=== PATIENT | male | born 1965 | race Caucasian/White ===

== ENCOUNTER 2021-01-11 18:53 | Emergency (ER) | payer MEDICAID, SELFPAY ==
--- NOTE | ~2021-01-11 | XR_ITS ---
EXAMINATION: XR BILATERAL ANKLES/FEET CLINICAL INFORMATION: Swelling and pain COMPARISON: None TECHNIQUE: AP and oblique views of each ankle. AP, lateral and oblique views of each foot. FINDINGS: No acute fracture or dislocation. Small marginal osteophytes along the tibiotalar joints bilaterally. Moderate right and small left plantar calcaneal enthesophytes. Tiny Achilles tendon enthesophyte is present bilaterally. Mild degenerative changes of the first metatarsophalangeal joints, associated with small bunions on each foot. Trace bilateral vascular calcifications. XR/XR ankle RT min 3V IMPRESSION: No acute findings. Degenerative changes as described.
--- NOTE | ~2021-01-11 | XR_ITS ---
EXAMINATION: XR BILATERAL ANKLES/FEET CLINICAL INFORMATION: Swelling and pain COMPARISON: None TECHNIQUE: AP and oblique views of each ankle. AP, lateral and oblique views of each foot. FINDINGS: No acute fracture or dislocation. Small marginal osteophytes along the tibiotalar joints bilaterally. Moderate right and small left plantar calcaneal enthesophytes. Tiny Achilles tendon enthesophyte is present bilaterally. Mild degenerative changes of the first metatarsophalangeal joints, associated with small bunions on each foot. Trace bilateral vascular calcifications. XR/XR ankle LT min 3V IMPRESSION: No acute findings. Degenerative changes as described.
--- NOTE | ~2021-01-11 | XR_ITS ---
EXAMINATION: XR BILATERAL ANKLES/FEET CLINICAL INFORMATION: Swelling and pain COMPARISON: None TECHNIQUE: AP and oblique views of each ankle. AP, lateral and oblique views of each foot. FINDINGS: No acute fracture or dislocation. Small marginal osteophytes along the tibiotalar joints bilaterally. Moderate right and small left plantar calcaneal enthesophytes. Tiny Achilles tendon enthesophyte is present bilaterally. Mild degenerative changes of the first metatarsophalangeal joints, associated with small bunions on each foot. Trace bilateral vascular calcifications. XR/XR foot LT 2V IMPRESSION: No acute findings. Degenerative changes as described.
--- NOTE | ~2021-01-11 | XR_ITS ---
EXAMINATION: XR BILATERAL ANKLES/FEET CLINICAL INFORMATION: Swelling and pain COMPARISON: None TECHNIQUE: AP and oblique views of each ankle. AP, lateral and oblique views of each foot. FINDINGS: No acute fracture or dislocation. Small marginal osteophytes along the tibiotalar joints bilaterally. Moderate right and small left plantar calcaneal enthesophytes. Tiny Achilles tendon enthesophyte is present bilaterally. Mild degenerative changes of the first metatarsophalangeal joints, associated with small bunions on each foot. Trace bilateral vascular calcifications. XR/XR foot RT 2V IMPRESSION: No acute findings. Degenerative changes as described.
--- NOTE | ~2021-01-11 | XR_ITS ---
EXAMINATION: XR CHEST CLINICAL INFORMATION: Bilateral lower extremity swelling. COMPARISON: 11/08/2019 TECHNIQUE: PA and lateral views of the chest were obtained. FINDINGS: Lungs are hyperexpanded and clear. No consolidation, pneumothorax, or pleural effusion. Cardiac and mediastinal contours are normal. Pulmonary vasculature is unremarkable. Trachea is midline. Degenerative disc disease is present in the thoracic spine. XR/XR chest 2V IMPRESSION: No acute cardiopulmonary findings.
--- NOTE | ~2021-01-11 | US_ITS ---
EXAMINATION: US VENOUS ULTRASOUND WITH DOPPLER LOWER EXTREMITY, BILATERAL CLINICAL INFORMATION: Bilateral foot swelling COMPARISON: None TECHNIQUE: Ultrasound of the deep veins is performed from the hip to the calf with compression sonography and color and pulse Doppler assessment. Spectral analysis with color-flow imaging is performed. FINDINGS: RIGHT: There is normal venous compression and respiratory variation and augmented flow. The visualized common femoral vein, superficial femoral vein, profunda femoral vein, popliteal vein, and the trifurcation region shows no evidence of deep venous thrombosis. There is no significant popliteal fossa cyst. LEFT: There is normal venous compression and respiratory variation and augmented flow. The visualized common femoral vein, superficial femoral vein, profunda femoral vein, popliteal vein, and the trifurcation region shows no evidence of deep venous thrombosis. There is no significant popliteal fossa cyst. If the patient's symptoms persist, followup ultrasound in 5 days 7 days might be of value to exclude proximal propagation from a non-visualized calf vein. US/US venous duplex LE BI IMPRESSION: No DVT demonstrated in either lower extremity.
[2021-01-11 19:54] VITALS: BP 172/90; PULSE 79; RESP 18; TEMP 37.1; O2SAT 98; BMI 29.8
[2021-01-11 20:51] LABS: MANUAL DIFF FLAG NO
[2021-01-11 20:52] LABS: Basophils Percent Auto 0.4 % (0-2); Eosinophils Absolute Auto 0.2 X10*3/uL (0.0-0.4); Eosinophils Percent Auto 2.7 % (0-4); Hematocrit 39.2 % (42-52); Hemoglobin 12.8 g/dl (14.0-18.0); Imm Gran Abs Auto 0.04 X10*3/uL (0.00-0.03); Imm Gran Pct Auto 0.5 % (0.0-0.4); Lymphocytes Absolute Auto 1.2 X10*3/uL (1.2-4.9); Lymphocytes Percent Auto 15.8 % (20-40); Mean Corpuscular HGB Conc 32.7 g/dl (31.0-36.0); Mean Corpuscular Hemoglobin 29.4 pg (27.0-33.0); Mean Corpuscular Volume 89.9 fL (80-98); Mean Platelet Volume 9.8 fL (9.4-12.4); Monocytes Absolute Auto 0.6 X10*3/uL (0.1-1.2); Monocytes Percent Auto 8.1 % (2-11); Neutrophils Absolute Auto 5.5 X10*3/uL (2.0-8.3); Neutrophils Percent Auto 72.5 % (45-73); Platelet Count 182 X10*3/uL (160-400); Red Blood Count 4.36 X10*6/uL (4.60-5.80); Red Cell Distribution Width 12.2 % (11.0-16.0); White Blood Count 7.5 X10*3/uL (4.8-10.8)
[2021-01-11 21:13] LABS: Anion Gap 14 (12-20); Blood Urea Nitrogen 14 mg/dL (9-16); Calcium 9.2 mg/dL (8.4-10.2); Carbon Dioxide 26 mmol/L (22-29); Chloride 104 mmol/L (96-108); Creatinine Clr Calc Pharmacy 130.8; Estimated Glomerular Filt Rate > 60; Glucose Random 89 mg/dL (60-115); Potassium 4.4 mmol/L (3.3-5.1); Sodium 140 mmol/L (135-145)
[2021-01-11 21:20] LABS: B Type Natriuretic Peptide 184 pg/mL (<100)
[2021-01-12] VITALS: BP 147/86; PULSE 55; RESP 15; TEMP 37.1; O2SAT 98
--- NOTE | 2021-01-12 00:15 | ED_ITS ---
HPI - Extremity Injury (Lower) General Chief Complaint: Extremity Injury, Lower Stated Complaint: feet swelling Time Seen by Provider: 01/11/21 22:26 Source: patient Mode of arrival: ambulatory Limitations: no limitations History of Present Illness HPI Narrative: Patient presents to ED for bilateral swelling of ankle and foot for the past 2 weeks. Patient states no chest pain or shortness of breath. Patient states pain in the plantar aspect of foot. Denies any recent trauma to lower extremities. Patient states no chest pain coughing up blood, calf pain, recent long travel, recent surgery. Related Data Previous Rx's Medication Instructions Recorded naproxen 500 mg tablet 500 mg PO BID PRN #20 tab 01/12/21 Allergies Allergy/AdvReac Type Severity Reaction Status Date / Time No Known Allergies Allergy Verified 01/11/21 19:53 Review of Systems Review of Systems: Yes all other systems are reviewed and are negative Constitutional: Constitutional: Reports as per HPI and Reports no additional constitutional complaints Eyes: Eyes: Reports as per HPI and Reports no additional eye complaints ENT: Reports system reviewed and no additional complaints, except as documented and Reports as per HPI Respiratory: Respiratory: Reports as per HPI Gastrointestinal: Gastrointestinal: Reports as per HPI and Reports no additional gastrointestinal complaints Musculoskeletal: Musculoskeletal: Reports no additional musculoskeletal complaints and Reports as per HPI Comments: Bilateral ankle/foot swell ing/pain Neurologic: Reports system reviewed and no additional complaints, except as documented and Reports as per HPI Psychiatric: Psychiatric: Reports no additional psychiatric complaints and Reports as per HPI ON LICENSE OF [facility] Past Medical History Medical History (Updated 01/12/21 @ 00:40 by JIMMY Manning) Arthritis Patient denies medical problems Social History Social History Advance Directives: No Advance Directives Information Provided: Yes Physical Exam Vital Signs: Vital Signs: Last Vital Signs Temp 98.7 F 01/12/21 00:00 Pulse 55 01/12/21 00:00 Resp 15 01/12/21 00:00 BP 147/86 H 01/12/21 00:00 Pulse Ox 98 01/12/21 00:00 Body Mass Index 29.8 Const: General: cooperative, healthy appearing, comfortable, no acute distress, well developed, alert, awake and Physically active Orientation/consciousness: patient oriented x3 HENMT: Head: Yes normal to inspection, Yes No palpable skull fracture present, Yes normocephalic, Yes atraumatic and No abrasion Eyes: General: appearance normal, both eyes and all related structures Neck: Neck: Yes normal visual inspection, Yes full ROM, Yes no lymph adenopathy, Yes no meningeal signs, Yes trachea midline, Yes supple and No tender Chest: Chest palpation & inspection: normal inspection of the chest and normal palpation of entire chest wall Resp: Effort & Inspection: normal respiratory effort and able to speak in complete sentences Cardio: Jugular venous distension: no JVD Heart sounds: S1 normal heart sound present and S2 normal heart sound present GI: Inspection: Yes normal to inspection and No abdominal wall ecchymosis Palpation (GI): Soft to palpation, not firm, nontender, no guarding and not rigid : General: No CVA tenderness and Yes no CVA tenderness Back/Spine/Pelvis: Back: no CVA tenderness, No CVA tenderness and No back tenderness Skin: General skin exam: no rashes or lesions noted and elasticity normal Neuro: General: patient oriented x3, gait normal, moves all extremities, no meningeal signs and CN's II-XI intact bilaterally Extrem: Other: Lower extremities bilaterally positive for slight swelling of ankle and foot. Negative for any redness, pitting edema, or tenderness. Vascular/motor/neuro exam of lower extremities intact. Psych: Appearance: grossly normal, well kempt and not disheveled Course Course Course Narrative: Patient was wrapping medical screen. EKG and BNP was ordered Reevaluation(s) Reevaluation #1: BNP negative. EKG sinus Justin negative for STEMI. No need for troponin. Patient is not having any chest pain or shortness of breath. Lower extremities negative for any DVT is for ultrasound for. X-rays negative for any fractures. Patient to be discharged. X-rays shows arthritis of foot and ankle. Time: 20:37 MDM - Extremity Injury (Lower) MDM Narrative Medical decision making narrative: Venous stasis. Degenerate disc disease Lab Data Result diagrams: 01/11/21 20:47 01/11/21 20:47 Labs: Lab Results 01/11/21 01/11/21 01/11/21 Range/Units 20:47 20:47 20:47 WBC 7.5 (4.8-10.8) X10*3/uL RBC 4.36 L (4.60-5.80) X10*6/uL Hgb 12.8 L (14.0-18.0) g/dl Hct 39.2 L (42-52) % MCV 89.9 (80-98) fL MCH 29.4 (27.0-33.0) pg MCHC 32.7 (31.0-36.0) g/dl RDW 12.2 (11.0-16.0) % Plt Count 182 (160-400) X10*3/uL MPV 9.8 (9.4-12.4) fL Immature Gran % (Auto) 0.5 H (0.0-0.4) % Neut % (Auto) 72.5 (45-73) % Lymph % (Auto) 15.8 L (20-40) % Spink % (Auto) 8.1 (2-11) % Eos % (Auto) 2.7 (0-4) % Baso % (Auto) 0.4 (0-2) % Lymph # (Auto) 1.2 (1.2-4.9) X10*3/uL Spink # (Auto) 0.6 (0.1-1.2) X10*3/uL Eos # (Auto) 0.2 (0.0-0.4) X10*3/uL Baso # (Auto) 0.0 (0.0-0.2) X10*3/uL Abs Immat Gran (auto) 0.04 H (0.00-0.03) X10*3/uL Absolute Neuts (auto) 5.5 (2.0-8.3) X10*3/uL Absolute Nucleated RBC 0.000 (0.0-0.012) X10*3/uL Nucleated RBC % (auto) 0.0 (0.0-0.2) /100WBC Sodium 140 (135-145) mmol/L Potassium 4.4 (3.3-5.1) mmol/L Chloride 104 (96-108) mmol/L Carbon Dioxide 26 (22-29) mmol/L Anion Gap 14 (12-20) BUN 14 (9-16) mg/dL Creatinine 0.78 (0.5-1.4) mg/dL Estim Creat Clear Calc 130.8 Estimated GFR > 60 Random Glucose 89 (60-115) mg/dL Calcium 9.2 (8.4-10.2) mg/dL B-Natriuretic Peptide 184 H (<100) pg/mL ECG Data Interpretation: Sinus bradycardia. Reticular 55. Pr interval 146. Kerrison 100. Negative STEMI Discharge Plan Discharge Clinical Impression: Venous stasis, Osteoarthritis Patient Disposition: Home, Self-Care Instructions: Osteoarthritis (ED), Venous Insufficiency (DC) Additional Instructions: EKG came back normal. Chest x-ray and blood work came back negative for signs of heart failure. Ultrasound came back negative for blood clots. X-ray shows mild osteoarthritis. Return to the ED for any chest pain, some increased swelling of lower extremities, calf pain, coughing up blood, fever, chills, or any other concerning symptoms. Please follow up wth PCP. Prescriptions: New naproxen 500 mg tablet 500 mg PO BID PRN (Reason: pain) Qty: 20 RF: 0 Print Language: Swedish
--- NOTE | 2021-01-12 00:22 | ECG_ITS ---
Test Reason : LEG SWELLING Blood Pressure : / mmHG Vent. Rate : 055 BPM Atrial Rate : 055 BPM P-R Int : 146 ms QRS Dur : 100 ms QT Int : 432 ms P-R-T Axes : 058 049 028 degrees QTc Int : 413 ms Sinus bradycardia Otherwise normal ECG When compared with ECG of 01-MAY-2003 14:26, No significant change was found Referred By: Mannie Lee Electronically Signed By:Declan Arrieta
== END 2021-01-12 01:17 | disposition home or self-care (01) ==
PROVIDERS: Emergency Provider Internal Medicine; PCP Internal Medicine
DX: I87.8 Other specified disorders of veins (principal); M19.072 Primary osteoarthritis, left ankle and foot; M19.071 Primary osteoarthritis, right ankle and foot; M79.89 Other specified soft tissue disorders; M79.672 Pain in left foot; M79.671 Pain in right foot
CPT/HCPCS: 36415; 71046; 73610; 73620; 80048; 83880; 85025; 93005; 93970; 99284

== ENCOUNTER 2021-02-23 20:28 | Emergency (ER) | payer MEDICAID, SELFPAY ==
[2021-02-23 20:56] VITALS: BP 160/100; PULSE 116; PULSE 77; RESP 18; O2SAT 96; O2SAT 98; BMI 29.5
--- NOTE | 2021-02-23 21:07 | ED_ITS ---
HPI - General Adult General Chief complaint: Overdose Stated complaint: OD Time Seen by Provider: 02/23/21 20:52 Source: patient Mode of arrival: EMS Limitations: no limitations History of Present Illness HPI narrative: 56-year-old male who presents emergency department for evaluation of an unintentional narcotic overdose. The patient states that he has been in the [facility] Suboxone program since May 2020. He states that he has been doing well with only occasional use of heroin. He states however over the past 2 days he has been using inter nasal heroin. He states that throughout the day he inhaled anywhere from 6-7 bags of heroin. The patient was apparently found unresponsive by his family who called 911. The paramedics stated the patient was awake but very slow to respond. He was given intranasal Narcan with reversal of his somnolence. At the time of evaluation in the emergency department, the patient is awake alert and able to give a good history. He states that he did have an overdose approximately 1 year prior and he believes that this is his 2nd unintentional overdose. The patient states that he has to agile scrum coach is and is scheduled to go back to the Suboxone clinic in 2 days. Patient states he does not want to talk to a care team counselor or our agile scrum coach at this time. Related Data Previous Rx's Medication Instructions Recorded naproxen 500 mg tablet 500 mg PO BID PRN #20 tab 01/12/21 Allergies Allergy/AdvReac Type Severity Reaction Status Date / Time No Known Allergies Allergy Verified 01/11/21 19:53 Review of Systems Review of Systems: Yes all other systems are reviewed and are negative [facility] Past Medical History [facility] Narrative: Past medical history: Pre diabetes, hypertension, hyperlipidemia. Past surgical history: None. Social history:. He states he lives with his family. Smokes 10 cigarettes per day times 42 years. He states that he drinks 2-4 25 oz cans of beer per day. He states that he intermittently uses intranasal heroin. Medical History Arthritis Patient denies medical problems Social History Social History Alcohol intake: unknown Patient Tobacco Use Status: Current everyday Tobacco user Substance Use Type: Heroin Advance Directives: No Advance Directives Information Provided: Yes Physical Exam Vital Signs: Vital Signs: Last Vital Signs Pulse 70 02/23/21 23:52 Resp 20 02/23/21 23:52 BP 119/66 02/23/21 23:52 Pulse Ox 96 02/23/21 23:52 Body Mass Index 29.5 Const: General: cooperative and no acute distress Orientation/consciousness: oriented to person and oriented to place Limitations: no limitations HENMT: Head: Yes normal to inspection, Yes normocephalic and Yes atraumatic Ears: external ears normal General nose exam: Normal external nose present Face and sinus: Yes normal facial exam Mouth: Normal oral and palatal mucosa present Throat: Yes posterior oropharynx normal Eyes: General: appearance normal, both eyes and all related structures Pupils: Equal, round and reactive pupils present Neck: Neck: Yes normal visual inspection, Yes no lymphadenopathy, Yes trachea midline and Yes supple Chest: Chest palpation & inspection: normal inspection of the chest and normal palpation of entire chest wall Resp: Effort & Inspection: normal respiratory effort and able to speak in complete sentences Auscultation: clear to auscultation bilaterally Cardio: Rate: regular rate Rhythm: regular rhythm Heart sounds: S1 normal heart sound present, S2 normal heart sound present and no murmurs GI: Inspection: Yes normal to inspection Palpation (GI): Soft to palpation, nontender and no guarding Auscultation: normal bowel sounds : General: Yes no CVA tenderness Back/Spine/Pelvis: Back: no CVA tenderness Skin: General skin exam: no rashes or lesions noted Neuro: General: oriented to person and oriented to place Cranial nerves: Yes CN's II-XII intact bilaterally and Yes Equal, round and reactive pupils present Cognition (Neuro): normal cognition Motor exam (neuro): 5/5 motor strength present throughout Extrem: General: Yes normal to inspection Psych: Appearance: grossly normal Speech and movement: Normal speech and movement present Affect: normal affect Attitude: cooperative Thought process: Normal thought process present Thought content: Normal thought content present Course Course Course Narrative: 56-year-old male with a history of heroin use disorder who is currently in a Suboxone program who presents emergency department for evaluation of unintentional overdose after using multiple bags of intranasal heroin today. The patient was found minimally responsive by his family who called EMS. On EMS arrival the patient was somnolent and was treated with intranasal Narcan with reversal of his symptoms. At the time of my evaluation, he has no complaints. The patient does appear to be remorseful and states that he does not want to and wants to get more help. States however he does not want to talk to our crisis counselors today but will follow up with a Suboxone clinic in 2 days. The patient's physical examination was unremarkable. The patient will be monitored for respiratory discretion for 2 hours. I will check an alcohol level on him and and alcohol level. 0015: The patient's alcohol level was below detectable limits. Tox screen was positive for opiates and positive for fentanyl. patient was observed in the emergency department for approximately 3 hours, during this time he remained awake and alert and had no respiratory distress. The patient will be discharged home. The patient is going to follow up with his Suboxone clinic in 2 days the discuss increasing his dose. The patient was discharged with intranasal Narcan I did discuss with him that if he continues to use opiates he should make sure the uses with a sober person that can given Narcan in the event that he stops breathing. Patient was discharged home. Medical Decision Making Lab Data Labs: Lab Results 02/23/21 02/23/21 Range/Units 23:09 23:26 Urine Opiates Screen POSITIVE H (Not Detect) Urine Fentanyl Screen POSITIVE H (Not Detect) Ur Barbiturates Screen Not Detected (Not Detect) Ur Phencyclidine Scrn Not Detected (Not Detect) Ur Amphetamines Screen Not Detected (Not Detect) U Benzodiazepines Scrn Not Detected (Not Detect) Urine Cocaine Screen Not Detected (Not Detect) U Marijuana (THC) Screen Not Detected (Not Detect) Ethyl Alcohol < 10 mg/dL Discharge Plan Discharge Clinical Impression: Drug overdose Qualifiers: Encounter type: initial encounter Injury intent: accidental or unintentional Qualified Code(s): T50.901A - Poisoning by unspecified drugs, medicaments and biological substances, accidental (unintentional), initial encounter Patient Disposition: Home, Self-Care Instructions: Narcotic Safety (ED), Narcotic Use Disorder (ED) Additional Instructions: Your drug screen was positive for fentanyl and this is the most likely reason why you accidentally overdosed. Most heroin that you by today has fentanyl in it and this is the cause of from opiate use. Your are being discharged home with intranasal Narcan. If you are going to continue to use heroin, you should make sure that there is a sober person with you that is not using drugs and that this person can administer intranasal Narcan in the event that you stop breathing. Follow-up with your Suboxone clinic in 1-2 days to discuss possibly increasing your dose of Suboxone to help reduce your craving for narcotics. Follow-up with your doctor in 2 days. Please return to the emergency department if your symptoms get worse or if you develop any symptoms that are concerning to you. Prescriptions: No Action naproxen 500 mg tablet 500 mg PO BID PRN (Reason: pain) Qty: 20 RF: 0
[2021-02-23 22:58] VITALS: BP 125/68; PULSE 75; O2SAT 95
[2021-02-23 23:34] LABS: Ethanol < 10 mg/dL
[2021-02-23 23:47] LABS: Amphetamine Screen Urine Not Detected (Not Detect); Barbiturates, Urine Not Detected (Not Detect); Benzodiazepines Screen Urine Not Detected (Not Detect); Cannabinoid Screen Urine Not Detected (Not Detect); Cocaine Screen Urine Not Detected (Not Detect); Fentanyl, urine POSITIVE (Not Detect); Opiate Screen Urine POSITIVE (Not Detect); Phencyclidine Screen Urine Not Detected (Not Detect)
[2021-02-23 23:52] VITALS: BP 119/66; PULSE 70; RESP 20; O2SAT 96
[2021-02-24] VITALS: BP 119/66; PULSE 67; RESP 16; O2SAT 97
[2021-02-24] MEDS: Naloxone HCl Nasal TAKE HOME 4 MG SPRAY NOSTRILALT (00:50)
--- NOTE | 2021-02-24 00:50 | PC.NURSE ---
pt was given nasal narcan to take home and insructions given on how to use. and pt returned verbal acknowlgement.
== END 2021-02-24 00:54 | disposition home or self-care (01) ==
PROVIDERS: Emergency Provider Emergency Medicine Emergency Medical Services
DX: T40.1X1A Poisoning by heroin, accidental (unintentional), initial encounter (principal); Y92.9 Unspecified place or not applicable; F11.10 Opioid abuse, uncomplicated; Z79.899 Other long term (current) drug therapy; Z71.51 Drug abuse counseling and surveillance of drug abuser
CPT/HCPCS: 36415; 80307; 82077; 99284

== ENCOUNTER 2021-07-16 15:36 | Outpatient (REF) | payer MEDICAID, SELFPAY ==
--- NOTE | ~2021-07-16 | MR_ITS ---
EXAMINATION: MR LUMBAR SPINE WITHOUT CONTRAST CLINICAL INFORMATION: 56-year-old with worsening low back pain and complaints of leg numbness. COMPARISON: None TECHNIQUE: MRI of the lumbar spine was obtained using routine sequences without contrast. FINDINGS: CORONAL ALIGNMENT: Slight mid to lower lumbar dextrocurvature. SAGITTAL ALIGNMENT: Normal. LUMBOSACRAL JUNCTION: Normal. VERTEBRAL BODIES: Mild loss of height of the L4 vertebral body is noted, the chronicity of which is uncertain. Remaining vertebral body heights are well maintained. There is suspicion for nondisplaced subchondral fractures along the inferior endplate of L4 and along the superior endplate of L5 with associated marrow edema throughout both the L4 and L5 vertebral bodies extending into the right L4 and L5 pedicles. Band-like zones of low T1 signal are seen corresponding to these regions of marrow edema which are consistent with compression fractures. Remaining vertebral bodies demonstrate normal height. DISC SPACES AND ENDPLATES: Moderate to severe disc space height loss at L4-L5 noted with intradiscal degenerative signal changes and probable vacuum disc phenomenon. Moderate disc space height loss and disc desiccation at L3-L4 also noted with Schmorl's nodes at L3-L4 and L4-L5. Mild anterior marginal spondylosis noted at these levels. Remaining intervertebral disc space heights and signal are well maintained. SPINAL CANAL: No abnormal developmental findings. BONE MARROW: See above for findings at L4-L5. There is focal type II and type I degenerative marrow signal change seen along the inferior endplate of L3 posteriorly. Note that there is also some bone marrow edema within the superior and inferior articulating facets of the right L4-L5 facet joint. Remainder of the bone marrow appears unremarkable. CONUS MEDULLARIS: Terminates at T12. Morphology and signal is normal. INTRADURAL NERVE ROOTS: Within normal limits. L5-S1: Normal disc contour. Minor facet arthropathy bilaterally. No canal or neural foraminal stenosis. L4-L5: Diffuse disc bulging is noted with bilateral paravertebral/posterolateral disc osteophyte complexes, with flattening of the dural sac asymmetric to the right. There is ligamentum flavum thickening and moderate to marked right-sided and [id number] left-sided facet arthropathy. Slightly prominent dorsal epidural fat pad also noted. There is mild central spinal canal stenosis. There is severe right lateral recess stenosis with impingement on the traversing right L5 nerve root. There is severe right-sided neural foraminal stenosis with right L4 nerve root impingement and there is also [id number] left-sided neural foraminal stenosis. No significant retropulsion of suspected L5 or L4 vertebral body fractures. L3-L4: Concentric disc bulging is noted with bilateral paravertebral/posterolateral disc osteophyte complex and [id number] facet arthropathy with mild ligamentum flavum thickening without significant canal stenosis. There is moderate left-sided and gqkx-[id number] right-sided neural foraminal stenosis with slight impingement on the exiting left L3 nerve root. L2-L3: Normal disc contour. Mild facet arthropathy bilaterally. No canal or neural foraminal stenosis. L1-L2: Normal disc contour. No facet arthropathy, canal or neural foraminal stenosis. PARASPINAL/RETROPERITONEAL: The paravertebral soft tissues are unremarkable. MR/MR lumbar spine wo con IMPRESSION: 1. Findings suggesting mild, nonhealed compression fractures of L4 and L5. Suggest correlation with bone mineral density. No significant retropulsion. 2. Disc degenerative changes at L4-L5 and L3-L4 as discussed above with disc bulging and posterior element hypertrophic degenerative changes at this level with posterolateral disc osteophyte complex. Severe right lateral recess stenosis at L4-L5 with impingement on the traversing right L5 nerve root and mild central spinal canal stenosis at this level with severe right-sided neural foraminal stenosis and impingement on the exiting right L4 nerve root and hdgj-[id number] left-sided neural foraminal stenosis. 3. Moderate left-sided and [id number] right-sided neural foraminal stenosis at L3-L4, with slight impingement on the exiting left L3 nerve root.
== END 2021-07-16 15:37 | disposition home or self-care (01) ==
LOC: HO.MRI 15:36
PROVIDERS: Visit Provider Internal Medicine
DX: M54.16 Radiculopathy, lumbar region (principal)
CPT/HCPCS: 72148

== ENCOUNTER 2022-11-22 08:29 | Outpatient (REF) | payer MEDICARE, MEDICAID, SELFPAY ==
[2022-11-22 08:55] LABS: MANUAL DIFF FLAG NO
[2022-11-22 09:29] LABS: Basophils Percent Auto 0.7 % (0-2); Eosinophils Absolute Auto 0.2 X10*3/uL (0.0-0.4); Eosinophils Percent Auto 4.7 % (0-4); Hematocrit 39.3 % (42.0-52.0); Hemoglobin 12.8 g/dl (14.0-18.0); Imm Gran Abs Auto 0.02 X10*3/uL (0.00-0.03); Imm Gran Pct Auto 0.4 % (0.0-0.4); Lymphocytes Absolute Auto 1.4 X10*3/uL (1.2-4.9); Lymphocytes Percent Auto 30.4 % (20-40); Mean Corpuscular HGB Conc 32.6 g/dl (31.0-36.0); Mean Corpuscular Hemoglobin 30.1 pg (27.0-33.0); Mean Corpuscular Volume 92.5 fL (80.0-98.0); Monocytes Absolute Auto 0.5 X10*3/uL (0.1-1.2); Monocytes Percent Auto 10.7 % (2-11); Neutrophils Absolute Auto 2.4 x10*3/uL (2.0-8.3); Neutrophils Percent Auto 53.1 % (45-73); Platelet Count 181 X10*3/uL (160-400); Red Blood Count 4.25 X10*6/uL (4.60-5.80); Red Cell Distribution Width 12.2 % (11.0-16.0); White Blood Count 4.5 X10*3/uL (4.8-10.8)
[2022-11-22 09:57] LABS: Estimated Average Glucose 103 mg/dL; Hemoglobin A1c % 5.2 %
[2022-11-22 10:16] LABS: Alanine Aminotransferase 70 U/L (0-40); Albumin Level 4.3 g/dL (3.5-5.0); Alkaline Phosphatase 76 U/L (39-117); Anion Gap 15 (12-20); Aspartate Amino Transferase 59 U/L (5-37); Bilirubin Total 0.9 mg/dL (0.0-1.0); Blood Urea Nitrogen 10 mg/dL (9-16); Calcium 9.2 mg/dL (8.4-10.2); Carbon Dioxide 26 mmol/L (22-29); Chloride 104 mmol/L (96-108); Cholesterol 268 mg/dL; Estimated Glomerular Filt Rate > 60; Glucose Random 110 mg/dL (60-115); HDL Cholesterol 155 mg/dL; LDL Cholesterol Calculated 107 mg/dl; Potassium 3.5 mmol/L (3.3-5.1); Sodium 141 mmol/L (135-145); Total Protein 7.9 g/dL (6.5-8.0); Triglycerides 32 mg/dL
[2022-11-22 10:47] LABS: Vitamin B12 472 pg/mL (200-900)
[2022-11-22 10:50] LABS: Prostate Specific Antigen 0.41 ng/mL (<0.05-4.0)
[2022-11-23 06:10] LABS: Syphilis Screen Nonreactive (Nonreactive)
[2022-11-23 07:35] LABS: HIV AB/AG Nonreactive (Nonreactive); HIV Num 1 0.07 S/CO (0.00-0.99)
[2022-11-28 12:44] LABS: Vitamin B1 22 nmol/L (8-30)
== END 2022-11-22 08:30 | disposition home or self-care (01) ==
LOC: HO.LAB 08:29
PROVIDERS: PCP Registered Nurse; Visit Provider Registered Nurse
DX: Z00.00 Encounter for general adult medical examination without abnormal findings (principal); Z12.5 Encounter for screening for malignant neoplasm of prostate; Z11.4 Encounter for screening for human immunodeficiency virus [HIV]; Z11.3 Encounter for screening for infections with a predominantly sexual mode of transmission; F10.90 Alcohol use, unspecified, uncomplicated; R60.9 Edema, unspecified; R39.14 Feeling of incomplete bladder emptying; R73.01 Impaired fasting glucose; I10 Essential (primary) hypertension
CPT/HCPCS: 36415; 80053; 80061; 82607; 82746; 83036; 84153; 84425; 84443; 85025; 86780; 87389

== ENCOUNTER 2022-12-12 10:00 | Outpatient (REF) | payer MEDICARE, MEDICAID, SELFPAY ==
--- NOTE | ~2022-12-12 | XR_ITS ---
EXAMINATION: XR SHOULDER, RIGHT CLINICAL INFORMATION: Right shoulder pain COMPARISON: None available. TECHNIQUE: AP external rotation, Grashey, scapular Y, and axillary views of the right shoulder. FINDINGS: No acute fracture or malalignment. Mild degenerative spurring along the greater tuberosity. Minimal acromioclavicular osteoarthritis. No bone lesion or suspicious soft tissue calcification. XR/XR shoulder RT min 2V IMPRESSION: Minimal acromioclavicular and mild glenohumeral osteoarthritis. No acute abnormality.
== END 2022-12-12 10:01 | disposition home or self-care (01) ==
LOC: HO.LAB 10:00
PROVIDERS: PCP Registered Nurse; Visit Provider Registered Nurse
DX: M25.511 Pain in right shoulder (principal); R74.8 Abnormal levels of other serum enzymes; Z11.59 Encounter for screening for other viral diseases; Z72.89 Other problems related to lifestyle
CPT/HCPCS: 36415; 73030; 80076; 86704; 86706; 86709; 86803; 87340

== ENCOUNTER 2023-04-03 10:57 | Outpatient (REF) | payer MEDICARE, MEDICAID, SELFPAY ==
[2023-04-03 12:41] LABS: Alanine Aminotransferase 34 U/L (0-40); Albumin Level 4.1 g/dL (3.5-5.0); Alkaline Phosphatase 80 U/L (39-117); Anion Gap 12 (12-20); Aspartate Amino Transferase 30 U/L (5-37); Bilirubin Total 0.5 mg/dL (0.0-1.0); Blood Urea Nitrogen 15 mg/dL (9-16); Calcium 9.7 mg/dL (8.4-10.2); Carbon Dioxide 30 mmol/L (22-29); Chloride 101 mmol/L (96-108); Estimated Glomerular Filt Rate > 60; Glucose Random 131 mg/dL (60-115); Potassium 3.2 mmol/L (3.3-5.1); Sodium 140 mmol/L (135-145); Total Protein 7.7 g/dL (6.5-8.0)
== END 2023-04-03 10:58 | disposition home or self-care (01) ==
LOC: HO.LAB 10:57
PROVIDERS: PCP Registered Nurse; Visit Provider Registered Nurse
DX: E78.2 Mixed hyperlipidemia (principal)
CPT/HCPCS: 36415; 80053

== ENCOUNTER 2023-04-18 11:42 | Outpatient (REF) | payer MEDICARE, MEDICAID, SELFPAY ==
[2023-04-18 12:40] LABS: Alanine Aminotransferase 42 U/L (0-40); Albumin Level 4.3 g/dL (3.5-5.0); Alkaline Phosphatase 87 U/L (39-117); Anion Gap 13 (12-20); Aspartate Amino Transferase 42 U/L (5-37); Bilirubin Total 1.1 mg/dL (0.0-1.0); Blood Urea Nitrogen 15 mg/dL (9-16); Calcium 9.6 mg/dL (8.4-10.2); Carbon Dioxide 31 mmol/L (22-29); Chloride 97 mmol/L (96-108); Estimated Glomerular Filt Rate > 60; Glucose Random 109 mg/dL (60-115); Potassium 3.4 mmol/L (3.3-5.1); Sodium 138 mmol/L (135-145)
== END 2023-04-18 11:43 | disposition home or self-care (01) ==
LOC: HO.LAB 11:42
PROVIDERS: PCP Registered Nurse; Visit Provider Registered Nurse
DX: I10 Essential (primary) hypertension (principal)
CPT/HCPCS: 36415; 80053

== ENCOUNTER 2023-05-23 09:11 | Outpatient (REF) | payer MEDICARE, MEDICAID, SELFPAY ==
--- NOTE | ~2023-05-23 | US_ITS ---
EXAMINATION: US ABDOMEN LIMITED CLINICAL INFORMATION: Elevated LFTs. COMPARISON: Ultrasound abdomen 05/12/2014. TECHNIQUE: Real-time imaging of the right upper quadrant abdominal viscera. FINDINGS: PANCREAS: The pancreas is obscured by bowel gas. LIVER: The liver is normal in size. The liver contour is normal. There is diffuse increased liver parenchymal echogenicity, consistent with hepatic steatosis. No focal hepatic lesion. There is no intrahepatic biliary duct dilatation seen. GALLBLADDER: Normal. The gallbladder is physiologically distended without evidence of stones, sludge, polyps, wall thickening or pericholecystic fluid. COMMON BILE DUCT: Normal in caliber measuring 0.3 cm in diameter. RIGHT KIDNEY: Normal. No hydronephrosis. No renal calculi or focal parenchymal lesions. The kidney measures 11.8 cm in maximum dimension. FREE FLUID: None. US/US abdomen limited IMPRESSION: Hepatic steatosis.
== END 2023-05-23 09:12 | disposition home or self-care (01) ==
LOC: HO.US 09:11
PROVIDERS: PCP Registered Nurse; Visit Provider Registered Nurse
DX: R74.8 Abnormal levels of other serum enzymes (principal)
CPT/HCPCS: 76705

== ENCOUNTER 2023-07-03 11:46 | Outpatient (REF) | payer OTHER, SELFPAY ==
[2023-07-03 12:13] LABS: MANUAL DIFF FLAG NO
[2023-07-03 12:44] LABS: Basophils Absolute Auto 0.1 X10*3/uL (0.0-0.2); Basophils Percent Auto 0.9 % (0-2); Eosinophils Absolute Auto 0.2 X10*3/uL (0.0-0.4); Eosinophils Percent Auto 3.9 % (0-4); Hematocrit 40.1 % (42.0-52.0); Imm Gran Abs Auto 0.04 X10*3/uL (0.00-0.03); Imm Gran Pct Auto 0.7 % (0.0-0.4); Lymphocytes Absolute Auto 1.3 X10*3/uL (1.2-4.9); Lymphocytes Percent Auto 22.3 % (20-40); Mean Corpuscular HGB Conc 32.4 g/dl (31.0-36.0); Mean Corpuscular Hemoglobin 29.5 pg (27.0-33.0); Mean Corpuscular Volume 91.1 fL (80.0-98.0); Monocytes Absolute Auto 0.6 X10*3/uL (0.1-1.2); Monocytes Percent Auto 9.5 % (2-11); Neutrophils Absolute Auto 3.7 x10*3/uL (2.0-8.3); Neutrophils Percent Auto 62.7 % (45-73); Platelet Count 188 X10*3/uL (160-400); Red Cell Distribution Width 12.2 % (11.0-16.0); White Blood Count 5.9 X10*3/uL (4.8-10.8)
[2023-07-03 13:04] LABS: C Reactive Protein < 0.10 mg/dL (< or = 0.50)
[2023-07-03 13:29] LABS: Erythrocyte Sedimentation Rate 14 MM/HR (0-15)
== END 2023-07-03 11:47 | disposition home or self-care (01) ==
LOC: HO.LAB 11:46
PROVIDERS: PCP Registered Nurse; Visit Provider Registered Nurse
DX: R10.12 Left upper quadrant pain (principal)
CPT/HCPCS: 36415; 85025; 85652; 86140

== ENCOUNTER 2023-09-13 13:33 | Outpatient (REF) | payer MEDICARE, MEDICAID, SELFPAY ==
--- NOTE | ~2023-09-13 | CT_ITS ---
EXAMINATION: CT ABDOMEN WITH CONTRAST CLINICAL INFORMATION: Left upper quadrant pain COMPARISON: Previous abdominal ultrasound May 2023 and lumbar spine MRI July 2021 TECHNIQUE: Contiguous axial thin section helical images of the abdomen were performed following the administration of oral contrast and 85 mL of Omnipaque 350 intravenous contrast. The data set was reformatted in the coronal and sagittal planes and reviewed on an independent workstation. This CT examination was performed using dose optimization techniques as appropriate, variously including the following: *Automated exposure control *Adjustment of mA and/or kV according to patient size (this includes techniques or standardized protocols for targeted exams where dose is matched to indication/reason for exam; i.e. extremities or head) *Use of iterative reconstruction technique DLP: 345 mGy-cm FINDINGS: LUNG BASES: Lung bases are clear. LIVER, GALLBLADDER, AND BILIARY TREE: Unremarkable PANCREAS: Unremarkable SPLEEN: Unremarkable ADRENAL GLANDS AND KIDNEYS: Adrenal glands are unremarkable. Small low-attenuation lesion in the mid left kidney measuring 1 cm probably representing a cyst. No imaging follow-up recommended. Kidneys are otherwise normal. BOWEL LOOPS: Normal. The visualized appendix is normal. The stomach is normal. LYMPH NODES: Normal VASCULAR: Normal Small umbilical hernia containing fat. BONES: Degenerative changes of the lower lumbar spine. Probable Schmorl's node in the left superior endplate of the L4 vertebral body. Increased sclerosis of the inferior L4 and superior L5 vertebral bodies questionable for old or healing compression fractures. No cystic changes, bone loss or paraspinal soft tissue changes seen at this level to suggest infection/discitis. Clinical correlation recommended. This could be better evaluated with repeat MRI if clinically indicated. CT/CT abdomen w IV con IMPRESSION: No cause of left upper quadrant pain seen. Fleischner guidelines were followed.
[2023-09-13] MEDS: iohexoL 350 MG/ML 100 ML INFUS..BTL IV (15:02)
[2023-09-13] MEDS: Barium Sulfate Oral (Vanilla) 450 ML ORAL.SUSP PO (15:03)
[2023-09-14 09:49] LABS: Creatinine POC 0.8 mg/dL (0.5-1.4); GFR POC > 60
== END 2023-09-13 13:34 | disposition home or self-care (01) ==
LOC: HO.CT 13:33
PROVIDERS: PCP Registered Nurse; Visit Provider Registered Nurse
DX: R10.12 Left upper quadrant pain (principal); R10.2 Pelvic and perineal pain
CPT/HCPCS: 74160; 82565; Q9967

== ENCOUNTER 2023-10-19 14:36 | Outpatient (AMB) | payer MEDICARE, MEDICAID, SELFPAY ==
--- NOTE | 2023-10-19 14:43 | MHC.OFFVIS ---
Vital Signs 10/19/23 14:45 Height 6 ft Weight 247 lb 12.793 oz BMI 33.6 BP 152/75 H Blood Pressure Location Lt brachial Position Sitting Intake Visit Reasons: LUQ pain, abdominal pain Intake Note: Kieran presents as a new patient today for LUQ abdominal pain. CC: Patient c/o LUQ abdominal pain and swelling with onset last October. He also reports a few episodes of rectal bleeding after BM. Patient Services Representative Required: Yes Patient Services Representative Name: [id number] Klever Accompanied by: Self / Same As Patient Allergies No Known Allergies Allergy (Verified 10/19/23 14:55) HPI HPI LUQ pain, abdominal pain: Details: 58-year-old male here for initial evaluation of left upper quadrant abdominal pain. He is referred by [facility]. PMX Obesity-BMI 33 Alcohol dependence Hypertension Opioid dependence -Suboxone therapy Smoker High cholesterol Anxiety * SURGICAL HISTORY * ALLERGIES : NKDA * [place] LABS: Laboratory Tests 04/03/23 04/18/23 07/03/23 11:07 11:59 12:12 WBC 5.9 RBC 4.40 L Hgb 13.0 L Hct 40.1 L MCV 91.1 MCH 29.5 Plt Count 188 Estimated GFR > 60 Total Bilirubin 0.5 1.1 H AST 30 42 H ALT 34 42 H Alkaline Phosphatase 80 87 2016 COLONOSCOPY -[facility] PROCEDURE IN DETAIL: Digital rectal exam revealed prostate to be normal to digital palpation. Videocolonoscope was introduced without difficulty. It was navigated into the rectosigmoid-sigmoid on up through descending, transverse colon. General extrinsic abdominal pressure was applied. Scope easily traversed the ascending colon down into the cecal cap. Appendiceal orifice was seen. Ileocecal valve was well seen. No mucosal abnormalities were appreciated. Prep was excellent. Scope was slowly withdrawn. Good mucosal detail was seen. Anorectal verge was clear. ? GENERAL IMPRESSION: Normal exam. ? RECOMMENDATIONS: Current recommendations are for repeat asymptomatic screening colonoscopy would be in [address] ABDOMEN 09/20/23 FINDINGS: LUNG BASES: Lung bases are clear. LIVER, GALLBLADDER, AND BILIARY TREE: Unremarkable PANCREAS: Unremarkable SPLEEN: Unremarkable ADRENAL GLANDS AND KIDNEYS: Adrenal glands are unremarkable. Small low-attenuation lesion in the mid left kidney measuring 1 cm probably representing a cyst. No imaging follow-up recommended. Kidneys are otherwise normal. BOWEL LOOPS: Normal. The visualized appendix is normal. The stomach is normal. LYMPH NODES: Normal VASCULAR: Normal Small umbilical hernia containing fat. BONES: Degenerative changes of the lower lumbar spine. Probable Schmorl's node in the left superior endplate of the L4 vertebral body. Increased sclerosis of the inferior L4 and superior L5 vertebral bodies questionable for old or healing compression fractures. No cystic changes, bone loss or paraspinal soft tissue changes seen at this level to suggest infection/discitis. Clinical correlation recommended. This could be better evaluated with repeat MRI if clinically indicated. CT/CT abdomen w IV con IMPRESSION: No cause of left upper quadrant pain seen. TODAY'S VISIT [facility] #[id number] He has had pain in the left flank/abd. He had it last October when he was in [place] and it lasted 6 days of so but then went away. It happened again this October but it has since resolved. He feels he has a lot of gas and bloating, he was recently prescribed gas pills but he is unsure if this would help the pain. He denies CIC. It is described as a strong pain and he feel sit gets swollen when he has the pain. It is localized and does not move. The pain is worse when he sleeps on his left side and better if he sleeps on the right side. He can not ID any other associated sx. 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 There is an area that is slightly different left to right in size but appears more like a rectus muscle but could be bowels gas. This is the area of pain. He has gained a great deal of weight over the past few years. He complains of fatigue recently with SOB going up stairs. He is a smoker. He had a fairly recent colonoscopy in 2016 that was negative but we could consider repeating this. ROV 4 weeks. [facility] Medical History Arthritis Patient denies medical problems Surgical History H/O colonoscopy Social History Alcohol intake: unknown Patient Tobacco Use Status: Current everyday Tobacco user Substance Use Type: Heroin Review of Systems Const Denies fatigue, Denies fever(s), Denies night sweats, Denies poor appetite and Denies weight loss ENT Reports Normal hearing present, Denies dental pain, Denies dysphagia, Denies hearing loss, Denies mouth pain, Denies odynophagia, Denies throat swelling, Denies tongue swelling and Reports other (Dentition adequate) Card Reports no additional complaints Resp Reports no additional complaints GI Details: Reports abdominal pain, Denies melena, Reports bloating, Denies hematochezia, Denies constipation, Denies GI cramping, Denies dysphagia, Denies excessive flatus, Denies early satiety, Reports heartburn, Denies diarrhea, Denies nausea, Denies odynophagia, Denies vomiting and Denies hematemesis Musc Reports back pain Skin/Breast Denies pruritus, Denies lesions, Denies rash and Denies jaundice Neuro Reports Normal hearing present and Denies Abnormal speech present Psych Reports anxiety Endo Denies fatigue Aller/Immun Denies throat swelling and Denies tongue swelling Physical Exam Vital Signs: Last Vital Signs BP 152/75 H 10/19/23 14:45 BMI result Body Mass Index 33.6 Const General: cooperative, no acute distress, well developed and well groomed Nutritional Appearance: well nourished and obese Orientation/consciousness: oriented to person, oriented to place and oriented to time Limitations: language barrier HEENT Head: Yes normocephalic and Yes atraumatic Eyes General: appearance normal, both eyes and all related structures Pupils: Equal, round and reactive pupils present Neck Neck: Yes normal visual inspection and Yes no lymphadenopathy Thyroid: Thyroid normal Resp Effort & Inspection: normal respiratory effort and able to speak in complete sentences Auscultation: clear to auscultation bilaterally Cardio Rate: regular rate Rhythm: regular rhythm Heart sounds: Normal, physiologic split S2 sound present Peripheral pulses: radial pulses present and posterior tibial pulses present GI Inspection: No distended, Yes Abdominal panniculus present and Yes obesity Palpation (GI): Soft to palpation, nontender, no guarding, not rigid and No hepatosplenomegaly present Percussion: Yes normal to percussion Auscultation: normal bowel sounds Rectal Exam - Male: Yes deferred Skin General skin exam: no rashes or lesions noted, turgor normal, skin not dry, no jaundice, No spider nevi and no striae Rashes: no rashes Nails: normal Neuro General: oriented to person, oriented to place and oriented to time Cranial nerves: Yes Equal, round and reactive pupils present and Yes Normal hearing present Speech: No Abnormal speech present Extrem General: Yes normal to inspection, No clubbing, No cyanosis and No edema Psych Appearance: grossly normal and well kempt Mental Status: mental status grossly normal Speech and movement: Normal speech and movement present Affect: normal affect Attitude: cooperative Thought process: Normal thought process present and not confabulating Thought content: Normal thought content present Insight: Limited insight present (Psych) Judgement: Limited judgement present (Psych) Results Reviewed Results Reviewed: Laboratory Tests 04/03/23 04/18/23 07/03/23 11:07 11:59 12:12 WBC 5.9 RBC 4.40 L Hgb 13.0 L Hct 40.1 L MCV 91.1 MCH 29.5 Plt Count 188 Estimated GFR > 60 Total Bilirubin 0.5 1.1 H AST 30 42 H ALT 34 42 H Alkaline Phosphatase 80 87 2016 COLONOSCOPY [facility] PROCEDURE IN DETAIL: Digital rectal exam revealed prostate to be normal to digital palpation. Videocolonoscope was introduced without difficulty. It was navigated into the rectosigmoid-sigmoid on up through descending, transverse colon. General extrinsic abdominal pressure was applied. Scope easily traversed the ascending colon down into the cecal cap. Appendiceal orifice was seen. Ileocecal valve was well seen. No mucosal abnormalities were appreciated. Prep was excellent. Scope was slowly withdrawn. Good mucosal detail was seen. Anorectal verge was clear. ? GENERAL IMPRESSION: Normal exam. ? RECOMMENDATIONS: Current recommendations are for repeat asymptomatic screening colonoscopy would be in [address] ABDOMEN 09/20/23 FINDINGS: LUNG BASES: Lung bases are clear. LIVER, GALLBLADDER, AND BILIARY TREE: Unremarkable PANCREAS: Unremarkable SPLEEN: Unremarkable ADRENAL GLANDS AND KIDNEYS: Adrenal glands are unremarkable. Small low-attenuation lesion in the mid left kidney measuring 1 cm probably representing a cyst. No imaging follow-up recommended. Kidneys are otherwise normal. BOWEL LOOPS: Normal. The visualized appendix is normal. The stomach is normal. LYMPH NODES: Normal VASCULAR: Normal Small umbilical hernia containing fat. BONES: Degenerative changes of the lower lumbar spine. Probable Schmorl's node in the left superior endplate of the L4 vertebral body. Increased sclerosis of the inferior L4 and superior L5 vertebral bodies questionable for old or healing compression fractures. No cystic changes, bone loss or paraspinal soft tissue changes seen at this level to suggest infection/discitis. Clinical correlation recommended. This could be better evaluated with repeat MRI if clinically indicated. CT/CT abdomen w IV con IMPRESSION: No cause of left upper quadrant pain seen. Assessment & Plan Assessment & Plan (1) Abdominal pain: Code(s): R10.9 - Unspecified abdominal pain Category: Medical (2) Alcohol abuse: Code(s): F10.10 - Alcohol abuse, uncomplicated Category: Social Hx (3) Opioid dependence: Comment: ON SUBOXONE THERAPY Code(s): F11.20 - Opioid dependence, uncomplicated Category: Medical Plan [facility] #[id number] He has had pain in the left flank/abd. He had it last October when he was in [place] and it lasted 6 days of so but then went away. It happened again this October but it has since resolved. He feels he has a lot of gas and bloating, he was recently prescribed gas pills but he is unsure if this would help the pain. He denies CIC. It is described as a strong pain and he feel sit gets swollen when he has the pain. It is localized and does not move. The pain is worse when he sleeps on his left side and better if he sleeps on the right side. He can not ID any other associated sx. 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 There is an area that is slightly different left to right in size but appears more like a rectus muscle but could be bowels gas. This is the area of pain. He has gained a great deal of weight over the past few years. He complains of fatigue recently with SOB going up stairs. He is a smoker. He had a fairly recent colonoscopy in 2016 that was negative but we could consider repeating this. ROV 4 weeks. Orders: Orders XR thoracic spine 2V 10/19/23 R10.9 - Unspecified abdominal pain Medications: New dicyclomine 20 mg PO QID 120 tabs 6RF 30 days Coding Level of Care Code New Pt Level 3 (04664) Diagnoses Abdominal pain R10.9 Alcohol abuse F10.10 Opioid dependence F11.20
[2023-10-19 14:45] VITALS: BP 152/75; BMI 33.6
== END 2023-10-19 15:26 | disposition home or self-care (01) ==
PROVIDERS: PCP Registered Nurse; Visit Provider Nurse Practitioner
DX: R10.9 Unspecified abdominal pain (principal); F10.10 Alcohol abuse, uncomplicated; F11.20 Opioid dependence, uncomplicated
CPT/HCPCS: 99203

== ENCOUNTER → 2023-10-19 14:36 | Outpatient (BNVA) | payer MEDICARE, MEDICAID, SELFPAY | PROVIDERS: PCP Registered Nurse; Visit Provider Nurse Practitioner | DX: R10.9 Unspecified abdominal pain (principal); F11.20 Opioid dependence, uncomplicated; F10.10 Alcohol abuse, uncomplicated | CPT/HCPCS: 99202 ==

== ENCOUNTER 2023-10-30 10:03 | Outpatient (REF) | payer MEDICARE, MEDICAID, SELFPAY ==
--- NOTE | ~2023-10-30 | XR_ITS ---
EXAMINATION: XR THORACOLUMBAR SPINE CLINICAL INFORMATION: Unspecified abdominal pain. Patient stated left lower back pain. COMPARISON: CT abdomen and pelvis 09/13/2023. MRI lumbar spine 07/16/2021. Chest radiograph 01/11/2021. TECHNIQUE: 4 views of the thoracic spine. FINDINGS: Partially imaged cardiac silhouette is possibly enlarged and this could be evaluated with dedicated views of the chest. Mild dextroscoliosis of the thoracic spine. Degenerative changes on very limited images of the cervical spine could be evaluated with dedicated cervical spine radiographs. Progression of degenerative changes with large flowing osteophytes in the mid to lower thoracic spine since exam of 01/11/2021. Possible 1.2 cm nodular density overlying a lower thoracic vertebral body, best appreciated on the lateral view, as well as possible additional smaller sclerotic foci overlying lower thoracic vertebral bodies. Correlation with clinical exam and possible Additional imaging with CT scan or MRI recommended. XR/XR thoracic spine 2V IMPRESSION: Progression of degenerative changes with large flowing osteophytes in the mid to lower thoracic spine since exam of 01/11/2021. Possible 1.2 cm nodular density overlying a lower thoracic vertebral body, best appreciated on the lateral view, as well as possible additional smaller sclerotic foci overlying lower thoracic vertebral bodies. Correlation with clinical exam and possible additional imaging with CT scan or MRI recommended. This study was presented today November 14, 2023 for interpretation. STAT results provided at this time as requested by referring provider.
== END 2023-10-30 10:04 | disposition home or self-care (01) ==
LOC: HO.XRAY 10:03
PROVIDERS: PCP Registered Nurse; Visit Provider Nurse Practitioner
DX: R10.9 Unspecified abdominal pain (principal)
CPT/HCPCS: 72070

== ENCOUNTER 2024-01-03 11:30 | Outpatient (REF) | payer MEDICARE, MEDICAID, SELFPAY ==
[2024-01-03 12:09] LABS: MANUAL DIFF FLAG NO
[2024-01-03 12:47] LABS: Basophils Percent Auto 0.6 % (0-2); Eosinophils Absolute Auto 0.3 X10*3/uL (0.0-0.4); Hematocrit 40.4 % (42.0-52.0); Hemoglobin 13.5 g/dl (14.0-18.0); Imm Gran Abs Auto 0.03 X10*3/uL (0.00-0.03); Imm Gran Pct Auto 0.5 % (0.0-0.4); Lymphocytes Absolute Auto 1.4 X10*3/uL (1.2-4.9); Lymphocytes Percent Auto 20.9 % (20-40); Mean Corpuscular HGB Conc 33.4 g/dl (31.0-36.0); Mean Corpuscular Hemoglobin 29.7 pg (27.0-33.0); Mean Platelet Volume 10.7 fL (9.4-12.4); Monocytes Absolute Auto 0.7 X10*3/uL (0.1-1.2); Monocytes Percent Auto 10.4 % (2-11); Neutrophils Absolute Auto 4.1 x10*3/uL (2.0-8.3); Neutrophils Percent Auto 62.6 % (45-73); Platelet Count 153 X10*3/uL (160-400); Red Blood Count 4.54 X10*6/uL (4.60-5.80); White Blood Count 6.6 X10*3/uL (4.8-10.8)
[2024-01-03 13:27] LABS: Estimated Average Glucose 114 mg/dL; Hemoglobin A1c % 5.6 % (<6.0)
[2024-01-03 14:16] LABS: Alanine Aminotransferase 60 U/L (0-40); Albumin Level 4.2 g/dL (3.5-5.0); Alkaline Phosphatase 99 U/L (39-117); Anion Gap 13 (12-20); Aspartate Amino Transferase 49 U/L (5-37); Bilirubin Total 0.6 mg/dL (0.0-1.0); Blood Urea Nitrogen 14 mg/dL (9-16); Calcium 9.1 mg/dL (8.4-10.2); Carbon Dioxide 26 mmol/L (22-29); Chloride 102 mmol/L (96-108); Cholesterol 226 mg/dL (<200); Estimated Glomerular Filt Rate > 60; Glucose Random 127 mg/dL (60-115); HDL Cholesterol 118 mg/dL (>40); LDL Cholesterol Calculated 96 mg/dL (<100); Potassium 4.1 mmol/L (3.3-5.1); Sodium 137 mmol/L (135-145); Total Protein 7.6 g/dL (6.5-8.0); Triglycerides 62 mg/dL (<150)
== END 2024-01-03 11:31 | disposition home or self-care (01) ==
LOC: HO.LAB 11:30
PROVIDERS: PCP Registered Nurse; Visit Provider Registered Nurse
DX: I10 Essential (primary) hypertension (principal); Z13.1 Encounter for screening for diabetes mellitus
CPT/HCPCS: 36415; 80053; 80061; 83036; 85025

== ENCOUNTER 2024-04-29 08:12 | Outpatient (REF) | payer MEDICARE, MEDICAID, SELFPAY ==
[2024-04-29] MEDS: gadobutroL 10 ML VIAL IVPUSH (09:44)
== END 2024-04-29 08:13 | disposition home or self-care (01) ==
LOC: HO.MRI 08:12
PROVIDERS: PCP Registered Nurse; Visit Provider Registered Nurse
DX: M54.41 Lumbago with sciatica, right side (principal); M89.9 Disorder of bone, unspecified; G89.29 Other chronic pain
CPT/HCPCS: 72148; 72157; A9585

== ENCOUNTER 2024-05-31 08:37 | Outpatient (REF) | payer MEDICARE, MEDICAID, SELFPAY ==
[2024-05-31 10:19] LABS: Alanine Aminotransferase 30 U/L (0-40); Alkaline Phosphatase 84 U/L (39-117); Anion Gap 14 (12-20); Aspartate Amino Transferase 33 U/L (5-37); Bilirubin Total 0.7 mg/dL (0.0-1.0); Blood Urea Nitrogen 16 mg/dL (9-16); Calcium 9.2 mg/dL (8.4-10.2); Carbon Dioxide 26 mmol/L (22-29); Chloride 103 mmol/L (96-108); Estimated Glomerular Filt Rate > 60; Glucose Random 115 mg/dL (60-115); Potassium 4.1 mmol/L (3.3-5.1); Sodium 139 mmol/L (135-145); Total Protein 7.5 g/dL (6.5-8.0)
== END 2024-05-31 08:38 | disposition home or self-care (01) ==
LOC: HO.LAB 08:37
PROVIDERS: PCP Registered Nurse; Visit Provider Registered Nurse
DX: I10 Essential (primary) hypertension (principal)
CPT/HCPCS: 36415; 80053

== ENCOUNTER 2024-07-04 13:42 | Outpatient (REF) | payer MEDICARE, MEDICAID, SELFPAY ==
--- NOTE | ~2024-07-04 | MM_ITS ---
EXAMINATION: DXA BONE DENSITY AXIAL HISTORY: Estrogen deficiency TECHNIQUE: [employer] Dual energy absorptiometry (DEXA) of the lumbar spine, total left hip, and femoral neck was performed. COMPARISON: There are no prior studies for comparison. FINDINGS: The bone mineral density of the lumbar spine is 1.016 with a T-score of -1.9, and a Z-score of -2.3. The bone mineral density of the left total hip is 1.034 with a T-score of -0.5, and a Z-score of -0.5. The bone mineral density of the left femoral neck is 1.026 with a T-score of -0.3, and a Z-score of 0.1. FRACTURE RISK: The FRAX index suggests a risk of major osteoporotic fracture of 4.9%, and of hip fracture 0.3%. MM/XR DEXA axial skeleton IMPRESSION: Based on bone mineral density, and according to World Health Organization (WHO) criteria, the diagnosis is consistent with osteopenia. All bone density values are in grams per centimeter squared (g/cm2). Statistically, 68% of repeat scans fall within 1 SD (+/- 0.010 g/cm2 for AP spine L1-L4) and 1 SD (+/- 0.012 g/cm2 for femur total) FRAX is a trademark of the [employer]'s [facility] Metabolic Bone Disease, a World Health Organization (WHO) Collaborating Center. Electronically signed by: Garrick Murry MD 07/04/2024 03:15 PM [facility]
--- OUTSIDE RECORDS SUMMARY | 2024-07-04 16:09 | XMS_ITS | Clinical Summary ---
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 [place] 0.1 mL by intranasal route in one nostril may repeat dose every 2-3 minutes as needed alternating nostrils with each dose. 019 Active Blood Pressure kit Active cloNIDine (Catapres) 0.1 MG tablet TAKE 1 TABLET BY MOUTH TWICE DAILY NEEDED FOR AGITATION 023 Active escitalopram (Lexapro) 5 MG tablet Take 5 mg by mouth in the morning. 023 Active traZODone (Desyrel) 150 MG tablet TAKE 1 AND 1/2 TABLETS BY MOUTH AT BEDTIME NEEDED FOR SLEEP 023 Active chlorthalidone (Hygroton) 25 MG tablet Take 1 tablet (25 mg) by mouth in the morning. 90 tablet 023 Active atorvastatin (Lipitor) 20 MG tabletIndications :Mixed hyperlipidemia Take 1 tablet (20 mg) by mouth at bedtime. 90 tablet 3 023 Active famotidine (Pepcid) 20 MG tabletIndications :Left upper quadrant abdominal pain Take 1 tablet (20 mg) by mouth 2 times daily. 60 tablet 11 024 2024 Active Multiple Vitamin (Multivitamin) tablet TAKE 1 TABLET BY MOUTH EVERYDAY AT NOON 90 tablet 3 024 Active thiamine (Vitamin B-1) 100 MG tablet TAKE 1 TABLET BY MOUTH EVERYDAY AT NOON 90 tablet 3 Active lidocaine (Lidoderm) 5 % patchIndications: Chronic bilateral low back pain with right-sided sciatica Apply topically to affected areas. Leave on for up to 12 hours 30 patch 1 Active ibuprofen 600 MG tabletIndications :Chronic bilateral low back pain with right-sided sciatica Take 1 tablet (600 mg) by mouth every 6 (six) hours if needed for mild pain. 30 tablet Active omeprazole (PriLOSEC) [address] capsuleIndication s:Left upper quadrant abdominal pain TAKE 1 CAPSULE BY MOUTH TWICE DAILY 180 capsule 3 Active metFORMIN XR (Glucophage-XR) 500 MG 24 hr tabletIndications :Metabolic syndrome Take 1 tablet (500 mg) by mouth 2 times daily. Do not crush, chew, or split. 60 tablet 11 024 2024 Active olmesartan (Benicar) 40 MG tabletIndications :Essential hypertension Take 1 tablet (40 mg) by mouth Once per day. 30 tablet 11 024 2024 Active Suboxone 8-2 MG SL filmIndications:O pioid dependence, uncomplicated (CMS/HCC) Place 3 Film under the tongue Once per day for 28 days. Do not start before June 26, 2024. 84 Film 025 2024 Active Suboxone 8-2 MG SL filmIndications:O pioid dependence, uncomplicated (CMS/HCC) Place 3 Film under the tongue Once per day for 28 days. Do not start before May 29, 2024. 84 Film 024 2024 Discontinued(R eorder (will not trigger notification to Pharmacy)) Active Problems Problem Noted Date Diagnosed Date Metabolic syndrome 05/23/2024 Elevated liver enzymes 03/31/2024 Tobacco use 07/05/2023 Assessment & Plan (07/05/2023 9:23 PM EST): ?? Trying to taper on his own ?? Declines referral to pharmacy for cessation Mixed hyperlipidemia 12/16/2022 Overview (12/16/2022): ?? ASCVD risk 14% ?? Atorvastatin 10mg daily Assessment & Plan (04/04/2023 9:18 PM EDT): ?? Tolerating atorvastatin well ?? INCREASE to 20mg daily ?? Repeat liver enzymes 4 weeks Assessment & Plan (12/16/2022 11:02 AM EDT): Liver enzymes elevated Will hold off on increasing statin until further liver eval completed Anxiety 12/16/2022 Overview (12/16/2022): ?? Followed by therapy and psychiatry at [facility] ?? Escitalopram and clonidine Essential hypertension 10/11/2018 Overview (01/10/2024): Chlorthalidone 25mg Olemsartan 20mg Maintenance: BMP: 10/2022 Lipid Panel: 10/2022 ASCVD Risk: 14.1% - Aerobic exercise to reduce BP. Initial goal of 30 min walk 3-5x/week. Increase as tolerated. - low-sodium diet (goal: <2g/day) and heart healthy diet such as DASH to reduce BP and prevent ASCVD. - Home BP monitoring 1-2 x day with goal of <140/90. - Seek immediate medical attention for chest pain, palpitations, SOB, syncope, or sudden changes in mental status. - Do not change or discontinue current prescriptions without first consulting health care provider Assessment & Plan (07/05/2023 9:20 PM EST): ?? BP elevated in office ?? Reports home readings well controlled ?? Will continue to monitor ?? Contact HC if 3 or more readings >140/90 Assessment & Plan (04/04/2023 9:28 PM EDT): ?? START olmesartan 5mg daily. Reviewed administration, risks, side effects ?? Assessment & Plan (12/16/2022 11:01 AM EDT): BP elevated in office Pt did not take medication today Continue current regimen. Continue to monitor Vitamin D deficiency 10/11/2018 Moderate alcohol dependence 05/09/2018 Overview (03/27/2024): On thiamine and multivitamin supplement Sees Dr. Farooq at [facility] Nicotine dependence 05/09/2018 Opioid dependence, uncomplicated 05/09/2018 Overview (12/16/2022): ?? Suboxone through [facility] Resolved Problems Problem Noted Date Diagnosed Date Resolved Date Overweight 10/11/2018 12/16/2022 Elevated blood pressure reading 05/09/2018 12/16/2022 Overview (12/16/2022): ?? Chlorthalidone 25mg Maintenance: BMP: 10/2022 Lipid Panel: 10/2022 ASCVD Risk: 14.1%--will consider statin start pending liver eval EKG: Obtain baseline at f/u - Aerobic exercise to reduce BP. Initial goal of 30 min walk 3-5x/week. Increase as tolerated. - low-sodium diet (goal: <2g/day) and heart healthy diet such as DASH to reduce BP and prevent ASCVD. - Home BP monitoring 1-2 x day with goal of <140/90. - Seek immediate medical attention for chest pain, palpitations, SOB, syncope, or sudden changes in mental status. - Do not change or discontinue current prescriptions without first consulting health care provider Epidermoid cyst 05/09/2018 12/16/2022 Encounters Date Type Department Care Team Description 07/03/2024 9:00 AM EST Office Visit [facility] [address] [place] [phone] Vasquez Farooq MD Opioid dependence, uncomplicated (CMS/HCC) (Primary Dx) 07/03/2024 Travel 06/28/2024 Telephone [facility] [address] [place] [address] [phone] Josephine Green, CLAUDIA Results; Referral 06/26/2024 9:00 AM EST Office Visit [facility] [address] [place] [address] [phone] Vasquez Farooq MD Opioid dependence, uncomplicated (CMS/HCC) (Primary Dx) 06/26/2024 Orders Only [facility] [address] [place], [place] [phone] Ilion, Maricarmen, [facility] Age-related osteoporosis with current pathological fracture, initial encounter (Primary Dx); Age-related osteoporosis with current pathological fracture, vertebra(e), initial encounter for fracture (CMS/HCC); Lumbar nerve root compression 06/26/2024 Travel 06/21/2024 Refill [facility] [place] [address] Shayy Baer RN Opioid dependence, uncomplicated (CMS/HCC) 06/19/2024 9:00 AM EST Office Visit [address] [place] [address] Vasquez Farooq MD Opioid dependence, uncomplicated (CMS/HCC) (Primary Dx) 06/19/2024 Travel 06/06/2024 1:30 PM EST Clinical Support [address] [place] [place] [address] Sho Ramos RN Essential hypertension 06/06/2024 Travel 05/29/2024 9:00 AM EST Office Visit [address] [phone] Vasquez Farooq MD Opioid type dependence, continuous (CMS/HCC) (Primary Dx) 05/29/2024 Travel 05/28/2024 Refill [facility] [place] [address] Shayy Baer RN Opioid dependence, uncomplicated (CMS/HCC) 05/22/2024 11:00 AM EST Immunization [address] [place] [address] Nirmala Howe RN Encounter for immunization 05/22/2024 9:00 AM EST Office Visit [address] [phone] Vasquez Farooq MD Opioid dependence, uncomplicated (CMS/HCC) (Primary Dx) 05/22/2024 Travel 05/20/2024 1:00 PM EST Office Visit [facility] [place] [address] Maricarmen Winn FNP Essential hypertension (Primary Dx); Metabolic syndrome; Lesion of thoracic vertebra 05/20/2024 Travel 05/08/2024 9:00 AM EST Clinical Support [facility] [place] [address] Sue Boyce RN Opioid dependence, uncomplicated (CMS/HCC); Moderate alcohol dependence (CMS/HCC) 05/08/2024 Travel 05/01/2024 9:00 AM EST Office Visit [facility] [address] [place] [phone] Vasquez Farooq MD Opioid type dependence, continuous (CMS/HCC) (Primary Dx) 05/01/2024 Travel 04/25/2024 Refill [facility] [address] [place] [phone] Shayy Baer RN Opioid dependence, uncomplicated (CMS/HCC) 04/17/2024 9:00 AM EST Office Visit [facility] [address] [place] [phone] Vasquez Farooq MD Uncomplicated opioid dependence (CMS/HCC) (Primary Dx) 04/17/2024 Travel 04/03/2024 9:00 AM EDT Office Visit [address] [address] Vasquez Farooq MD Opioid type dependence, continuous (CMS/HCC) (Primary Dx) 04/03/2024 Travel from Last 3 Months Immunizations Name Administration Dates Next Due Hep A, Adult 12/20/2022 Hep B, adult 07/17/2007,03/23/2007,02/20/2007 Influenza injectable quadriv alent IIV4 with preservative 05/09/2018 Influenza injectable quadriv alent preservative free 07/02/2021 Influenza, seasonal, injecta ble, preservative free 05/22/2024 Moderna Covid-19 Vaccine 12+ 07/02/2021,10/17/19 21,09/18/2020 Pneumococcal Conjugate PCV 20 12/20/2022 TD (adult), 2 Lf tetanus tox oid, preservative free, adsorbed 02/20/2007 Tdap 12/20/2022 Social History Tobacco Use Types Packs/Day Years Used Date Smoking Tobacco: Every Day Cigarettes Smokeless Tobacco: Never Tobacco Cessation:Ready to Q uit: Not Asked; Counseling Given: Not Answered Alcohol Use Standard Drinks/Week Comments Yes 0 (1 standard drink = 0.6 oz pur e alcohol) beer and rum almost every day Depression Answer Date Recorded Patient Health Questionnaire-9 Score 0 03/27/2024 Patient Health Questionnaire-9 Score 0 03/27/2024 Last PHQ-9: Questionnaire Data Not on file 1 Housing Stability Answer Date Recorded What is your housing situation today? I have mickey salazar 03/19/[address] you li ve. Do you have problems with any of the following? None of the above 03/19/2024 Food Insecurity Answer Date Recorded Within the past 12 months, y ou worried that your food would run out before you got money to buy more: Never True 03/19/2024 Within the past 12 months,th e food you bought just didn't last and you didn't have enough money to get more: Never True 01/2024 Transportation Answer Date Recorded In the past 12 months, has l ack of transportation kept you from medical appts, meetings, work or from getting things needed for daily living? No 03/19/2024 Utilities Answer Date Recorded In the past 12 months, has t he electric, gas, oil or water company threatened to shut off services in your home? No 03/19/2024 Depression Answer Date Recorded Patient Health Questionnaire-2 Score 0 03/27/2024 Internet Access Answer Date Recorded Internet Access Q1 Yes 03/19/2024 Internet Access Q2 Not on file 03/19/2024 Sex and Gender Information Value Date Recorded Sex Assigned at Male 04/11/2022 10:19 AM EDT Legal Sex Male 10:19 AM EDT Gender Identity Male 04/11/2022 10:19 AM EDT Sexual Orientation Straight 04/11/2022 10 :19 AM EDT Last Filed Vital Signs Vital Sign Reading Time Taken Comments Blood Pressure 141/93 06/06/2024 1:41 PM EST Pulse 83 06/06/2024 1:40 PM EST Temperature 36.1 ??C (97 ??F) 05/20/2024 12:45 PM EST Respiratory Rate 20 06/06/2024 1:40 PM EST Oxygen Saturation 99% 06/06/2024 1:40 PM EST Inhaled Oxygen Concentration - - Weight 116 kg (255 lb 6.4 oz) 05/20/2024 12:45 P M EST Height 182.9 cm (6') 05/20/2024 12:45 PM EST Body Mass Index 34.64 05/20/2024 12:45 PM EST Plan of Treatment Upcoming Encounters Date Type Department Care Team (Late st Contact Info) Description 07/24/2024 9:00 AM EST Office Visit [facility] [address] [place] [phone] Vasquez Farooq MD [address] [place] [address] 08/21/2024 2:30 PM EDT Office Visit [facility] [address] [place] [address] Ilion, Maricarmen, [employer]SULT[employer] [address] [place] [address] Health Maintenance Due Date Last Done Comments CT Colonography 1965 FIT DNA/Cologuard 1965 FIT 1965 FOBT 1965 Sigmoidoscopy 1965 Alcohol/Substance Use Screening 1977 Zoster Vaccines (1 of 2) 2015 COVID-19 Vaccine ( season) 2024 07/02/2021, 10/16/2020, 09/18/2020 SDOH Screening 03/19/2025 03/19/2024 Depression Screening 03/27/2025 03/27/2024, 03/27/20 24 Tobacco Screening 05/23/2025 05/23/2024 Colonoscopy 08/06/2025 08/06/2015 Colorectal Cancer Screening 08/06/2025 Lipid Panel 01/02/2029 01/03/2024, 11/10, 07/15/2021, Additional history exists DTaP/Tdap/Td Vaccines (2 - Td or Tdap) 12/20/2032 12/20/2022, 02/20/2007 RSV Patients and Patients Aged 60 years or older (1 - 1-dose 75+ series) 02/22/2040 Hepatitis B Vaccines Completed 07/17/2007, 03/23/2007, 02/20/2007 HIV Screening Completed 11/22/2022, 02/07/2020 Hepatitis C Screening Completed 12/12/2022 Hepatitis A Vaccines Aged Out 12/20/2022 No long er eligible based on patient's age to complete this topic Pneumococcal Vaccine: Pediatrics (0 to 5 Years) and At-Risk Patients (6 to 64 Years) Completed 12/20/2022 Influenza Vaccine Completed 05/22/2024, , 05/09/2018 HIB Vaccines Aged Out No longer eligi ble based on patient's age to complete this topic HPV Vaccines Aged Out No longer eligi ble based on patient's age to complete this topic IPV Vaccines Aged Out No longer eligi ble based on patient's age to complete this topic Meningococcal Vaccine Aged Out No neha cindy eligible based on patient's age to complete this topic RSV under 20 months Aged Out No longe r eligible based on patient's age to complete this topic Rotavirus Vaccines Aged Out No longer eligible based on patient's age to complete this topic Goals Goal Patient Goal Type Associated Problems Recent Progress Patient-Stated? Author Blood Pressure < 140/90 Blood Pressure 141/93( 024 1:41 PM EST) No Fallon Pizarro, Alexa Procedures Procedure Name Priority Date/Time Associated Diagnosis Comments BD DEXA AXIAL Routine 07/04/2024 1:50 PM EST Age-related osteoporosis with current pathological fracture, initial encounter Age-related osteoporosis with current pathological fracture, vertebra(e), initial encounter for fracture (CMS/HCC) POCT EMA-14 URINE DRUG SCREEN Routine 06/26/2024 9:20 AM EST Opioid dependence, uncomplicated (CMS/HCC) COMPREHENSIVE METABOLIC PANEL Routine 05/31/2024 8:45 AM EST Essential hypertension POCT EMA-14 URINE DRUG SCREEN Routine 05/29/2024 9:22 AM EST Opioid type dependence, continuous (CMS/HCC) POCT EMA-14 URINE DRUG SCREEN Routine 05/01/2024 9:19 AM EST Opioid type dependence, continuous (CMS/HCC) MR THORACIC SPINE W AND WO CONTRAST Routine 04/29/2024 9:00 AM EST Lesion of thoracic vertebra MR LUMBAR SPINE WO CONTRAST Routine 04/29/2024 8:39 AM EST Chronic bilateral low back pain with right-sided sciatica POCT EMA-14 URINE DRUG SCREEN Routine 04/03/2024 9:10 AM EDT Opioid type dependence, continuous (CMS/HCC) LIPID PANEL, STANDARD Routine 01/03/2024 12:08 PM EDT Essential hypertension HEPATITIS PANEL, GENERAL Routine 12/12/2022 10:09 AM EDT Mixed hyperlipidemia HIV ANTIBODY/ANTIGEN ([place] DPH) Routine 11/22/2022 8:52 AM EDT Mixed hyperlipidemia HM COLONOSCOPY Routine 08/06/2015 from Last 3 Months or Most Recently Relevant to Health Maintenance Results * BD DEXA Axial (07/04/2024 1:50 PM EST) Anatomical Region Laterality Modality Body Radiographic Doris ging 07/04/2024 1:50 PM EST Narrative 07/04/2024 3:17 PM EST ? [facility] ? [address] ?[place] [address] ? Mammography Report ? Signed ? Patient: Kieran Palomo ?MR#: M ?? [id number] ? : 1965 ?Acct:[id number] ? Age/Sex: 59 / M ?ADM Date: 01/23/25 ? Loc: HO.MAMMO ? Attending Dr: Maricarmen Ilion DIGITAL MARKETING CONSULTANT ? Ordering Physician: Tatum,Maricarmen DIGITAL MARKETING CONSULTANT ?Results: ? Date of Service: 07/04/24 ?Follow Up: ? Procedure(s): XR DEXA axial skeleton ?? Accession Number(s): [id number] ? cc: Tatum,Maricarmen DIGITAL MARKETING CONSULTANT ? EXAMINATION: ??DXA BONE DENSITY AXIAL ? HISTORY: ??Estrogen deficiency ? TECHNIQUE: [employer] Dual energy absorptiometry (DEXA) ?? of the lumbar spine, total left hip, and femoral neck was performed. ? COMPARISON: ??There are no prior studies for comparison. ? FINDINGS: ? The bone mineral density of the lumbar spine is 1.016 with a T-score of ?? -1.9, and a Z-score of -2.3. ? The bone mineral density of the left total hip is 1.034 with a T-score ?? of -0.5, and a Z-score of -0.5. ? The bone mineral density of the left femoral neck is 1.026 with a ?? T-score of -0.3, and a Z-score of 0.1. ? FRACTURE RISK: ?? The FRAX index suggests a risk of major osteoporotic fracture of 4.9%, ?? and of hip fracture 0.3%. ? MM/XR DEXA axial skeleton ?? IMPRESSION: ?? Based on bone mineral density, and according to World Health ?? Organization (WHO) criteria, the diagnosis is consistent with ?? osteopenia. ? All bone density values are in grams per centimeter squared (g/cm2). ?? Statistically, 68% of repeat scans fall within 1 SD (+/- 0.010 g/cm2 ?? for AP spine L1-L4) and 1 SD (+/- 0.012 g/cm2 for femur total) ?? FRAX is a trademark of the [employer]'s ?? [place] for Metabolic Bone Disease, a World Health Organization (WHO) ?? Collaborating Center. ? Electronically signed by: ??Garrick Murry MD ??07/04/2024 03:15 PM EST ?? RP ? Dictated By: ?Garrick Murry MD ? Signed By: ?<Electronically signed by Garrick Murry MD in OV> ?07/04/24 1515 ? DD/ 1350 ? TD/TT: 07/04/24 1422 ? Patient Support Associate: ? Procedure Note Donotuseinterpreter, Image - 07/04/2024 Eri [facility] [address] [place], [place] [address] Mammography Report Signed Patient: Kieran PalomoMR#: M [id number] : 1965Acct:[id number] Age/Sex: 59 / MADM Date: 07/04/24 Loc: TRA[facility] Attending Dr: Maricarmen Winn DIGITAL MARKETING CONSULTANT Ordering Physician: Maricarmen WinnPResults: Date of Service: 07/04/24Follow Up: Procedure(s): XR DEXA axial skeleton Accession Number(s): [id number] cc: Maricarmen Winn EXAMINATION: DXA BONE DENSITY AXIAL HISTORY: Estrogen deficiency TECHNIQUE: [employer] Dual energy absorptiometry (DEXA) of the lumbar spine, total left hip, and femoral neck was performed. COMPARISON: There are no prior studies for comparison. FINDINGS: The bone mineral density of the lumbar spine is 1.016 with a T-score of -1.9, and a Z-score of -2.3. The bone mineral density of the left total hip is 1.034 with a T-score of -0.5, and a Z-score of -0.5. The bone mineral density of the left femoral neck is 1.026 with a T-score of -0.3, and a Z-score of 0.1. FRACTURE RISK: The FRAX index suggests a risk of major osteoporotic fracture of 4.9%, and of hip fracture 0.3%. MM/XR DEXA axial skeleton IMPRESSION: Based on bone mineral density, and according to World Health Organization (WHO) criteria, the diagnosis is consistent with osteopenia. All bone density values are in grams per centimeter squared (g/cm2). Statistically, 68% of repeat scans fall within 1 SD (+/- 0.010 g/cm2 for AP spine L1-L4) and 1 SD (+/- 0.012 g/cm2 for femur total) FRAX is a trademark of the [employer] [place] for Metabolic Bone Disease, a World Health Organization (WHO) Collaborating Center. Electronically signed by: Garrick Murry MD 07/04/2024 03:15 PM EST RP Dictated By: Garrick Murry MD Signed By: <Electronically signed by Garrick Murry MD in OV> 07/04/24 1515 DD/ 1350 TD/TT: 07/04/24 1422 Patient Support Associate: [facility] IM DXA PROCEDURES Final Resu lt * POCT EMA-14 Urine Drug Screen (06/26/2024 9:20 AM EST) Only the most recent of4 resultswithin the time period is included. Pathologist [facility] THC Negative Cocaine Screen, Urine Negative Opiate Screen, Urine Negative Methamphetamine Screen Urine Negative Amphetamine Screen, Urine Negative Benzodiazepines Screen, Urine Negative Barbiturate Screen, Urine Negative Methadone Screen, Urine Negative Buprenophine Screen, Urine Positive TCA, Urine Negative MDMA Urine Negative ng/mL Oxycodone Screen, Urine Negative Phencyclidine (PCP), Urine Negative Propoxyphene, Urine Negative Fentanyl, Urine Negative Urine Urine specimen obtained by clean catch procedure / Unknown 06/26/2024 9:20 AM EST Vasquez Farooq MD POINT OF CARE TEST ENTER/EDIT OR DERABLES Final Result * Comprehensive Metabolic Panel (05/31/2024 8:45 AM EST) Sodium 139 135 - 145 mmol/L [facility] Potassium 4.1 3.3 - 5.1 mmol/L [facility] Chloride 103 96 - 108 mmol/L [facility] Carbon Dioxide 26 22 - 29 mmol/L [facility] Anion Gap 14 12 - 20 [facility] Urea Nitrogen (BUN) 16 9 - 16 mg/dL [facility] Creatinine, Serum 0.79 0.5 - 1.4 mg/dL [facility] Estimated Glomerular Filt Rate >60 [facility] Comment:Chronic Kidney Disea se: Estimated GFR < 60 mL/min/[id number] Kidney Disease: Estimated GFR < 15 mL/min/1.73m2 Glucose 115 60 - 115 mg/dL [facility] Calcium 9.2 8.4 - 10.2 mg/dL [facility] Bilirubin, Total 0.7 0.0 - 1.0 mg/dL [facility] Aspartate Amino Transferase 33 5 - 37 U/L [facility] Alanine Aminotransferase 30 0 - 40 U/L [facility] Total Protein 7.5 6.5 - 8.0 g/dL [facility] Albumin Level 4.0 3.5 - 5.0 g/dL [facility] Alkaline Phosphatase 84 39 - 117 U/L [facility] Blood Venous blood specimen / Unknown 05/31/2024 8:45 AM EST 05/31/2024 8:48 AM EST [facility] D[employer]ITAL MARKETING CONSULTANT LAB BLOOD ORDERABLES Final Re sult [facility] [address] [place] [address] [phone] * MR Thoracic Spine w/ and w/o Contrast (04/29/2024 9:00 AM EST) Anatomical Region Laterality Modality Spine, T-spine Magnetic Resonan ce 04/29/2024 9:00 AM EST Narrative 06/21/2024 11:40 AM EST ? [facility] ?[address] ?[place] [address] ? Magnetic Resonance Report ? Signed ? Patient: Wells Umang,Kieran ?MR#: M ?? [id number] ? : 1965 ?Acct:[id number] ? Age/Sex: 59 / M ?ADM Date: 04/29/24 ? Loc: HO.MRI ? Attending Dr: Maricarmen GUILLEN ? Ordering Physician: Maricarmen Winn ?? Date of Service: 04/29/24 ?? Procedure(s): MR thoracic spine wo/w con ?? Accession Number(s): [id number] ? cc: Maricarmen Winn ? EXAMINATION: ?? MR thoracic spine with and without contrast ?? MRI lumbar spine without contrast ? INDICATION: ?? Mid and low back pain ? COMPARISON: ?? MR lumbar spine on 07/16/2021 ? TECHNIQUE: ?? Multiplanar multisequence MR imaging of the thoracic obtained without ?? and following the administration of 10 mL of Gadavist without ?? complication. Images of the lumbar spine were also obtained without ?? administration of intravenous contrast. ? FINDINGS: ? Thoracic spine: ?? Mild levocurvature of the mid thoracic spine. Preservation of the ?? normal lumbar lordosis. No listhesis. Patchy edema and enhancement ?? involving the T3 inferior endplate and to a lesser extent the T4 ?? superior endplate anteriorly. No other site of abnormal bone marrow ?? signal or enhancement. The vertebral body heights are preserved. ?? Multilevel disc desiccation without significant disc height loss. ?? Multilevel endplate osteophytosis. ? The visualized spinal cord is normal in caliber. No abnormal cord ?? signal. ? There is no significant disc herniation, spinal canal stenosis, or ?? neural foraminal narrowing throughout the thoracic spine. ? Lumbar spine: ?? Preservation of the normal lumbar lordosis. No listhesis. Diffusely ?? heterogeneous bone marrow signal is degenerative. Chronic compression ?? fracture deformity of L4, unchanged. The remaining vertebral body ?? heights are preserved. Multilevel disc desiccation with moderate disc ?? height loss at L4-5. Multilevel endplate osteophytosis. Schmorl's nodes ?? at L3 inferior endplate posteriorly as well as L4 superior and inferior ?? endplates, acute to subacute at L3. ? The visualized spinal cord is normal in caliber. No abnormal cord ?? signal. The conus medullaris terminates at T12-L1. ? T12-L1: Bilateral facet arthrosis. No significant spinal canal or ?? neural foraminal narrowing. ? L1-2: Bilateral facet arthrosis. No significant spinal canal or neural ?? foraminal narrowing. ? L2-3: Shallow right foraminal disc bulge and bilateral facet arthrosis. ?? No significant spinal canal or neural foraminal narrowing. ? L3-4: Diffuse disc bulge and bilateral facet arthrosis. No significant ?? spinal canal stenosis. Mild to moderate left and mild right neural ?? foraminal narrowing, unchanged from prior with the disc abutting the ?? exiting L3 nerve roots bilaterally. ? L4-5: Diffuse disc bulge and bilateral facet arthrosis. Mild spinal ?? canal stenosis, unchanged. Severe right and mild left neural foraminal ?? narrowing, unchanged with impingement of the right exiting L4 nerve ?? roots. The disc also abuts the exiting nerve roots on the left. ? L5-S1: Bilateral facet arthrosis. No significant spinal canal or neural ?? foraminal narrowing. ? The paravertebral soft tissues are unremarkable. The imaged ?? intrathoracic, intra-abdominal, intrapelvic structures are grossly ?? within normal limits. ? MR/MR thoracic spine wo/w con ?? IMPRESSION: ?? -Patchy edema and enhancement involving the T3 inferior endplate and to ?? a lesser extent the T4 superior endplate anteriorly. Findings are ?? favored to represent acute to subacute degenerative endplate changes. ? -Chronic compression fracture deformity of L4. ? -Multilevel lumbar spondylosis as described above, not significantly ?? changed from prior MRI lumbar spine on 07/16/2021. There is mild spinal ?? canal stenosis at L4-L5 and severe right neural foraminal narrowing ?? with impingement of the right exiting L4 nerve roots. ? Electronically signed by: ??Tom Husain MD ??06/21/2024 11:37 AM EST RP ? Dictated By: ?Tom Husain MD ? Signed By: ?<Electronically signed by Tom Husain MD in OV> ? /04/05 1137 ? DD/DT: 18/24 0900 ? TD/TT: 18/24 0921 ? Patient Support Associate: ? Procedure Note Donotuseinterpreter, Image - 06/21/[address] [address] Magnetic Resonance Report Signed Patient: Kieran Palomo#: M [id number] : 1965Acct:[id number] Age/Sex: 59 / MADM Date: 04/29/24 Loc: HO.MRI Attending Dr: Maricarmen GUILLEN Ordering Physician: Maricarmen Winn Date of Service: 04/29/24 Procedure(s): MR thoracic spine wo/w con Accession Number(s): [id number] cc: Maricarmen Winn EXAMINATION: MR thoracic spine with and without contrast MRI lumbar spine without contrast INDICATION: Mid and low back pain COMPARISON: MR lumbar spine on 07/16/2021 TECHNIQUE: Multiplanar multisequence MR imaging of the thoracic obtained without and following the administration of 10 mL of Gadavist without complication. Images of the lumbar spine were also obtained without administration of intravenous contrast. FINDINGS: Thoracic spine: Mild levocurvature of the mid thoracic spine. Preservation of the normal lumbar lordosis. No listhesis. Patchy edema and enhancement involving the T3 inferior endplate and to a lesser extent the T4 superior endplate anteriorly. No other site of abnormal bone marrow signal or enhancement. The vertebral body heights are preserved. Multilevel disc desiccation without significant disc height loss. Multilevel endplate osteophytosis. The visualized spinal cord is normal in caliber. No abnormal cord signal. There is no significant disc herniation, spinal canal stenosis, or neural foraminal narrowing throughout the thoracic spine. Lumbar spine: Preservation of the normal lumbar lordosis. No listhesis. Diffusely heterogeneous bone marrow signal is degenerative. Chronic compression fracture deformity of L4, unchanged. The remaining vertebral body heights are preserved. Multilevel disc desiccation with moderate disc height loss at L4-5. Multilevel endplate osteophytosis. Schmorl's nodes at L3 inferior endplate posteriorly as well as L4 superior and inferior endplates, acute to subacute at L3. The visualized spinal cord is normal in caliber. No abnormal cord signal. The conus medullaris terminates at T12-L1. T12-L1: Bilateral facet arthrosis. No significant spinal canal or neural foraminal narrowing. L1-2: Bilateral facet arthrosis. No significant spinal canal or neural foraminal narrowing. L2-3: Shallow right foraminal disc bulge and bilateral facet arthrosis. No significant spinal canal or neural foraminal narrowing. L3-4: Diffuse disc bulge and bilateral facet arthrosis. No significant spinal canal stenosis. Mild to moderate left and mild right neural foraminal narrowing, unchanged from prior with the disc abutting the exiting L3 nerve roots bilaterally. L4-5: Diffuse disc bulge and bilateral facet arthrosis. Mild spinal canal stenosis, unchanged. Severe right and mild left neural foraminal narrowing, unchanged with impingement of the right exiting L4 nerve roots. The disc also abuts the exiting nerve roots on the left. L5-S1: Bilateral facet arthrosis. No significant spinal canal or neural foraminal narrowing. The paravertebral soft tissues are unremarkable. The imaged intrathoracic, intra-abdominal, intrapelvic structures are grossly within normal limits. MR/MR thoracic spine wo/w con IMPRESSION: -Patchy edema and enhancement involving the T3 inferior endplate and to a lesser extent the T4 superior endplate anteriorly. Findings are favored to represent acute to subacute degenerative endplate changes. -Chronic compression fracture deformity of L4. -Multilevel lumbar spondylosis as described above, not significantly changed from prior MRI lumbar spine on 07/16/2021. There is mild spinal canal stenosis at L4-L5 and severe right neural foraminal narrowing with impingement of the right exiting L4 nerve roots. Electronically signed by: Tom Husain MD 06/21/2024 11:37 AM EST Dictated By: Tom Husain MD Signed By: <Electronically signed by Tom Husain MD in OV> 06/21/24 1137 DD/ 09 TD/TT: 04/29/24 09 Patient Support Associate: [facility] IM MRI PROCEDURES Final Resu lt * MR Lumbar Spine w/o Contrast (04/29/2024 8:39 AM EST) Anatomical Region Laterality Modality Spine, L-spine Magnetic Resonan ce 04/29/2024 8:39 AM EST Narrative 06/21/2024 11:40 AM EST ? [facility] ?[address] ?[place] [address] ? Magnetic Resonance Report ? Signed ? Patient: Wells Umang,Kieran ?MR#: M ?? [id number] ? : 1965 ?Acct:[id number] ? Age/Sex: 59 / M ?ADM Date: 04/29/24 ? Loc: HO.MRI ? Attending Dr: Maricarmen GUILLEN ? Ordering Physician: Maricarmen Winn ?? Date of Service: 04/29/24 ?? Procedure(s): MR lumbar spine wo con ?? Accession Number(s): [id number] ? cc: Maricarmen Winn ? EXAMINATION: ?? MR thoracic spine with and without contrast ?? MRI lumbar spine without contrast ? INDICATION: ?? Mid and low back pain ? COMPARISON: ?? MR lumbar spine on 07/16/2021 ? TECHNIQUE: ?? Multiplanar multisequence MR imaging of the thoracic obtained without ?? and following the administration of 10 mL of Gadavist without ?? complication. Images of the lumbar spine were also obtained without ?? administration of intravenous contrast. ? FINDINGS: ? Thoracic spine: ?? Mild levocurvature of the mid thoracic spine. Preservation of the ?? normal lumbar lordosis. No listhesis. Patchy edema and enhancement ?? involving the T3 inferior endplate and to a lesser extent the T4 ?? superior endplate anteriorly. No other site of abnormal bone marrow ?? signal or enhancement. The vertebral body heights are preserved. ?? Multilevel disc desiccation without significant disc height loss. ?? Multilevel endplate osteophytosis. ? The visualized spinal cord is normal in caliber. No abnormal cord ?? signal. ? There is no significant disc herniation, spinal canal stenosis, or ?? neural foraminal narrowing throughout the thoracic spine. ? Lumbar spine: ?? Preservation of the normal lumbar lordosis. No listhesis. Diffusely ?? heterogeneous bone marrow signal is degenerative. Chronic compression ?? fracture deformity of L4, unchanged. The remaining vertebral body ?? heights are preserved. Multilevel disc desiccation with moderate disc ?? height loss at L4-5. Multilevel endplate osteophytosis. Schmorl's nodes ?? at L3 inferior endplate posteriorly as well as L4 superior and inferior ?? endplates, acute to subacute at L3. ? The visualized spinal cord is normal in caliber. No abnormal cord ?? signal. The conus medullaris terminates at T12-L1. ? T12-L1: Bilateral facet arthrosis. No significant spinal canal or ?? neural foraminal narrowing. ? L1-2: Bilateral facet arthrosis. No significant spinal canal or neural ?? foraminal narrowing. ? L2-3: Shallow right foraminal disc bulge and bilateral facet arthrosis. ?? No significant spinal canal or neural foraminal narrowing. ? L3-4: Diffuse disc bulge and bilateral facet arthrosis. No significant ?? spinal canal stenosis. Mild to moderate left and mild right neural ?? foraminal narrowing, unchanged from prior with the disc abutting the ?? exiting L3 nerve roots bilaterally. ? L4-5: Diffuse disc bulge and bilateral facet arthrosis. Mild spinal ?? canal stenosis, unchanged. Severe right and mild left neural foraminal ?? narrowing, unchanged with impingement of the right exiting L4 nerve ?? roots. The disc also abuts the exiting nerve roots on the left. ? L5-S1: Bilateral facet arthrosis. No significant spinal canal or neural ?? foraminal narrowing. ? The paravertebral soft tissues are unremarkable. The imaged ?? intrathoracic, intra-abdominal, intrapelvic structures are grossly ?? within normal limits. ? MR/MR lumbar spine wo con ?? IMPRESSION: ?? -Patchy edema and enhancement involving the T3 inferior endplate and to ?? a lesser extent the T4 superior endplate anteriorly. Findings are ?? favored to represent acute to subacute degenerative endplate changes. ? -Chronic compression fracture deformity of L4. ? -Multilevel lumbar spondylosis as described above, not significantly ?? changed from prior MRI lumbar spine on 07/16/2021. There is mild spinal ?? canal stenosis at L4-L5 and severe right neural foraminal narrowing ?? with impingement of the right exiting L4 nerve roots. ? Electronically signed by: ??Tom Husain MD ??06/21/2024 11:37 AM EST RP ? Dictated By: ?Tom uHsain MD ? Signed By: ?<Electronically signed by Tom Husain MD in OV> ? /04/057 ? DD/ 0839 ? TD/TT: 04/29/24 0847 ? Patient Support Associate: ? Procedure Note Donotgamainterpreter, Image - 06/21/2024 [place] [address] Magnetic Resonance Report Signed Patient: Kieran PalomoMR#: M [id number] : 1965Acct:[id number] Age/Sex: 59 / MADM Date: 04/29/24 Loc: HO.MRI Attending Dr: Marciarmen GUILLEN Ordering Physician: Maricarmen Winn Date of Service: 04/29/24 Procedure(s): MR lumbar spine wo con Accession Number(s): [id number] cc: Maricarmen Winn EXAMINATION: MR thoracic spine with and without contrast MRI lumbar spine without contrast INDICATION: Mid and low back pain COMPARISON: MR lumbar spine on 07/16/2021 TECHNIQUE: Multiplanar multisequence MR imaging of the thoracic obtained without and following the administration of 10 mL of Gadavist without complication. Images of the lumbar spine were also obtained without administration of intravenous contrast. FINDINGS: Thoracic spine: Mild levocurvature of the mid thoracic spine. Preservation of the normal lumbar lordosis. No listhesis. Patchy edema and enhancement involving the T3 inferior endplate and to a lesser extent the T4 superior endplate anteriorly. No other site of abnormal bone marrow signal or enhancement. The vertebral body heights are preserved. Multilevel disc desiccation without significant disc height loss. Multilevel endplate osteophytosis. The visualized spinal cord is normal in caliber. No abnormal cord signal. There is no significant disc herniation, spinal canal stenosis, or neural foraminal narrowing throughout the thoracic spine. Lumbar spine: Preservation of the normal lumbar lordosis. No listhesis. Diffusely heterogeneous bone marrow signal is degenerative. Chronic compression fracture deformity of L4, unchanged. The remaining vertebral body heights are preserved. Multilevel disc desiccation with moderate disc height loss at L4-5. Multilevel endplate osteophytosis. Schmorl's nodes at L3 inferior endplate posteriorly as well as L4 superior and inferior endplates, acute to subacute at L3. The visualized spinal cord is normal in caliber. No abnormal cord signal. The conus medullaris terminates at T12-L1. T12-L1: Bilateral facet arthrosis. No significant spinal canal or neural foraminal narrowing. L1-2: Bilateral facet arthrosis. No significant spinal canal or neural foraminal narrowing. L2-3: Shallow right foraminal disc bulge and bilateral facet arthrosis. No significant spinal canal or neural foraminal narrowing. L3-4: Diffuse disc bulge and bilateral facet arthrosis. No significant spinal canal stenosis. Mild to moderate left and mild right neural foraminal narrowing, unchanged from prior with the disc abutting the exiting L3 nerve roots bilaterally. L4-5: Diffuse disc bulge and bilateral facet arthrosis. Mild spinal canal stenosis, unchanged. Severe right and mild left neural foraminal narrowing, unchanged with impingement of the right exiting L4 nerve roots. The disc also abuts the exiting nerve roots on the left. L5-S1: Bilateral facet arthrosis. No significant spinal canal or neural foraminal narrowing. The paravertebral soft tissues are unremarkable. The imaged intrathoracic, intra-abdominal, intrapelvic structures are grossly within normal limits. MR/MR lumbar spine wo con IMPRESSION: -Patchy edema and enhancement involving the T3 inferior endplate and to a lesser extent the T4 superior endplate anteriorly. Findings are favored to represent acute to subacute degenerative endplate changes. -Chronic compression fracture deformity of L4. -Multilevel lumbar spondylosis as described above, not significantly changed from prior MRI lumbar spine on 07/16/2021. There is mild spinal canal stenosis at L4-L5 and severe right neural foraminal narrowing with impingement of the right exiting L4 nerve roots. Electronically signed by: Tom Husain MD 06/21/2024 11:37 AM EST Dictated By: Tom Husain MD Signed By: <Electronically signed by Tom Husain MD in OV> 06/21/24 1137 DD/ 0839 TD/TT: 04/29/24 0847 Patient Support Associate: [facility] IM MRI PROCEDURES Final Resu lt * (ABNORMAL) Lipid Panel, Standard (01/03/2024 12:08 PM EDT) Triglycerides 62 <150 mg/dL [facility] Comment:Desirable Triglyceri de: less than 150 mg/dLBorderline High Triglyceride 150-199 mg/dLHigh Triglyceride: 200-499 mg/dLVery High Triglyceride: greater than or equal to 5OO mg/dL Cholesterol 226(H) <200 mg/dL [facility] Comment:Desirable Cholestero l: less than 200 mg/dLBorderline High Cholesterol: 200-239 mg/dLHigh Cholesterol: greater than 239 mg/dL LDL Cholesterol Calculated 96 <100 mg/dL [facility] Comment:Desirable LDL: less than 100 mg/dLNear Optimal/Above Optimal LDL: 110- 129 mg/dLBorderline High LDL: 130-159 mg/dLHigh LDL: 160-189 mg/dLVery High LDL: greater than or equal to 190 mg/dL HDL Cholesterol 118 >40 mg/dL [facility] Comment:Desirable HDL: great er than 40 mg/dL Note: This HDL assay may give artificially low results in patients with liver disease. Blood Venous blood specimen / Unknown 01/03/2024 12:08 PM EDT 01/03/2024 12:08 PM EDT [facility] LAB BLOOD ORDERABLES Final Re sult [facility] [address] [place] [phone] * Hepatitis Panel, General (12/12/2022 10:09 AM EDT) Hepatitis A IgM Nonreactive Nonreactive [facility] Comment:IgM antibodies to DUVAL V not detected; does not exclude earlyacute or recovered HAV infection. ~Hepatitis B Surface Antibody REACTIVE Nonreactive [facility] Comment:REACTIVE: > 11.99 mI U/mL Hepatitis B Core Antibody Nonreactive Nonreactive [facility] Hepatitis C Antibody Nonreactive Nonreactive [facility] Comment:Antibodies to HCV no t detected; does not exclude early acuteHCV infection. Hepatitis B Surface Ag Negative Negative [facility] 12/12/2022 10:0 9 AM EDT 12/12/2022 10:09 AM EDT [facility] External Provider LAB BLO OD ORDERABLES Final Result Performing Organization Address [facility] Co de Phone Number [facility] [address] [place] [address] [phone] * HIV Ab/Ag (DANISHA TADEO) (11/22/2022 8:52 AM EDT) HIV AB/AG Nonreactive Nonreactive [facility] Comment:HIV-1 p24 Ag and/or HIV-1/HIV-2 Ab not detected.A test result that is nonreactive does not exclude thepossibility of exposure to or infection with HIV-1 and/orHIV-2. Nonreactive results in this assay for individualswith prior exposure to HIV-1 and/or HIV-2 may be due toantigen and antibody levels that are below the limit ofdetection of this assay.The [employer] Handling Supervisor HIV Ag/Ab Combo assay result andsupplemental assay results should be interpreted inconjunction with the patient's clinical presentation,history and other laboratory results. If the results areinconsistent with clinical evidence, additional testing issuggested to confirm the result. 11/22/2022 8:52 AM EDT 11/22/2022 8:53 AM EDT [facility] External Provider LAB BLO OD ORDERABLES Final Result Performing Organization Address [facility] Co de Phone Number [facility] [address] [place] [address] [phone] * Hm Colonoscopy (08/06/2015) Colonoscopy normal Narrative Nano Sandoval - 08/06/2015 Repeat in 10 years Historical Provider HEALTH MAINTENANCE Edited Result - Final from Last 3 Months or Most Recently Relevant to Health Maintenance Insurance [employer] MEDIC[employer] Care Teams Perforator Operator Oil Well Relationship Specialty Start Date End Date Maricarmen Winn FNP [address] [place] [phone] PCP - General Family Medicine 07/13/22
--- OUTSIDE RECORDS SUMMARY | 2024-07-04 16:09 | XMS_ITS | Encounter Summary ---
Author Organization [employer] Address [address] [place] [address] Care Team Providers Care Fabrics And Material Cutter Name Role Phone Maricarmen Winn MEDICAL APPLIANCE MAKER Primary Care Provider [phone] Reason for Visit * Reason Comments GBAT Encounter Details Date Type Department Care Team (Latest Contact Info) Description 07/03/2024 9:00 AM EST Office Visit [facility] [address], [place] [phone] Vasquez Farooq MD [address], [place] [phone] Opioid dependence, uncomplicated (CMS/HCC) (Primary Dx) Social History Tobacco Use Types Packs/Day Years Used Date Smoking Tobacco: Every Day Cigarettes Smokeless Tobacco: Never Alcohol Use Standard Drinks/Week Comments Yes 0 [...] Orientation Straight 04/11/2022 10 :19 AM EDT documented as of this encounter Progress Notes * Vasquez Farooq MD - 07/03/2024 9:00 AM EST Patient on current Suboxone dose of 24mg/6mg on a 3-week schedule. Patient has been in the program for 3 years 11 months. Induction date: 08/06/2020. LFTs done 04/18/2023. Patient enrolled in behavioral health services, therapist Gayle. DANISHA BAEZA reviewed by provider. Last PCP appt 06/30/2023. LAST GBAT VISIT 06/26/2024 UTOX: POS BUP NEG FOR FEN Patient presents for Group-Based Opioid Treatment for OUD Reviewed the group goals, expectations and policies Consented to the group treatment options Actively participated in the group discussion with the topic of: Forgiveness Following staff present at the visit: Physician, Industrial Waste Treatment Technician, Clinician, Team RN, and MedicalAssistant Opportunities provided to address individual medical/medication/BH concerns States doing well without cravings or relapse TODAY GBAT VISIT 07/03/2024 Patient presents for Group-Based Opioid Treatment for OUD Reviewed the group goals, expectations and policies Consented to the group treatment options Actively participated in the group discussion with the topic of: Values in Recovery Following staff present at the visit: Physician, Industrial Waste Treatment Technician, Clinician, Team RN, and MedicalAssistant Opportunities provided to address individual medical/medication/BH concerns States doing well without cravings or relapse Review of Systems Psychiatric/Behavioral: Negative for behavioral problems and dysphoric mood. The patient is not nervous/anxious. Physical Exam Constitutional: Appearance: Normal appearance. Pulmonary: Effort: Pulmonary effort is normal. Neurological: Mental Status: He is alert. Psychiatric: Mood and Affect: Mood normal. Behavior: Behavior normal. Kieran was seen today for gbat. Diagnoses and all orders for this visit: Opioid dependence, uncomplicated (CMS/HCC) (Primary) Patient presents for Group-Based Addiction Treatment of OUD Reviewed the group goals, expectations and policies Consented to the group treatment options Actively participated in the group discussed Future discussion topics reviewed Patient is tolerating current treatment of Buprenorphine Reviewed behavioral modification and accessing services Group counseling provided with a focus on support system, tools for achieving/maintaining recovery Reviewed barriers for these goals Discussed strategies to address when faced situations that may trigger use [employer] [facility] SOCIAL WORKER reviewed Following staff present at the visit: Physician, Team RN, Clinician, Industrial Waste Treatment Technician and Residential Pest Control Technician Follow up in 1 week for the next GBAT meeting This information has been disclosed to you from records protected by federal confidentiality rules (42 CFR Part 2). The federal rules prohibit you from making any further disclosure of information inthis record that identifies a patient as having or having had a substance use disorder either directly, by reference to publicly available information, or through verification of such identification by another person unless further disclosure is expressly permitted by the written consent of the individual whose information is being disclosed or as otherwise permitted by (see2.3.1). The federal rules restrict any use of the information to investigate or prosecute with regard to a crime any patient with a substance use disorder, except as provided at 2.12??(5) and 2.65. documented in this encounter Plan of Treatment Upcoming Encounters Date Type Department Care Team (Late st Contact Info) Description 07/24/2024 9:00 AM EST Office Visit [address] [address] Vasquez Farooq MD [address] [place] [phone] 08/21/2024 2:30 PM EDT Office Visit [address] [place] [address] Maricarmen Winn FNP [address] [place] [address] documented as of this encounter Goals Goal Patient Goal Type Associated Problems Recent Progress Patient-Stated? Author Blood Pressure < 140/90 Blood Pressure 141/93( 024 1:41 PM EST) Fallon Ordoñez, PharmD documented as of this encounter Visit Diagnoses Diagnosis Opioid dependence, uncomplicated (CMS/HCC)- Primary documented in this encounter Additional Health Concerns Assessment Noted Time PHQ-9 Depression Total Score: 0 03/27/20 24 2:26 PM EDT documented as of this encounter Care Teams Fabrics And Material Cutter Relationship Specialty Start Date End Date Maricarmen Winn FNP [address] [place] [phone] PCP - General Family Medicine 07/13/22 documented as of this encounter
--- OUTSIDE RECORDS SUMMARY | 2024-07-04 16:09 | XMS_ITS | Encounter Summary ---
Author Organization [facility] Address [address] [place] [address] [place], [place] [address] Care Team Providers Care Paper And Pulp Mill Operator Name Role Phone Maricarmen Winn Primary Care Provider [phone] Reason for Referral * Consultation (Routine) - Authorized Specialty Diagnoses / Procedures Referred By Elise arreola Referred To Contact Neurosurgery Diagnoses Lumbar nerve root compression Maricarmen Winn FNP [address] [place] [address] Phone: tel: fax: [facility] Referral ID Status Reason Start Date Expiration Date Visits Requested Visits Authorized [id number] Authorized Specialty Services Required 06/26/2024 06/26/2025 1 1 * Imaging (Routine) - Closed Specialty Diagnoses / Procedures Referred By Elise arreola Referred To Contact Radiology Diagnoses Age-related osteoporosis with current pathological fracture, initial encounter Age-related osteoporosis with current pathological fracture, vertebra(e), initial encounter for fracture ([facility]) Procedures BD DEXA Axial Maricarmen Winn FNP [address] [place] [address] Phone: tel: fax: [facility] [address] [place], [place] Phone: tel: fax: Referral ID Status Reason Start Date Expiration Date Visits Re quested Visits Authorized [id number] Closed 06/26/2024 06/26/2025 1 1 Encounter Details Date Type Department Care Team (Late st Contact Info) Description 06/26/2024 Orders Only [facility] [address] [place], [place] [phone] GillettMaricarmen, [facility] [address] [place] [address] Age-related osteoporosis with current pathological fracture, initial encounter (Primary Dx); Age-related osteoporosis with current pathological fracture, vertebra(e), initial encounter for fracture (CMS/HCC); Lumbar nerve root compression Social History Tobacco Use Types Packs/Day Years [...] AM EDT documented as of this encounter Plan of Treatment Upcoming Encounters Date Type Department Care Team (Late st Contact Info) Description 07/24/2024 9:00 AM EST Office Visit [facility] MEDICINE [address] [place] [address] Vasquez Farooq MD [address] [place] [address] 08/21/2024 2:30 PM EDT Office Visit [facility] MED[facility]INE [address] [place], [place] [phone] Gillett Maricarmen, SKILL LABOR [address] [place], [place] [phone] Scheduled Referrals Name Type Priority Associated Diagnoses Orde r Schedule Referral to Neurosurgery Outpatient Referral Routine Lumbar nerve root compression Expected: 06/26/2024 (Approximate), Expires: 06/26/2025 documented as of this encounter Goals Goal Patient Goal Type Associated Problems Recent Progress Patient-Stated? Author Blood Pressure < 140/90 Blood Pressure 141/93( 024 1:41 PM EST) No Fallon Pizarro, PharmD documented as of this encounter Procedures Procedure Name Priority Date/Time Associated Diagnosis Comments BD DEXA AXIAL Routine 07/04/2024 1:50 PM EST Age-related osteoporosis with current pathological fracture, initial encounter Age-related osteoporosis with current pathological fracture, vertebra(e), initial encounter for fracture ([facility]) documented in this encounter Results * BD DEXA Axial (07/04/2024 1:50 PM EST) Anatomical Region Laterality Modality Body Radiographic Doris ging 07/04/2024 1:50 PM EST Narrative 07/04/2024 3:17 PM EST ? [facility] ? [address] ?[place] [address] ? Mammography Report ? Signed ? Patient: Wells Umnag,Kieran ?MR#: [id number] ?? [id number] ? : 1965 ?Acct:[id number] ? Age/Sex: 59 / M ?ADM Date: 07/04/24 ? Loc: HO.MAMMO ? Attending Dr: Maricarmen Winn SKILL LABOR ? Ordering Physician: Maricarmen Winn SKILL LABOR ?Results: ? Date of Service: 07/04/24 ?Follow Up: ? Procedure(s): XR DEXA axial skeleton ?? Accession Number(s): [id number] ? cc: Maricarmen Winn SKILL LABOR ? EXAMINATION: ??DXA BONE DENSITY AXIAL ? HISTORY: ??Estrogen deficiency ? TECHNIQUE: [employer] Dual energy absorptiometry (DEXA) ?? of the [...] the [employer]'s ?? [place] [facility], a World Health Organization (WHO) ?? Collaborating Center. ? Electronically signed by: ??Garrick Murry MD ??07/04/2024 03:15 PM EST ?? RP ? Dictated By: ?Garrick Murry MD ? Signed By: ?<Electronically signed by Garrick Murry MD in OV> ?07/04/24 1515 ? DD/ 1350 ? TD/TT: 07/04/24 1422 ? Front End Loader Operator: ? Procedure Note Donarmaniter, Image - 07/04/2024 [facility] [address] [place] [address] Mammography Report Signed Patient: Kieran Palomo#: [id number] : 1965Acct:[id number] Age/Sex: 59 / MADM Date: 07/04/24 Loc: [facility] Attending Dr: Maricarmen Winn SKILL LABOR Ordering Physician: Maricarmen Winnults: Date of Service: 07/04/24Follow Up: Procedure(s): XR DEXA axial skeleton Accession Number(s): [id number] cc: Maricarmen Winn EXAMINATION: DXA BONE DENSITY AXIAL HISTORY: Estrogen deficiency TECHNIQUE: [employer] Dual energy absorptiometry (DEXA) of the lumbar [...] of the [employer] [place] [facility], a World Health Organization (WHO) Collaborating Center. Electronically signed by: Garrick Murry MD 07/04/2024 03:15 PM [facility] Dictated By: Garrick Murry MD Signed By: <Electronically signed by Garrick Murry MD in OV> 07/04/24 1515 DD/ 1350 TD/TT: 07/04/24 1422 Front End Loader Operator: [facility] SKILL LABOR IMG DXA PROCEDURES Final Resu lt documented in this encounter Visit Diagnoses Diagnosis Age-related osteoporosis with current pathological fracture, initial encounter- Primary Age-related osteoporosis with current pathological fracture, vertebra(e), initial encounter for fracture (CMS/HCC) Lumbar nerve root compression documented in this encounter Additional Health Concerns Assessment Noted Time PHQ-9 Depression Total Score: 0 03/27/20 24 2:26 PM EDT documented as of this encounter Care Teams Paper And Pulp Mill Operator Relationship Specialty Start Date End Date Maricarmen Winn FNP [address] [place] [address] PCP - General Family Medicine 07/13/22 documented as of this encounter
--- OUTSIDE RECORDS SUMMARY | 2024-07-04 16:09 | XMS_ITS | Encounter Summary ---
Author Organization [employer] Address [address] [facility] 7t [place] [address] Care Team Providers Care Reading Specialist Name Role Phone Maricarmen Winn TONGUE STITCHER Primary Care Provider [phone] Encounter Details Date Type Department Care Team (Latest Contact Info) Description 06/26/2024 Travel Social History Tobacco Use Types Packs/Day Years [...] Description 07/24/2024 9:00 AM EST Office Visit [facility] MEDICINE [address] [place] [address] Vasquez Farooq MD [address] [place] [address] [phone] 08/21/2024 2:30 PM EDT Office Visit [address] [address] Maricarmen Winn FNP [address] [place] [address] documented as of this encounter Goals Goal Patient Goal Type Associated Problems Recent Progress Patient-Stated? Author Blood Pressure < 140/90 Blood Pressure 141/93( 024 1:41 PM EST) No Fallon Pizarro, PharmD documented as of this encounter Visit Diagnoses Not on filedocumented in this encounter Additional Health Concerns Assessment Noted Time PHQ-9 Depression Total Score: 0 03/27/20 24 2:26 PM EDT documented as of this encounter Care Teams Reading Specialist Relationship Specialty Start Date End Date Maricarmen Winn FNP [address] [place] [address] PCP - General Family Medicine 07/13/22 documented as of this encounter
--- OUTSIDE RECORDS SUMMARY | 2024-07-04 16:09 | XMS_ITS | Encounter Summary ---
Author Organization [employer] Address [address] [facility] 7t [place] [address] Care Team Providers Care Seed Core Operator Name Role Phone Maricarmen Winn PLATER HELPER Primary Care Provider [phone] Reason for Visit * Reason Comments GBAT Encounter Details Date Type Department Care Team (Latest Contact Info) Description 06/26/2024 9:00 AM EST Office Visit [facility] MEDICINE [address] [place], [place] [phone] Vasquez Farooq MD [address] [place], [place] [phone] Opioid dependence, uncomplicated (CMS/HCC) (Primary Dx) Social [...] Progress Notes * Vasquez Farooq MD - 06/26/2024 9:00 AM EST Patient on current Suboxone dose of 24mg/6mg on a 3-week schedule. Patient has been in the program for 3 years 11 months. Induction date: 08/06/2020. LFTs done 04/18/2023. Patient enrolled in behavioral health services, therapist Gayle. DANISHA BAEZA reviewed by provider. Last PCP appt 06/30/2023. LAST GBAT VISIT 06/19/2024 Patient presents for Group-Based Opioid Treatment for OUD Reviewed the group goals, expectations and policies Consented to the group treatment options Actively participated in the group discussion with the topic of: Goals and Challenges for 2024 Following staff present at the visit: Physician, Ethnographer, Clinician, Team RN, and MedicalAssistant Opportunities provided to address individual medical/medication/BH concerns States doing well without cravings or relapse TODAY GBAT VISIT 06/26/2024 UTOX: POS BUP NEG FOR FEN Patient presents for Group-Based Opioid Treatment for OUD Reviewed the group goals, expectations and policies Consented to the group treatment options Actively participated in the group discussion with the topic of: Forgiveness Following staff present at the visit: Physician, Ethnographer, Clinician, Team RN, and MedicalAssistant Opportunities provided [...] this visit: Opioid dependence, uncomplicated (CMS/HCC) (Primary) - POCT EMA-14 Urine Drug Screen Patient presents for Group-Based Addiction Treatment of [...] faced situations that may trigger use Mass FOREST FIRE LOOKOUT reviewed Following staff present at the visit: Physician, Team RN, Clinician, Ethnographer and Vaccines Solutions Specialist Follow up in 1 week for the [...] Description 07/24/2024 9:00 AM EST Office Visit [facility] MEDICINE [address] [place] [address] Vasquez Farooq MD [address] [place] [address] 08/21/2024 2:30 PM EDT Office Visit [facility] MEDICINE [address] [place] [address] TatumMaricarmen carmonaMINDY [address] [place] [address] documented as of this encounter Goals Goal Patient Goal Type Associated Problems Recent Progress Patient-Stated? Author Blood Pressure < 140/90 Blood Pressure 141/93( 024 1:41 PM EST) No Fallon Pizarro, PharmD documented as of this encounter Procedures Procedure Name Priority Date/Time Associated Diagnosis Comments POCT EMA-14 URINE DRUG SCREEN Routine 06/26/2024 9:20 AM EST Opioid dependence, uncomplicated (CMS/HCC) documented in this encounter Results * POCT EMA-14 Urine Drug Screen (06/26/2024 9:20 AM EST) THC Negative Cocaine Screen, Urine Negative Opiate [...] CARE TEST ENTER/EDIT OR DERABLES Final Result documented in this encounter Visit Diagnoses Diagnosis Opioid dependence, uncomplicated (CMS/HCC)- Primary documented in this encounter Additional Health Concerns Assessment Noted Time PHQ-9 Depression Total Score: 0 03/27/20 24 2:26 PM EDT documented as of this encounter Care Teams Seed Core Operator Relationship Specialty Start Date End Date Maricarmen WinnMINDY [address] [place] [address] PCP - General Family Medicine 07/13/22 documented as of this encounter
--- OUTSIDE RECORDS SUMMARY | 2024-07-04 16:09 | XMS_ITS | Encounter Summary ---
Author Organization [employer] Address [address] [facility] 7t [place] [address] Care Team Providers Care Measuring Clerk Name Role Phone Maricarmen Winn DRAFTER CASTINGS Primary Care Provider [phone] Encounter Details Date Type Department Care Team (Latest Contact Info) Description 07/03/2024 Travel Social History Tobacco Use Types Packs/Day [...] Description 07/24/2024 9:00 AM EST Office Visit [facility] MEDICINE [address] [place] [address] Vasquez Farooq MD [address] [place] [phone] 08/21/2024 2:30 PM EDT Office Visit [address] [address] Maricarmen Winn FNP [address] [place] [address] documented as of this encounter Goals Goal [...] documented as of this encounter Care Teams Measuring Clerk Relationship Specialty Start Date End Date Maricarmen Winn FNP [address] [place] [address] PCP - General Family Medicine 07/13/22 documented as of this encounter
--- OUTSIDE RECORDS SUMMARY | 2024-07-04 16:09 | XMS_ITS | Encounter Summary ---
Author Organization [employer] Address [address] [facility] [address] [place] [address] Care Team Providers Care Machine Rebuilder Name Role Phone Maricarmen Winn SCREEN TENDER HELPER Primary Care Provider [phone] Reason for Visit * Reason Onset Date Comments Results 06/28/2024 Referral 06/28/2024 Encounter Details Date Type Department Care Team ([facility] st Contact Info) Description 06/28/2024 Telephone [facility] MEDICINE [address] [place], [place] [phone] Josephine Green RN Results; Referral Social History Tobacco Use Types Packs/Day Years [...] AM EDT documented as of this encounter Miscellaneous Notes * Telephone Encounter - Josephine Green RN - 06/28/2024 9:24 AM EST Telephone call to pt using vLeximmigration services officer #[id number]. Advised that MRI results showed compression fracture in the lower back which is relate to low bone density, advised him that PCP ordered DEXA scan to further evaluate bone density throughout the body. Also advised that MRI showed nerve rootcompression in his lower back so PCP made referral to neurosurgery at [facility]. Advised him that [facility] will reach out to schedule both appts in 1-2 weeks and letter will be sent out in the mail with information regarding the referrals. Pt verbalized understanding, no further questions. * Telephone Encounter - Josephine Green RN - 06/28/2024 9:12 AM EST ----- Message from [facility] sent at 06/26/2024 9:39 AM EST ----- Attempted to contact patient to review results. NO answer. LVM requesting call back. Please re attempt later this week and advise the following: - MRI shows compression fracture in lower back--this means he has low bone density. I'm ordering a DEXA scan for further eval - Significant nerve root compression in his low back as well--referral to neurosurgery at [facility] placed. Thank you! documented in this encounter Plan of Treatment Upcoming Encounters Date Type Department Care Team (Late st Contact Info) Description 07/24/2024 9:00 AM EST Office Visit [address] [address] Vasquez Farooq MD [address] [place] [address] 08/21/2024 2:30 PM EDT Office Visit [facility] [address] [place] [address] Maricarmen Winn FNP [address] [place] [address] documented as of this encounter Goals Goal [...] documented as of this encounter Care Teams Machine Rebuilder Relationship Specialty Start Date End Date Maricarmen Winn FNP [address] [place] [phone] PCP - General Family Medicine 07/13/22 documented as of this encounter
--- OUTSIDE RECORDS SUMMARY | 2024-07-04 16:09 | XMS_ITS | Encounter Summary ---
Author Organization [employer] Address [address] [facility] 7t [place] [address] Care Team Providers Care Filler Wiper Name Role Phone Maricarmen Winn RAIMANN MACHINE OPERATOR Primary Care Provider [phone] Reason for Visit * Reason Comments GBAT Encounter Details Date Type Department Care Team (Latest Contact Info) Description 06/19/2024 9:00 AM EST Office Visit [facility] MEDIC[facility] [address] [place], [place] [phone] Vasquez Farooq MD [address] [place], [place] [phone] Opioid dependence, uncomplicated (CMS/HCC) (Primary Dx) Social [...] Progress Notes * Vasquez Farooq MD - 06/19/2024 9:00 AM EST Patient on current Suboxone dose of 24mg/6mg on a 3-week schedule. Patient has been in the program for 3 years 10 months. Induction date: 08/06/2020. LFTs done 04/18/2023. Patient enrolled in behavioral health services, therapist Gayle. DANISHA BAEZA reviewed by provider. Last PCP appt 06/30/2023. LAST GBAT VISIT 05/29/2024 UTOX: POS BUP ONLY NEG FOR ALL OTHER SUBSTANCES Patient presents for Group-Based Opioid Treatment for OUD Reviewed the group goals, expectations and policies Consented to the group treatment options Actively participated in the group discussion with the topic of: Toolbox for Maintaining Sobriety Following staff present at the visit: Physician, Lavatory Attendant, Clinician, Team RN, and MedicalAssistant Opportunities provided to address individual medical/medication/BH concerns States doing well without cravings or relapse TODAY GBAT VISIT 06/19/2024 Patient presents for Group-Based Opioid Treatment for OUD Reviewed the group goals, expectations and policies Consented to the group treatment options Actively participated in the group discussion with the topic of: Goals and Challenges for 2024 Following staff present at the visit: Physician, Lavatory Attendant, Clinician, Team RN, and MedicalAssistant Opportunities provided [...] faced situations that may trigger use Mass KICKING MACHINE OPERATOR reviewed Following staff present at the visit: Physician, Team RN, Clinician, Lavatory Attendant and Spiral Gear Generator Follow up in 1 week for the [...] Description 07/24/2024 9:00 AM EST Office Visit [facility] [address] [place] [address] Vasquez Farooq MD [address] [place] [address] 08/21/2024 2:30 PM EDT Office Visit [facility] [address] [place] [address] Maricarmen Winn FNP [address] [place] [address] documented as of this encounter Goals Goal [...] documented as of this encounter Care Teams Filler Wiper Relationship Specialty Start Date End Date Maricarmen Winn FNP [address] [place] [address] PCP - General Family Medicine 07/13/22 documented as of this encounter
--- OUTSIDE RECORDS SUMMARY | 2024-07-04 16:09 | XMS_ITS | Encounter Summary ---
Author Organization [employer] Address [address] [facility] 7t [place] [address] Care Team Providers Care Marketing Automation Manager Name Role Phone Maricarmen Winn BOOK JACKET COVER MACHINE OPERATOR Primary Care Provider [phone] Reason for Visit * Reason Onset Date Comments Med Refill 06/21/2024 Encounter Details Date Type Department Care Team (Late st Contact Info) Description 06/21/2024 Refill [facility] MEDICINE [address] [place] [address] Shayy Baer RN Opioid dependence, uncomplicated (CMS/HCC) Social History Tobacco Use Types Packs/Day Years [...] Description 07/24/2024 9:00 AM EST Office Visit [facility] MEDICINE [address] [place] [phone] Vasquez Farooq MD [address] [place] [address] 08/21/2024 2:30 PM EDT Office Visit [address] [address] Maricarmen Winn FNP [address] [place] [address] documented as of this encounter Goals Goal Patient Goal Type Associated Problems Recent Progress Patient-Stated? Author Blood Pressure < 140/90 Blood Pressure 141/93( 024 1:41 PM EST) No Fallon Pizarro, PharmD documented as of this encounter Visit Diagnoses Diagnosis Opioid dependence, uncomplicated (CMS/HCC) documented in this encounter Additional Health Concerns Assessment Noted Time PHQ-9 Depression Total Score: 0 03/27/20 24 2:26 PM EDT documented as of this encounter Care Teams Marketing Automation Manager Relationship Specialty Start Date End Date Maricarmen Winn FNP [address] [place] [address] PCP - General Family Medicine 07/13/22 documented as of this encounter
--- OUTSIDE RECORDS SUMMARY | 2024-07-04 16:10 | XMS_ITS | Encounter Summary ---
Author Organization [employer] Address [address] [facility] 7t [place] [address] Care Team Providers Care Game Farm Supervisor Name Role Phone Maricarmen Winn TRAIN OPERATIONS MANAGER Primary Care Provider [phone] Encounter Details Date Type Department Care Team (Late st Contact Info) Description 04/28/2023 Abstract [facility] [address] [place], [place] [phone] Nano Sandoval Social History Tobacco Use Types Packs/Day Years Used Date Smoking Tobacco: Every Day Cigarettes Smokeless Tobacco: Never Alcohol Use Standard Drinks/Week Comments Yes 0 (1 standard drink = 0.6 oz pur e alcohol) Depression Answer Date Recorded Patient Health Questionnaire-9 Score 0 03/22/2023 Housing Stability Answer Date Recorded What is your housing situation today? I do not have housing (Staying with others, in a hotel, in a skilled nursing, living outside on the street, on a beach, in a car, or in a park 03/21/[address] you li ve. Do you have problems with any of the following? None of the above 03/21/2023 Food Insecurity Answer Date Recorded Within the past 12 months, y ou worried that your food would run out before you got money to buy more: Never True 03/29/2023 Within the past 12 months,th e food you bought just didn't last and you didn't have enough money to get more: Never True Transportation Answer Date Recorded In the past 12 months, has l ack of transportation kept you from medical appts, meetings, work or from getting things needed for daily living? No 03/29/2023 Utilities Answer Date Recorded In the past 12 months, has t he electric, gas, oil or water company threatened to shut off services in your home? No 03/29/2023 Depression Answer Date Recorded Patient Health Questionnaire-2 Score 0 03/22/2023 Sex and Gender Information Value Date Recorded Sex Assigned at Male 04/11/2022 10:19 AM EDT Legal Sex Male 10:19 AM EDT Gender Identity Male 04/11/2022 10:19 AM EDT Sexual Orientation Straight 04/11/2022 10 :19 AM EDT documented as of this encounter Plan of Treatment Upcoming Encounters Date Type Department Care Team (Late st Contact Info) Description 07/24/2024 9:00 AM EST Office Visit [facility] [address] [place] [address] Vasquez Farooq MD [address] [place] [address] 08/21/2024 2:30 PM EDT Office Visit [address] [address] Maricarmen Winn FNP [address] [place] [address] documented as of this encounter Goals Goal Patient Goal Type Associated Problems Recent Progress Patient-Stated? Author Blood Pressure < 140/90 Blood Pressure 141/93( 024 1:41 PM EST) No Fallon Pizarro, PharmD documented as of this encounter Visit Diagnoses Not on filedocumented in this encounter Additional Health Concerns Assessment Noted Time PHQ-9 Depression Total Score: 0 03/22/20 23 2:46 PM EDT documented as of this encounter Care Teams Game Farm Supervisor Relationship Specialty Start Date End Date Maricarmen Winn FNP [address] [place] [address] PCP - General Family Medicine 07/13/22 documented as of this encounter
--- OUTSIDE RECORDS SUMMARY | 2024-07-04 16:10 | XMS_ITS | Encounter Summary ---
Author Organization [employer] Address 75 [facility] 7t [place] [address] Care Team Providers Care Production Control Specialist Name Role Phone Maricarmen Winn NEPHROLOGY SOCIAL WORKER Primary Care Provider [phone] Encounter Details Date Type Department Care Team (Late st Contact Info) Description 08/01/2023 Orders Only [facility] [address] [place], [place] [phone] Shayy Baer RN Uncomplicated opioid dependence (CMS/HCC) (Primary Dx) Social History Tobacco Use [...] with others, in a hotel, in a detention, living outside on the street, on a [...] Description 07/24/2024 9:00 AM EST Office Visit [facility] [address] [place] [address] Vasquez Farooq MD [address] [place] [address] 08/21/2024 2:30 PM EDT Office Visit [facility] [address] [place] [address] Maricarmen Winn FNP [address] [place] [address] documented as of this encounter Goals Goal Patient Goal Type Associated Problems Recent Progress Patient-Stated? Author Blood Pressure < 140/90 Blood Pressure 141/93( 024 1:41 PM EST) No Fallon Pizarro, PharmD documented as of this encounter Visit Diagnoses Diagnosis Uncomplicated opioid dependence (CMS/HCC)- Primary documented in this encounter Additional Health Concerns Assessment Noted Time PHQ-9 Depression Total Score: 0 03/22/20 23 2:46 PM EDT documented as of this encounter Care Teams Production Control Specialist Relationship Specialty Start Date End Date Maricarmen Winn FNP [address] [place] [phone] PCP - General Family Medicine 07/13/22 documented as of this encounter
--- OUTSIDE RECORDS SUMMARY | 2024-07-04 16:10 | XMS_ITS | Encounter Summary ---
Author Organization [employer] Address 75 [facility] 7t [place] [address] Care Team Providers Care Protein Specialist Name Role Phone Maricarmen Winn COOK FISH EGGS Primary Care Provider [phone] Reason for Visit * Reason Comments Blood Pressure Check Encounter Details Date Type Department Care Team (Latest Contact Info) Description 06/06/2024 1:30 PM EST Clinical Support [facility] 230 [place] [address] Sho Ramos, RN [address] [place] [address] Essential hypertension Social History Tobacco Use Types Packs/Day Years [...] AM EDT documented as of this encounter Last Filed Vital Signs Vital Sign Reading Time Taken Comments Blood Pressure 141/93 06/06/2024 1:41 PM EST Pulse 83 06/06/2024 1:40 PM EST Temperature - - Respiratory Rate 20 06/06/2024 1:40 PM EST Oxygen Saturation 99% 06/06/2024 1:40 PM EST Inhaled Oxygen Concentration - - Weight - - Height - - Body Mass Index - - documented in this encounter Progress Notes * Sho Ramos RN - 06/06/2024 1:30 PM EST S: Pt here for BP check nurse visit. At last appointment 05/20/24, pt's BP noted to be 163/89. Recommendations made on that day were INCREASE olmesartan to 40mg daily and continue chlorthalidone 25mg daily. Pt is currently taking olmesartan 40mg and chlorthalidone 25mg. Today, pt denies any blurred vision, shortness of breath, chest pain, dizziness, or headaches. Pt reports compliance with BP medic ation regimen, confirms that BP medications were taken today around 8am. Patient reports some days he takes his medication in the morning and other days around noon time. Patient reports he smokes approx 6-7 cigarettes a day. Patient inquired on CMP results from 05/31/24, RN advised patient BW results were WNL. O: Left Arm BP 141/93 P85, Right Arm BP 137/85 P83, RR 20/min and SpO2 99%. Heart tones regular, lungs clear bilaterally, no edema noted, skin warm pink and dry. A: Compliance with BP medication regimen BP not at goal of <140/90 Reinforcement of Lifestyle modification including low sodium diet and exercise. P: Message sent to provider regarding BP findings. Orders at this time are to continue taking medications daily as Rx'd until advised differently be a provider. Pt advised to continue taking meds as directed and follow a low fat/sodium diet and exercise as tolerated. Pt to f/u with PCP as needed. Pt agrees with plan and verbalized understanding. Sho Ramos RN documented in this encounter Plan of Treatment Upcoming Encounters Date Type Department Care Team (Late st Contact Info) Description 07/24/2024 9:00 AM EST Office Visit [address] [address] Vasquez Farooq MD [address] [place] [address] 08/21/2024 2:30 PM EDT Office Visit [address] [address] Maricarmen Winn FNP [address] [place] [address] documented as of this encounter Goals Goal Patient Goal Type Associated Problems Recent Progress Patient-Stated? Author Blood Pressure < 140/90 Blood Pressure 141/93( 024 1:41 PM EST) No Fallon Pizarro, PharmD documented as of this encounter Visit Diagnoses Diagnosis Essential hypertension Unspecified essential hypertension documented in this encounter Additional Health Concerns Assessment Noted Time PHQ-9 Depression Total Score: 0 03/27/20 24 2:26 PM EDT documented as of this encounter Care Teams Protein Specialist Relationship Specialty Start Date End Date Maricarmen Winn FNP [address] [place] [address] PCP - General Family Medicine 07/13/22 documented as of this encounter
--- OUTSIDE RECORDS SUMMARY | 2024-07-04 16:10 | XMS_ITS | Encounter Summary ---
Author Organization [employer] Address 75 [facility] 7t [place] [address] Care Team Providers Care Bobbin Inspector Name Role Phone Maricarmen Winn VENEER STAPLER Primary Care Provider [phone] Encounter Details Date Type Department Care Team (Latest Contact Info) Description 06/06/2024 Travel Social History Tobacco Use Types Packs/Day [...] 07/24/2024 9:00 AM EST Office Visit [facility] [address] [place] [address] Vasquez Farooq MD [address] [place] [address] [phone] 08/21/2024 2:30 PM EDT Office Visit [address] [address] Maricarmen Winn FNP 230 [place] [address] documented as of this encounter Goals Goal [...] documented as of this encounter Care Teams Bobbin Inspector Relationship Specialty Start Date End Date Maricarmen Winn FNP [address] [place] [phone] PCP - General Family Medicine 07/13/22 documented as of this encounter
--- OUTSIDE RECORDS SUMMARY | 2024-07-04 16:10 | XMS_ITS | Encounter Summary ---
Author Organization [employer] Address 75 [facility] 7t [place] [address] Care Team Providers Care Real Estate Intern Name Role Phone Spr[place]le Mills [facility] Primary Care Provider [phone] Reason for Visit * Reason Comments Med Refill Encounter Details Date Type Department Care Team ([facility] st Contact Info) Description 01/05/2024 Refill [facility] 230 [place], [place] [phone] [facility] 230 [place] [address] Essential hypertension Social History Tobacco Use Types [...] with others, in a hotel, in a fpc, living outside on the street, on a [...] Description 07/24/2024 9:00 AM EST Office Visit [address] [address] Vasquez Farooq MD [address] [place] [address] 08/21/2024 2:30 PM EDT Office Visit [address] [address] Maricarmen Winn FNP [address] [place] [address] documented as of this encounter Goals Goal Patient Goal Type Associated Problems Recent Progress Patient-Stated? Author Blood Pressure < 140/90 Blood Pressure 141/93( 024 1:41 PM EST) No Fallon Pizarro, PharmD documented as of this encounter Visit Diagnoses Diagnosis Essential hypertension Unspecified essential hypertension documented in this encounter Additional Health Concerns Assessment Noted Time PHQ-9 Depression Total Score: 0 03/22/20 2:46 PM EDT documented as of this encounter Care Teams Real Estate Intern Relationship Specialty Start Date End Date Maricarmen Winn FNP [address] [place] [address] PCP - General Family Medicine 07/13/22 documented as of this encounter
--- OUTSIDE RECORDS SUMMARY | 2024-07-04 16:10 | XMS_ITS | Encounter Summary ---
Author Organization [employer] Address 75 [facility] 7t [place] [address] Care Team Providers Care Depalletizer Operator Name Role Phone Maricarmen Winn SILVER BUFFER Primary Care Provider [phone] Encounter Details Date Type Department Care Team (Latest Contact Info) Description 06/19/2024 Travel Social History Tobacco Use Types Packs/Day [...] Description 07/24/2024 9:00 AM EST Office Visit [facility] [address] [place] [address] Vasquez Farooq MD [address] [place] [address] [phone] 08/21/2024 2:30 PM EDT Office Visit [address] [address] Maricarmen Winn FNP 230 [place] [address] documented as of this encounter Goals Goal [...] documented as of this encounter Care Teams Depalletizer Operator Relationship Specialty Start Date End Date Maricarmen Winn FNP [address] [place] [address] PCP - General Family Medicine 07/13/22 documented as of this encounter
--- OUTSIDE RECORDS SUMMARY | 2024-07-04 16:10 | XMS_ITS | Encounter Summary ---
Author Organization [employer] Address 75 [facility] 7t [place] [address] Care Team Providers Care Animal Shelter Clerk Name Role Phone Maricarmen Winn DISTANCE LEARNING COORDINATOR Primary Care Provider [phone] Reason for Visit * Reason Comments Med Refill Encounter Details Date Type Department Care Team ([facility] st Contact Info) Description 02/07/2024 Refill [facility] 230 [place] [address] Vasquez Farooq MD 230 [place] [address] Opioid dependence, uncomplicated (CMS/HCC) Social History Tobacco [...] with others, in a hotel, in a senior living, living outside on the street, on a [...] Description 07/24/2024 9:00 AM EST Office Visit [facility] [address] [place] [address] [phone] Vasquez Farooq MD [address] [place] [address] [phone] 08/21/2024 2:30 PM EDT Office Visit [address] [address] Maricarmen Winn FNP [address] [place] [phone] documented as of this encounter Goals Goal [...] documented as of this encounter Care Teams Animal Shelter Clerk Relationship Specialty Start Date End Date Maricarmen Winn FNP [address] [place] [phone] PCP - General Family Medicine 07/13/22 documented as of this encounter
--- OUTSIDE RECORDS SUMMARY | 2024-07-04 16:10 | XMS_ITS | Encounter Summary ---
Author Organization [employer] Address [address] [facility] 7t [place] [address] Care Team Providers Care Knurling Machine Operator Name Role Phone [facility] Primary Care Provider [phone] Reason for Visit * Reason Comments Med Refill Encounter Details Date Type Department Care Team ([facility] st Contact Info) Description 03/01/2024 Refill [facility] 230 [place], [place] [phone] [facility] 230 [place] [address] Essential hypertension Social History Tobacco Use Types [...] with others, in a hotel, in a long term, living outside on the street, on a [...] Description 07/24/2024 9:00 AM EST Office Visit [address] [address] Vasquez Farooq MD [address] [place] [phone] 08/21/2024 2:30 PM EDT Office Visit [address] [address] Maricarmen Winn FNP [address] [place] [address] documented as of this encounter Goals Goal [...] documented as of this encounter Care Teams Knurling Machine Operator Relationship Specialty Start Date End Date Maricarmen Winn FNP [address] [place] [phone] PCP - General Family Medicine 07/13/22 documented as of this encounter
== END 2024-07-04 13:43 | disposition home or self-care (01) ==
LOC: HO.MAMMO 13:42
PROVIDERS: Visit Provider Registered Nurse
DX: Z13.820 Encounter for screening for osteoporosis (principal); M80.08XA Age-related osteoporosis with current pathological fracture, vertebra(e), initial encounter for fracture
CPT/HCPCS: 77080

== ENCOUNTER → 2024-07-04 14:00 | Outpatient (BNV) | payer MEDICARE, MEDICAID, SELFPAY | PROVIDERS: Visit Provider Radiology Diagnostic Radiology | DX: E28.39 Other primary ovarian failure (principal) | CPT/HCPCS: 77080 ==

== ENCOUNTER 2024-07-10 06:52 | Outpatient (REF) | payer MEDICARE, MEDICAID, SELFPAY ==
[2024-07-10 07:01] LABS: MANUAL DIFF FLAG NO
[2024-07-10 07:55] LABS: Basophils Percent Auto 0.6 % (0-2); Eosinophils Absolute Auto 0.3 X10*3/uL (0.0-0.4); Eosinophils Percent Auto 5.3 % (0-4); Hematocrit 39.4 % (42.0-52.0); Imm Gran Abs Auto 0.06 X10*3/uL (0.00-0.03); Imm Gran Pct Auto 0.9 % (0.0-0.4); Lymphocytes Absolute Auto 1.7 X10*3/uL (1.2-4.9); Lymphocytes Percent Auto 25.7 % (20-40); Mean Corpuscular Hemoglobin 29.5 pg (27.0-33.0); Mean Corpuscular Volume 89.3 fL (80.0-98.0); Mean Platelet Volume 10.1 fL (9.4-12.4); Monocytes Absolute Auto 0.8 X10*3/uL (0.1-1.2); Monocytes Percent Auto 12.8 % (2-11); Neutrophils Absolute Auto 3.5 x10*3/uL (2.0-8.3); Neutrophils Percent Auto 54.7 % (45-73); Platelet Count 186 X10*3/uL (160-400); Red Blood Count 4.41 X10*6/uL (4.60-5.80); Red Cell Distribution Width 11.9 % (11.0-16.0); White Blood Count 6.4 X10*3/uL (4.8-10.8)
[2024-07-10 08:21] LABS: Alanine Aminotransferase 37 U/L (0-40); Albumin Level 4.3 g/dL (3.5-5.0); Anion Gap 12 (12-20); Aspartate Amino Transferase 34 U/L (5-37); Bilirubin Total 0.8 mg/dL (0.0-1.0); Blood Urea Nitrogen 13 mg/dL (9-16); Calcium 9.3 mg/dL (8.4-10.2); Carbon Dioxide 26 mmol/L (22-29); Chloride 103 mmol/L (96-108); Estimated Glomerular Filt Rate > 60; Glucose Random 160 mg/dL (60-115); Magnesium 1.9 mg/dL (1.6-2.6); Phosphorus 3.2 mg/dL (2.7-4.5); Potassium 4.3 mmol/L (3.3-5.1); Sodium 137 mmol/L (135-145); Total Protein 8.2 g/dL (6.5-8.0)
[2024-07-10 08:26] LABS: Parathyroid Hormone Intact 100.9 pg/mL (8.7-77.1)
[2024-07-10 08:46] LABS: Vitamin D 25-OH Total 10.1 ng/mL (>30)
[2024-07-10 11:05] LABS: Alkaline Phosphatase 91 U/L (39-117)
[2024-07-14 10:28] LABS: Prot Elec - Albumin 4.5 g/dL (3.8-4.8); Prot Elec - Alpha1 0.3 g/dL (0.2-0.3); Prot Elec - Alpha2 0.7 g/dL (0.5-0.9); Prot Elec - Beta 1 0.5 g/dL (0.4-0.6); Prot Elec - Beta 2 0.5 g/dL (0.2-0.5); Prot Elec - Gamma 1.3 g/dL (0.8-1.7); Prot Elec - Total Protein 7.8 g/dL (6.1-8.1)
[2024-07-14 14:33] LABS: Testosterone, Total 380 ng/dL (250-1100)
== END 2024-07-10 06:53 | disposition home or self-care (01) ==
LOC: HO.LAB 06:52
PROVIDERS: PCP Registered Nurse; Visit Provider Registered Nurse
DX: M80.00XA Age-related osteoporosis with current pathological fracture, unspecified site, initial encounter for fracture (principal); M85.9 Disorder of bone density and structure, unspecified
CPT/HCPCS: 36415; 80053; 82306; 83735; 83970; 84100; 84165; 84403; 85025

== ENCOUNTER 2024-07-11 13:29 | Outpatient (AMB) | payer MEDICARE, MEDICAID, SELFPAY ==
[2024-07-11 13:44] VITALS: BMI 33.9
--- NOTE | 2024-07-11 13:44 | A.SPINEOV_ITS ---
Vital Signs 07/11/24 13:44 Height 6 ft Weight 250 lb BMI 33.9 Intake Visit Reasons: LBP Intake Note: Mr. Russell Heck is here today c/o Lower back pain that radiate down to the right leg and feet. Cranberry Bog Supervisor Required: Yes Cranberry Bog Supervisor Name: Tablet Allergies No Known Allergies Allergy (Verified 07/11/24 14:01) Physical Exam Vital Signs: BMI result Body Mass Index 33.9 Assessment & Plan Assessment & Plan (1) Back pain: Code(s): M54.9 - Dorsalgia, unspecified Category: Medical Plan Dear Maricarmen, Thank you for referring Mr Wells to our office today. He is a very nice Mauritanian-speaking 59-year-old gentleman who presents to the office today for evaluation of chronic low back pain going down the right leg. I used my medical screener Mindy for interpretation today. He comes in today with a lumbar and a thoracic MRI to review. He has had chronic back pain for years. He relates it to work he was doing some time many years ago and he had to bend over and lift something heavy and he felt acute onset pain in his low back. He has over the years developed a radiculopathy which he describes as coming up his right leg, encompassing his whole right leg with numbness of his foot. To this point he has had no dedicated conservative treatment. He does take [id number] medications like Motrin from time to time. He is a recovering heroin addict, still using alcohol fairly heavily as well, on Suboxone so his options for prescription pain medication a very limited. His pain is aggravated with standing and walking gets better when he sits but if he sits for too long the pain will intensify. He describes his back pain is encompassing his whole lumbar region. I asked him about other back pain and he did not really describe much in the thoracic spine. No myelopathic complaints. PMH: He has a history of high cholesterol, hypertension, prediabetes. He has been using alcohol heavily for years, he drinks about 3 nips of alcohol a day, stopped using heroin 2 years ago. He has never had surgery, he believes he has some degree of fatty liver disease or alcohol-related liver disease but he is not sure. He just had lab testing done yesterday but has not received the results yet. He has history of osteopenia. Social hx: He smokes about 7 or 8 cigarettes a day, uses about 3 nips of alcohol a day, does not use marijuana or any recreational drugs. Medications: Atorvastatin, Suboxone, clonidine, dicyclomine, escitalopram, famotidine, multivitamin, naproxen, omeprazole, simethicone, thiamine, trazodone Allergies: None Physical exam: Awake alert oriented no acute distress, he is able to stand up out of a chair mobilize around the room on his own, strength and reflexes are normal. Imaging review: There is a lumbar MRI and a thoracic MRI done at [facility] review. The thoracic MRI shows degenerative endplate changes at T4-5, as well as an old compression fracture T4. Lumbar MRI shows severe degenerative disc disease at L4-5 with moderate to severe right L4 foraminal stenosis, moderate degenerative disc disease at L3-4. No significant central canal stenosis. Impression: 59-year-old Mauritanian-speaking gentleman presents for evaluation of chronic centralized low back pain which does have a component of radiculopathy which radiates up his leg when he is standing walking with numbness of his right foot. He describes all the toes is feeling numb. He has a history of narcotic abuse, also alcohol abuse. He has been sober from the heroin for 2 years on Suboxone treatment therapy but has been continuing to drink approximately 3 nips a day he reports. His MRI does show degenerative disc disease in the lumbar spine which may be consistent with his pain. There is compression in the right L4 foramen but I am not sure if I could explain it causing numbness of his toes. At this point he has had no dedicated conservative treatment so I am going to send him to therapy. I offered him the option going to pain management but he is reluctant to consider an injection because of friends of his who had bad experiences. I will see him back in 2 months after he has completed therapy and re-evaluate and can review his imaging with Dr. Brannon at that time to see if he thinks he would be a surgical candidate if he fails PT. we will also need to get updated lab values once they are finalized in our system to make sure he does not have severe cirrhosis or some other medical cause that would exclude him from surgery. Does have osteopenia so that would be a factor in decision making as well. With regard to his thoracic spine. He has an old healed T4 compression fracture and there is nothing to be done for that. He has some mild degeneration at the T4-5 endplates and there is nothing surgical for that either. Thank you for allowing us to care for your patient. The total time spent with this visit with this patient was 45 minutes reviewing history, physical exam, thoracic and lumbar imaging review, and implementation of treatment plan or further diagnostic testing Oswald Brannon MD,PhD [facility] Orders: Orders PT Evaluation and Treatment Today M54.9 - Dorsalgia, unspecified Coding Level of Care Code New Pt Level 4 (36453) Diagnoses Back pain M54.9
--- OUTSIDE RECORDS SUMMARY | 2024-07-11 17:22 | XMS_ITS | Encounter Summary ---
Author Organization [employer] Address 75 [facility] 7t [place] [address] Care Team Providers Care Institute Director Name Role Phone Maricarmen Winn SLEEVE BOTTOM FELLER Primary Care Provider [phone] Encounter Details Date Type Department Care Team (Late st Contact Info) Description 04/28/2023 Abstract [facility] [address] [place], [place] [phone] Nano Sandoval Social History Tobacco Use Types [...] Description 07/24/2024 9:00 AM EST Office Visit [facility] [address] [place] [address] Vasquez Farooq MD [address] [place] [address] 08/21/2024 2:30 PM EDT Office Visit [address] [address] Maricarmen Winn FNP [address] [place] [address] documented as of this encounter Goals Goal [...] documented as of this encounter Care Teams Institute Director Relationship Specialty Start Date End Date Maricarmen Winn FNP [address] [place] [address] PCP - General Family Medicine 07/13/22 documented as of this encounter
--- OUTSIDE RECORDS SUMMARY | 2024-07-11 17:22 | XMS_ITS | Clinical Summary ---
Author Organization [facility] Address [address] [facility] 7t [place] [address] Care Team Providers Care Bessemer Bottom Maker Name Role Phone Maricarmen Winn [facility] Primary Care Provider [phone] Allergies No known active allergies Medications naloxone (Narcan) 4 mg/0.1 mL nasal spray Administer 0.1 mL into affected nostril(s) if needed. [place] 0.1 mL by intranasal route in one [...] Active Problems Problem Noted Date Diagnosed Date Osteoporosis with current pathological fracture 07/09/2024 Metabolic syndrome 05/23/2024 Elevated liver enzymes 03/31/2024 [...] ?? Followed by therapy and psychiatry at [facility] ?? Escitalopram and clonidine Essential hypertension 10/11/2018 [...] and multivitamin supplement Sees Dr. Farooq at [facility] Nicotine dependence 05/09/2018 Opioid dependence, uncomplicated 05/09/2018 [...] Encounters Date Type Department Care Team Description 07/10/2024 9:00 AM EST Office Visit [facility] [address] [place] [phone] Vasquez Farooq MD Opioid dependence, uncomplicated (CMS/HCC) (Primary Dx) 07/10/2024 Patient Outreach [facility] [address] [place] [phone] Fabian Harris Recovery Supports 07/10/2024 Travel 07/09/2024 Telephone [facility] [address] [place] [address] [phone] Sherry Gaspar RN 07/09/2024 Orders Only [facility] [address] [place] [phone] [place], Maricarmen, [facility] Osteoporosis with current pathological fracture, unspecified osteoporosis type, initial encounter (Primary Dx); Disorder of bone density and structure, unspecified 07/03/2024 9:00 AM EST Office Visit [address] [address] Vasquez Farooq MD Opioid dependence, uncomplicated (CMS/HCC) (Primary Dx) 07/03/2024 Travel 06/28/[address] [address] Josephine Green RN Results; Referral 06/26/2024 9:00 AM EST Office Visit [address] [address] Vasquez Farooq MD Opioid dependence, uncomplicated (CMS/HCC) (Primary Dx) 06/26/2024 Orders Only [facility] [address] [place] [address] [place], Trion, [facility] Age-related osteoporosis with current pathological fracture, initial encounter (Primary Dx); Age-related osteoporosis with current pathological fracture, vertebra(e), initial encounter for fracture (CMS/HCC); Lumbar nerve root compression 06/26/2024 Travel 06/21/[address] [address] Shayy Baer RN Opioid dependence, uncomplicated (CMS/HCC) 06/19/2024 9:00 AM EST Office Visit [address] [address] Vasquez Farooq MD Opioid dependence, uncomplicated (CMS/HCC) (Primary Dx) 06/19/2024 Travel 06/06/2024 1:30 PM EST Clinical Support [address] [address] Sho Ramos, CLAUDIA Essential hypertension 06/06/2024 Travel 05/29/2024 9:00 AM EST Office Visit [address] [address] Vasquez Farooq MD Opioid type dependence, continuous (CMS/HCC) (Primary Dx) 05/29/2024 Travel 05/28/2024 Refill [facility] [address] [place] [phone] Shayy Baer RN Opioid dependence, uncomplicated (CMS/HCC) 05/22/2024 11:00 AM EST Immunization [address] [address] Nirmala Howe, CLAUDIA Encounter for immunization 05/22/2024 9:00 AM EST Office Visit [address] [address] Vasquez Farooq MD Opioid dependence, uncomplicated (CMS/HCC) (Primary Dx) 05/22/2024 Travel 05/20/2024 1:00 PM EST Office Visit [address] [address] [place], [place], [facility] Essential hypertension (Primary Dx); Metabolic syndrome; Lesion of thoracic vertebra 05/20/2024 Travel 05/08/2024 9:00 AM EST Clinical Support [address] [address] Sue Boyce, CLAUDIA Opioid dependence, uncomplicated (CMS/HCC); Moderate alcohol dependence (CMS/HCC) 05/08/2024 Travel 05/01/2024 9:00 AM EST Office Visit [address] [address] Vasquez Farooq MD Opioid type dependence, continuous (CMS/HCC) (Primary Dx) 05/01/2024 Travel 04/25/[address] [address] Shayy Baer RN Opioid dependence, uncomplicated (CMS/HCC) 04/17/2024 9:00 AM EST Office Visit [address] [address] Vasquez Farooq MD Uncomplicated opioid dependence (CMS/HCC) (Primary Dx) 04/17/2024 Travel from Last 3 Months Immunizations Name [...] your housing situation today? I have mickey marie 03/19/[address] you li [...] Description 07/24/2024 9:00 AM EST Office Visit [facility] [address] [place] [phone] Vasquez Farooq MD [address] [place] [address] 08/21/2024 2:30 PM EDT Office Visit [facility] [address] [place] [address] [facility], [facility] [address] [place] [address] Health Maintenance Due Date Last Done Comments [...] age to complete this topic Pneumococcal Vaccine: 50+ Years Completed 12/20/2022 Influenza Vaccine Completed 05/22/2024, , [...] 141/93( 024 1:41 PM EST) No Fallon Pizarro PharmD Procedures Procedure Name Priority Date/Time Associated Diagnosis Comments COMPREHENSIVE METABOLIC PANEL Routine 07/10/2024 6:59 AM EST Osteoporosis with current pathological fracture, unspecified osteoporosis type, initial encounter VITAMIN D,25-OH,TOTAL,IA Routine 07/10/2024 6:59 AM EST Osteoporosis with current pathological fracture, unspecified osteoporosis type, initial encounter Disorder of bone density and structure, unspecified MAGNESIUM Routine 07/10/2024 6:59 AM EST Osteoporosis with current pathological fracture, unspecified osteoporosis type, initial encounter PHOSPHATE ( PHOSPHORUS) Routine 07/10/2024 6:59 AM EST Osteoporosis with current pathological fracture, unspecified osteoporosis type, initial encounter CBC WITH AUTO DIFFERENTIAL Routine 07/10/2024 6:59 AM EST Osteoporosis with current pathological fracture, unspecified osteoporosis type, initial encounter PTH, INTACT WITHOUT CALCIUM Routine 07/10/2024 6:59 AM EST Osteoporosis with current pathological fracture, unspecified osteoporosis type, initial encounter BD DEXA AXIAL Routine 07/04/2024 1:50 PM [...] bilateral low back pain with right-sided sciatica LIPID PANEL, STANDARD Routine 01/03/2024 12:08 PM EDT Essential hypertension HEPATITIS PANEL, GENERAL Routine 12/12/2022 10:09 AM EDT Mixed hyperlipidemia HIV ANTIBODY/ANTIGEN ([place] DPH) Routine 11/22/2022 8:52 AM EDT Mixed hyperlipidemia COLONOSCOPY Routine 08/06/2015 from Last 3 Months or Most Recently Relevant to Health Maintenance Results * (ABNORMAL) Vitamin D, 25-Hydroxy, Total, Immunoassay (07/10/2024 6:59 AM EST) Vitamin D 25-OH Total 10.1(L) >30 ng/mL [facility] Comment:Health Based Referen ce Values*< 20 ng/mL Jwoblstdl05-25 ng/mL Insufficient> 30 ng/mL Sufficient*Junito HO. N Engl J Med. 2007;357:266-280Care must be taken in interpreting Vitamin D results fromdifferent laboratories and methodologies. Published datademonstrated that results from patients undergoinghemodialysis may show a negative bias when tested withvarious automated 25-OH vitamin D assays when compared toLC-MS/MS.When testing samples from patients whose predominant form ofVitamin D is Vitamin D2, such as patients receiving VitaminD2 supplementation, results that are subtherapeutic shouldbe confirmed with another method such as LC-MS/MS. Blood Venous blood specimen / Unknown 07/10/2024 6:59 AM EST 07/10/2024 6:59 AM EST [facility] LAB BLOOD ORDERABLES Final Re sult [facility] [address] [place] [phone] * (ABNORMAL) CBC auto differential (07/10/2024 6:59 AM EST) White Blood Count 6.4 4.8 - 10.8 X10*3/uL [facility] Red Blood Count 4.41(L) 4.60 - 5.80 X10*6/uL [facility] Hemoglobin 13.0(L) 14.0 - 18.0 g/dl [facility] Hematocrit 39.4(L) 42.0 - 52.0 % [facility] Mean Corpuscular Volume 89.3 80.0 - 98.0 fL [facility] Mean Corpuscular Hemoglobin 29.5 27.0 - 33.0 pg [facility] Mean Corpuscular HGB Conc 33.0 31.0 - 36.0 g/dl [facility] Red Cell Distribution Width 11.9 11.0 - 16.0 % [facility] Platelet Count 186 160 - 400 X10*3/uL [facility] Mean Platelet Volume 10.1 9.4 - 12.4 fL [facility] Neutrophils Percent Auto 54.7 45 - 73 % [facility] Imm Gran Pct Auto 0.9(H) 0.0 - 0.4 % [facility] Lymphocytes Percent Auto 25.7 20 - 40 % [facility] Monocytes Percent Auto 12.8(H) 2 - 11 % [facility] Eosinophils Percent Auto 5.3(H) 0 - 4 % [facility] Basophils Percent Auto 0.6 0 - 2 % [facility] NRBC Pct Auto 0.0 0.0 - 0.2 /100WBC [facility] Neutrophils Absolute Auto 3.5 2.0 - 8.3 x10*3/uL [facility] Imm Gran Abs Auto 0.06(H) 0.00 - 0.03 X10*3/uL [facility] Lymphocytes Absolute Auto 1.7 1.2 - 4.9 X10*3/uL [facility] Monocytes Absolute Auto 0.8 0.1 - 1.2 X10*3/uL [facility] Eosinophils Absolute Auto 0.3 0.0 - 0.4 X10*3/uL [facility] Basophils Absolute Auto 0.0 0.0 - 0.2 X10*3/uL [facility] NRBC Abs Auto 0.000 0.0 - 0.012 X10*3/uL [facility] Blood Venous blood specimen / Unknown 07/10/2024 6:59 AM EST 07/10/2024 6:59 AM EST [facility] COMPLAINT CLERK LAB BLOOD ORDERABLES Final Re sult Performing Organization Address [facility] Co de Phone Number [facility] [address] [place] [phone] * Phosphate (As Phosphorus) (07/10/2024 6:59 AM EST) Phosphorus 3.2 2.7 - 4.5 mg/dL [facility] Blood Venous blood specimen / Unknown 07/10/2024 6:59 AM EST 07/10/2024 6:59 AM EST [facility] LAB BLOOD ORDERABLES Final Re sult Performing Organization Address [facility] de Phone Number [facility] [address] [place] [phone] * (ABNORMAL) PTH, Intact Without Calcium (07/10/2024 6:59 AM EST) Parathyroid Hormone, Intact 100.9(H) 8.7 - 77.1 pg/mL [facility] Blood Venous blood specimen / Unknown 07/10/2024 6:59 AM EST 07/10/2024 6:59 AM EST [facility] LAB BLOOD ORDERABLES Final Re sult Performing Organization Address [facility] de Phone Number [facility] [address] [place] [phone] * Magnesium (07/10/2024 6:59 AM EST) Magnesium 1.9 1.6 - 2.6 mg/dL [facility] Blood Venous blood specimen / Unknown 07/10/2024 6:59 AM EST 07/10/2024 6:59 AM EST [facility] LAB BLOOD ORDERABLES Final Re sult Performing Organization Address [facility] Co de Phone Number [facility] [address] [place] [phone] * (ABNORMAL) Comprehensive Metabolic Panel (07/10/2024 6:59 AM EST) Only the most recent of2 resultswithin the time period is included. Sodium 137 135 - 145 mmol/L [facility] Potassium 4.3 3.3 - 5.1 mmol/L [facility] Chloride 103 96 - 108 mmol/L [facility] Carbon Dioxide 26 22 - 29 mmol/L [facility] Anion Gap 12 12 - 20 [facility] Urea Nitrogen (BUN) 13 9 - 16 mg/dL [facility] Creatinine, Serum 0.79 0.5 - 1.4 mg/dL [facility] Estimated Glomerular Filt Rate >60 [facility] Comment:Chronic Kidney Disea se: Estimated GFR < 60 mL/min/1.83b9[place]kog Kidney Disease: Estimated GFR < 15 mL/min/1.73m2 Glucose 160(H) 60 - 115 mg/dL [facility] Calcium 9.3 8.4 - 10.2 mg/dL [facility] Bilirubin, Total 0.8 0.0 - 1.0 mg/dL [facility] Aspartate Amino Transferase 34 5 - 37 U/L [facility] Alanine Aminotransferase 37 0 - 40 U/L [facility] Total Protein 8.2(H) 6.5 - 8.0 g/dL [facility] Albumin Level 4.3 3.5 - 5.0 g/dL [facility] Alkaline Phosphatase 91 39 - 117 U/L [facility] Blood Venous blood specimen / Unknown 07/10/2024 6:59 AM EST 07/10/2024 6:59 AM EST [facility] LAB BLOOD ORDERABLES Final Re sult [facility] [address] [place] [address] [phone] * BD DEXA Axial (07/04/2024 1:50 PM EST) Anatomical Region Laterality Modality Body Radiographic Doris ging 07/04/2024 1:50 PM EST Narrative 07/04/2024 3:17 PM EST ? [facility] [place] ? [address] ?[place] [address] ? Mammography Report ? Signed ? Patient: Kieran Palomo ?MR#: M ?? [id number] ? : 1965 ?Acct:[id number] ? Age/Sex: 59 / M ?ADM Date: 07/04/24 ? Loc: HO.MAMMO ? Attending Dr: Maricarmen Winn COMPLAINT CLERK ? Ordering Physician: Maricarmen Winn COMPLAINT CLERK ?Results: ? Date of Service: 07/04/24 ?Follow Up: ? Procedure(s): XR DEXA axial skeleton ?? Accession Number(s): [id number] ? cc: Tatum,Maricarmen COMPLAINT CLERK ? EXAMINATION: ??DXA BONE DENSITY AXIAL ? HISTORY: ??Estrogen deficiency ? TECHNIQUE: [employer] Dual energy absorptiometry (DEXA) ?? of the [...] the [employer]'s ?? [place] for Metabolic Bone Disease, a World Health Organization (WHO) ?? Collaborating Center. ? Electronically signed by: ??Garrick Murry MD ??07/04/2024 03:15 PM EST ? Dictated By: ?Garrick Murry MD ? Signed By: ?<Electronically signed by Garrick Murry MD in OV> ?07/04/24 1515 ? DD/ 1350 ? TD/TT: 07/04/24 1422 ? Padded Box Sewer: ? Procedure Note Kirstin, Wesly - 07/04/2024 [facility] [address] [place] [address] Dr. Hwang, DANISHA [address] Mammography Report Signed Patient: Kieran Palomo#: M [id number] : 1965Acct:[id number] Age/Sex: 59 / MADM Date: 07/04/24 Loc: TRAVIS Attending Dr: Maricarmen Winn COMPLAINT CLERK Ordering Physician: Maricarmen Winn FNPResults: Date of Service: 07/04/24Follow Up: Procedure(s): XR DEXA axial skeleton Accession Number(s): [id number] cc: Maricarmen Winn COMPLAINT CLERK EXAMINATION: DXA BONE DENSITY AXIAL HISTORY: Estrogen deficiency TECHNIQUE: [employer] Dual energy absorptiometry (DEXA) of the lumbar [...] of the [employer]'s [place] for Metabolic Bone Disease, a World Health Organization (WHO) Collaborating Center. Electronically signed by: Garrick Murry MD 07/04/2024 03:15 PM [facility] Dictated By: Garrick Murry MD Signed By: <Electronically signed by Garrick Murry MD in OV> 07/04/24 9575 DD/ 1350 TD/TT: 07/04/24 1422 Padded Box Sewer: [facility] COMPLAINT CLERK IMG DXA PROCEDURES Final Resu lt * POCT EMA-14 Urine Drug Screen (06/26/2024 9:20 AM EST) Only the most recent of3 resultswithin the time period is included. THC Negative Cocaine Screen, Urine Negative Opiate [...] TEST ENTER/EDIT OR DERABLES Final Result * MR Thoracic Spine w/ and w/o Contrast (04/29/2024 9:00 AM EST) Anatomical Region Laterality Modality Spine, T-spine Magnetic Resonan ce 04/29/2024 9:00 AM EST Narrative 06/21/2024 11:40 AM EST ? [facility] ?[address] ?[place] [address] ? Magnetic Resonance Report ? Signed ? Patient: Kieran Palomo ?MR#: M ?? [id number] ? : 1965 ?Acct:[id number] ? Age/Sex: 59 / M ?ADM Date: 04/29/24 ? Loc: HO.MRI ? Attending Dr: Maricarmen Winn COMPLAINT CLERK ? Ordering Physician: Maricarmen Winn COMPLAINT CLERK ?? Date of Service: 04/29/24 ?? Procedure(s): MR thoracic spine wo/w con ?? Accession Number(s): [id number] ? cc: Tatum,Maricarmen COMPLAINT CLERK ? EXAMINATION: ?? MR thoracic spine with [...] by Tom Husain MD in OV> ? 06/21/24 1137 ? DD/ 0900 ? TD/TT: 04/29/24 0921 ? Padded Box Sewer: ? Procedure Note Kirstin, Wesly - 06/21/[address] [address] Magnetic Resonance Report Signed Patient: Russell HeckKieran#: M [id number] : 1965Acct:[id number] Age/Sex: 59 / MADM Date: 04/29/24 Loc: HO.MRI Attending Dr: Maricarmen Winn COMPLAINT CLERK Ordering Physician: Maricarmen Winn Date of Service: 04/29/24 Procedure(s): MR thoracic spine wo/w con Accession Number(s): [id number] cc: Maricarmen Winn COMPLAINT CLERK EXAMINATION: MR thoracic spine with and without [...] Husain MD in OV> 06/21/24 1137 DD/ 0900 TD/TT: 04/29/24 0921 Padded Box Sewer: [facility] IMG MRI PROCEDURES Final Resu lt * MR Lumbar Spine w/o Contrast (04/29/2024 8:39 AM EST) Anatomical Region Laterality Modality Spine, L-spine Magnetic Resonan ce 04/29/2024 8:39 AM EST Narrative 06/21/2024 11:40 AM EST ? [facility] ?[address] ?[place] [address] ? Magnetic Resonance Report ? Signed ? Patient: Russell Heck,Kieran ?MR#: M ?? [id number] ? : 1965 ?Acct:[id number] ? Age/Sex: 59 / M ?ADM Date: 11/18/24 ? Loc: HO.MRI ? Attending Dr: Maricarmen GUILLEN ? Ordering Physician: Maricarmen Winn ?? Date of Service: 04/29/24 ?? Procedure(s): MR lumbar spine wo con ?? Accession Number(s): [id number] ? cc: Maricarmen Winn ? EXAMINATION: ?? [...] by Tom Husain MD in OV> ? 06/21/241136 ? DD/ 0839 ? TD/TT: 04/29/24 0847 ? Padded Box Sewer: ? Procedure Note Kirstin, Image - 06/21/[address] [address] Magnetic Resonance Report Signed Patient: Kieran Palomo#: M [id number] : 1965Acct:[id number] Age/Sex: 59 / MADM Date: 04/29/24 Loc: HO.MRI Attending Dr: Maricarmen Winn COMPLAINT CLERK Ordering Physician: Tatum,Maricarmen COMPLAINT CLERK Date of Service: 04/29/24 Procedure(s): MR lumbar spine con Accession Number(s): [id number] cc: Maricarmen Winn COMPLAINT CLERK EXAMINATION: MR thoracic spine with and without [...] by: Tom Husain MD 06/21/2024 11:37 AM [facility] Dictated By: Tom Husain MD Signed By: <Electronically signed by Tom Husain MD in OV> 06/21/24 1137 DD/ 0839 TD/TT: 04/29/24 0847 Padded Box Sewer: [facility] COMPLAINT CLERK IMG MRI PROCEDURES Final Resu lt * (ABNORMAL) Lipid Panel, Standard (01/03/2024 12:08 PM EDT) Triglycerides 62 <150 mg/dL [facility] Comment:Desirable Triglyceri de: less than 150 mg/dLBorderline High Triglyceride 150-199 mg/dLHigh Triglyceride: 200-499 mg/dLVery High Triglyceride: greater than or equal to 5OO mg/dL Cholesterol 226(H) <200 mg/dL [facility] Comment:Desirable Cholestero l: less than 200 mg/dLBorderline High Cholesterol: 200-239 mg/dLHigh Cholesterol: greater than 239 mg/dL LDL Cholesterol Calculated 96 <100 mg/dL [facility] Comment:Desirable LDL: less than 100 mg/dLNear Optimal/Above Optimal LDL: 110- 129 mg/dLBorderline High LDL: 130-159 mg/dLHigh LDL: 160-189 mg/dLVery High LDL: greater than or equal to 190 mg/dL HDL Cholesterol 118 >40 mg/dL [facility] Comment:Desirable HDL: great er than 40 mg/dL Note: This HDL assay may give artificially low results in patients with liver disease. Blood Venous blood specimen / Unknown 01/03/2024 12:08 PM EDT 01/03/2024 12:08 PM EDT [facility] COMPLAINT CLERK LAB BLOOD ORDERABLES Final Re sult [facility] [address] [place] [phone] * Hepatitis Panel, General (12/12/2022 10:09 AM EDT) Hepatitis A IgM Nonreactive Nonreactive [facility] Comment:IgM antibodies to DUVAL V not detected; does not exclude earlyacute or recovered HAV infection. ~Hepatitis B Surface Antibody REACTIVE Nonreactive [facility] Comment:REACTIVE: > 11.99 mI U/mL Hepatitis B Core Antibody Nonreactive Nonreactive [facility] Hepatitis C Antibody Nonreactive Nonreactive [facility] Comment:Antibodies to HCV no t detected; does not exclude early acuteHCV infection. Hepatitis B Surface Ag Negative Negative [facility] 12/12/2022 10:0 9 AM EDT 12/12/2022 10:09 AM EDT [facility] External Provider LAB BLO OD ORDERABLES Final Result [facility] [address] [place] [address] [phone] * HIV Ab/Ag (DANISHA TADEO) (11/22/2022 8:52 AM EDT) HIV AB/AG Nonreactive Nonreactive [facility] Comment:HIV-1 p24 Ag and/or HIV-1/HIV-2 Ab not detected.A test result that is nonreactive does not exclude thepossibility of exposure to or infection with HIV-1 and/orHIV-2. Nonreactive results in this assay for individualswith prior exposure to HIV-1 and/or HIV-2 may be due toantigen and antibody levels that are below the limit ofdetection of this assay.The [employer] Down[employer] Maid HIV Ag/Ab Combo assay result andsupplemental assay results should be interpreted inconjunction with the patient's clinical presentation,history and other laboratory results. If the results areinconsistent with clinical evidence, additional testing issuggested to confirm the result. 11/22/2022 8:52 AM EDT 11/22/2022 8:53 AM EDT [facility] External Provider LAB BLO OD ORDERABLES Final Result [facility] [address] [place] [phone] * Colonoscopy (08/06/2015) Colonoscopy normal Narrative Nano Sandoval - 08/06/2015 Repeat in 10 years Historical Provider HEALTH MAINTENANCE Edited Result - Final from Last 3 Months or Most Recently Relevant to Health Maintenance Insurance [facility] STANDARD MEDICARE Care Teams Bessemer Bottom Maker Relationship Specialty Start Date End Date Maricarmen Winn FNP [address] [place] [address] PCP - General Family Medicine 07/13/22
--- OUTSIDE RECORDS SUMMARY | 2024-07-11 17:22 | XMS_ITS | Encounter Summary ---
Author Organization [employer] Address [address] [facility] [address] [place] [address] Care Team Providers Care Wool Dyer Name Role Phone Maricarmen Winn [employer] SUPERVISOR Primary Care Provider [phone] Reason for Visit * Reason Comments GBAT Encounter Details Date Type Department Care Team (Latest Contact Info) Description 07/03/2024 9:00 AM EST Office Visit [facility] [address] [place], [place] [phone] Vasquez Farooq MD [address] [place], [place] [phone] Opioid dependence, uncomplicated (CMS/HCC) (Primary Dx) Social [...] Following staff present at the visit: Physician, Monomer Recovery Supervisor, Clinician, Team RN, and MedicalAssistant Opportunities provided [...] Following staff present at the visit: Physician, Monomer Recovery Supervisor, Clinician, Team RN, and MedicalAssistant Opportunities provided [...] faced situations that may trigger use [employer] reviewed Following staff present at the visit: Physician, Team RN, Clinician, Monomer Recovery Supervisor and Habilitative Interventionist Follow up in 1 week for the [...] Description 07/24/2024 9:00 AM EST Office Visit [address] [address] Vasquez Farooq MD [address] [place] [phone] 08/21/2024 2:30 PM EDT Office Visit [address] [place] [address] Maricarmen Winn FNP [address] [place] [address] documented as of this encounter Goals Goal [...] documented as of this encounter Care Teams Wool Dyer Relationship Specialty Start Date End Date Maricarmen Winn FNP [address] [place] [address] PCP - General Family Medicine 07/13/22 documented as of this encounter
--- OUTSIDE RECORDS SUMMARY | 2024-07-11 17:22 | XMS_ITS | Encounter Summary ---
Author Organization [employer] Address 75 [facility] 7t [place] [address] Care Team Providers Care Environmental Inspector Name Role Phone Maricarmen Winn STRAP CUTTING MACHINE OPERATOR Primary Care Provider [phone] Reason for Visit * Reason Comments GBAT Encounter Details Date Type Department Care Team (Latest Contact Info) Description 06/19/2024 9:00 AM EST Office Visit [facility] [address] [place], [place] [phone] Vasquez Farooq MD 230 [place], [place] [phone] Opioid dependence, uncomplicated (CMS/HCC) (Primary Dx) Social [...] enrolled in behavioral health services, therapist Gayle. ADNISHA BAEZA reviewed by provider. Last PCP appt 06/30/2023. LAST GBAT VISIT 05/29/2024 UTOX: POS BUP ONLY NEG FOR ALL OTHER SUBSTANCES Patient presents for Group-Based Opioid Treatment for OUD Reviewed the group goals, expectations and policies Consented to the group treatment options Actively participated in the group discussion with the topic of: Toolbox for Maintaining Sobriety Following staff present at the visit: Physician, Corn Husker, Clinician, Team RN, and MedicalAssistant Opportunities provided [...] Following staff present at the visit: Physician, Corn Husker, Clinician, Team RN, and MedicalAssistant Opportunities provided [...] faced situations that may trigger use Mass BEER BREWER reviewed Following staff present at the visit: Physician, Team RN, Clinician, Corn Husker and Customer Support Coordinator Follow up in 1 week for the [...] Description 07/24/2024 9:00 AM EST Office Visit [facility] [address] [place] [address] Vasquez Farooq MD [address] [place] [address] 08/21/2024 2:30 PM EDT Office Visit [facility] 230 [place] [address] Maricarmen Winn FNP [address] [place] [address] documented as of this encounter Goals Goal [...] documented as of this encounter Care Teams Environmental Inspector Relationship Specialty Start Date End Date Maricarmen Winn FNP [address] [place] [address] PCP - General Family Medicine 07/13/22 documented as of this encounter
--- OUTSIDE RECORDS SUMMARY | 2024-07-11 17:22 | XMS_ITS | Encounter Summary ---
Author Organization [employer] Address 75 [facility] 7t [place] [address] Care Team Providers Care Front Office Secretary Name Role Phone Maricarmen Winn USED CAR LOT PORTER Primary Care Provider [phone] Encounter Details Date Type Department Care Team (Late st Contact Info) Description 08/01/2023 Orders Only [facility] 230 [place], [place] [phone] Shayy Baer RN Uncomplicated opioid dependence (CMS/HCC) [...] with others, in a hotel, in a usp, living outside on the street, on a [...] Description 07/24/2024 9:00 AM EST Office Visit [facility] [address] [place] [address] Vasquez Farooq MD [address] [place] [address] 08/21/2024 2:30 PM EDT Office Visit [facility] [address] [place] [address] Maricarmen Winn FNP [address] [place] [address] documented as of this encounter Goals Goal [...] documented as of this encounter Care Teams Front Office Secretary Relationship Specialty Start Date End Date Maricarmen Winn FNP [address] [place] [address] PCP - General Family Medicine 07/13/22 documented as of this encounter
--- OUTSIDE RECORDS SUMMARY | 2024-07-11 17:22 | XMS_ITS | Encounter Summary ---
Author Organization [employer] [facility] Address [address] [place] [address] [place], [place] [address] Care Team Providers Care Financial Legal Assistant Name Role Phone Maricarmen Winn Primary Care Provider [phone] Reason for Referral * Consultation (Routine) - Authorized Specialty Diagnoses / Procedures Referred By Elise arreola Referred To Contact Neurosurgery Diagnoses Lumbar nerve root compression Maricarmen Winn FNP [address] [place] [address] Phone: tel: fax: [facility] Referral ID Status Reason Start Date Expiration Date Visits Requested Visits Authorized [id number] Authorized Specialty Services Required 06/26/2024 06/26/2025 1 1 * Imaging (Routine) - Closed Specialty Diagnoses / Procedures Referred By Elise arreola Referred To Contact Radiology Diagnoses Age-related osteoporosis with current pathological fracture, initial encounter Age-related osteoporosis with current pathological fracture, vertebra(e), initial encounter for fracture ([facility]) Procedures BD DEXA Axial Maricarmen Winn FNP [address] [place] [address] Phone: tel: fax: [facility] [address] [place], [place] Phone: tel: fax: Referral ID Status Reason Start Date Expiration Date Visits Re quested Visits Authorized [id number] Closed 06/26/2024 06/26/2025 1 1 Encounter Details Date Type Department Care Team (Late st Contact Info) Description 06/26/2024 Orders Only [facility] [address] [place], [place] [phone] [place], [facility] [address] [place] [address] Age-related osteoporosis with current pathological fracture, initial [...] Description 07/24/2024 9:00 AM EST Office Visit [facility] [address] [place] [address] Vasquez Farooq MD [address] [place] [address] 08/21/2024 2:30 PM EDT Office Visit [facility] [address] [place], [place] [phone] [place] Maricarmen, EQUIPMENT MAINTENANCE TECHNICIAN [address] [place], [place] [phone] Scheduled Referrals Name Type Priority Associated Diagnoses [...] pathological fracture, vertebra(e), initial encounter for fracture ([facility]) documented in this encounter Results * BD DEXA Axial (07/04/2024 1:50 PM EST) Anatomical Region Laterality Modality Body Radiographic Doris ging 07/04/2024 1:50 PM EST Narrative 07/04/2024 3:17 PM EST ? [facility] ? [address] ?[place] [address] ? Mammography Report ? Signed ? Patient: Wells Umang,Kieran ?MR#: [id number] ?? [id number] ? : 1965 ?Acct:[id number] ? Age/Sex: 59 / M ?ADM Date: 07/04/24 ? Loc: HO.MAMMO ? Attending Dr: Maricarmen Winn EQUIPMENT MAINTENANCE TECHNICIAN ? Ordering Physician: Maricarmen Winn EQUIPMENT MAINTENANCE TECHNICIAN ?Results: ? Date of Service: 07/04/24 ?Follow Up: ? Procedure(s): XR DEXA axial skeleton ?? Accession Number(s): [id number] ? cc: Maricarmen Winn EQUIPMENT MAINTENANCE TECHNICIAN ? EXAMINATION: ??DXA BONE DENSITY AXIAL ? HISTORY: ??Estrogen deficiency ? TECHNIQUE: [employer] Dual energy absorptiometry (DEXA) ?? of the [...] the [employer]'s ?? [place] for Metabolic Bone Disease, a World Health Organization (WHO) ?? Collaborating Center. ? Electronically signed by: ??Garrick Murry MD ??07/04/2024 03:15 PM EST ?? RP ? Dictated By: ?Garrick Murry MD ? Signed By: ?<Electronically signed by Garrick Murry MD in OV> ?07/04/24 1515 ? DD/ 1350 ? TD/TT: 07/04/24 1422 ? Screening Unit Registered Nurse: ? Procedure Note Donarmaniter, Image - 07/04/2024 [facility] [address] [place] [address] Mammography Report Signed Patient: Kieran Palomo#: M [id number] : 1965Acct:[id number] Age/Sex: 59 / MADM Date: 07/04/24 Loc: [facility] Attending Dr: Maricarmen Winn EQUIPMENT MAINTENANCE TECHNICIAN Ordering Physician: Maricarmen Winnults: Date of Service: 07/04/24Follow Up: Procedure(s): XR DEXA axial skeleton Accession Number(s): [id number] cc: Maricarmen Winn EXAMINATION: DXA BONE DENSITY AXIAL HISTORY: Estrogen deficiency TECHNIQUE: [employer] Dual energy absorptiometry (DEXA) of the lumbar [...] of the [employer]'s [place] for Metabolic Bone Disease, a World Health Organization (WHO) Collaborating Center. Electronically signed by: Garrick Murry MD 07/04/2024 03:15 PM [facility] Dictated By: Garrick Murry MD Signed By: <Electronically signed by Garrick Murry MD in OV> 07/04/24 1515 DD/ 1350 TD/TT: 07/04/24 1422 Screening Unit Registered Nurse: [facility] EQUIPMENT MAINTENANCE TECHNICIAN IMG DXA PROCEDURES Final Resu lt documented [...] documented as of this encounter Care Teams Financial Legal Assistant Relationship Specialty Start Date End Date Maricarmen Winn FNP [address] [place] [address] PCP - General Family Medicine 07/13/22 documented as of this encounter
--- OUTSIDE RECORDS SUMMARY | 2024-07-11 17:22 | XMS_ITS | Encounter Summary ---
Author Organization [employer] Address 75 [facility] 7t [place] [address] Care Team Providers Care Bridge Contractor Name Role Phone [place] [facility] Primary Care Provider [phone] Reason for Visit * Reason Comments Med Refill Encounter Details Date Type Department Care Team ([facility] st Contact Info) Description 01/05/2024 Refill [facility] 230 [place], [place] [phone] [facility] 230 [place] [address] Essential hypertension Social History Tobacco Use Types [...] Description 07/24/2024 9:00 AM EST Office Visit [address] [address] Vasquez Farooq MD [address] [place] [address] 08/21/2024 2:30 PM EDT Office Visit [address] [address] Maricarmen Winn FNP [address] [place] [address] documented as of this encounter Goals Goal [...] documented as of this encounter Care Teams Bridge Contractor Relationship Specialty Start Date End Date Maricarmen Winn FNP [address] [place] [address] PCP - General Family Medicine 07/13/22 documented as of this encounter
--- OUTSIDE RECORDS SUMMARY | 2024-07-11 17:22 | XMS_ITS | Encounter Summary ---
Author Organization [employer] Address 75 [facility] 7t [place] [address] Care Team Providers Care Business Continuity Global Director Name Role Phone Maricarmen Winn BOUNTY TRAPPER Primary Care Provider [phone] Encounter Details Date Type Department Care Team [...] Description 07/24/2024 9:00 AM EST Office Visit [facility] [address] [place] [address] Vasquez Farooq MD [address] [place] [address] [phone] 08/21/2024 2:30 PM EDT Office Visit [address] [address] Maricarmen Winn FNP [address] [place] [address] documented as of this encounter Goals Goal [...] documented as of this encounter Care Teams Business Continuity Global Director Relationship Specialty Start Date End Date Maricarmen Winn FNP [address] [place] [address] PCP - General Family Medicine 07/13/22 documented as of this encounter
--- OUTSIDE RECORDS SUMMARY | 2024-07-11 17:22 | XMS_ITS | Encounter Summary ---
Author Organization [employer] Address 75 [facility] 7t [place] [address] Care Team Providers Care Tennis Desk Team Member Name Role Phone Maricarmen Winn COST ENGINEER Primary Care Provider [phone] Encounter Details Date Type Department Care Team [...] Description 07/24/2024 9:00 AM EST Office Visit [facility] [address] [place] [address] Vasquez Farooq MD [address] [place] [address] [phone] 08/21/2024 2:30 PM EDT Office Visit [address] [address] Maricarmen Winn FNP 230 [place] [address] documented as of this encounter Goals Goal [...] documented as of this encounter Care Teams Tennis Desk Team Member Relationship Specialty Start Date End Date Maricarmen Winn FNP [address] [place] [address] PCP - General Family Medicine 07/13/22 documented as of this encounter
--- OUTSIDE RECORDS SUMMARY | 2024-07-11 17:22 | XMS_ITS | Encounter Summary ---
Author Organization [employer] Address 75 [facility] 7t [place] [address] Care Team Providers Care Cut Off Saw Grader Name Role Phone Maricarmen Winn FINE ARTS CHAIR Primary Care Provider [phone] Reason for Visit * Reason Onset Date Comments Med Refill 06/21/2024 Encounter Details Date Type Department Care Team (Late st Contact Info) Description 06/21/2024 Refill [facility] 230 [place] [address] Shayy Baer RN Opioid dependence, uncomplicated (CMS/HCC) [...] Description 07/24/2024 9:00 AM EST Office Visit [facility] [address] [place] [address] Vasquez Farooq MD [address] [place] [address] 08/21/2024 2:30 PM EDT Office Visit [address] [address] Maricarmen Winn FNP [address] [place] [address] documented as of this encounter Goals Goal [...] documented as of this encounter Care Teams Cut Off Saw Grader Relationship Specialty Start Date End Date Maricarmen Winn FNP [address] [place] [address] PCP - General Family Medicine 07/13/22 documented as of this encounter
--- OUTSIDE RECORDS SUMMARY | 2024-07-11 17:22 | XMS_ITS | Encounter Summary ---
Author Organization [employer] Address 75 [facility] 7t [place] [address] Care Team Providers Care Taper Printed Circuit Layout Name Role Phone Maricarmen Winn PIPE SMOKING MACHINE OFFBEARER Primary Care Provider [phone] Reason for Visit * Reason Onset Date Comments Results 06/28/2024 Referral 06/28/2024 Encounter Details Date Type Department Care Team ([facility] st Contact Info) Description 06/28/2024 Telephone [facility] 230 [place], [place] [phone] Josephine Green RN Results; Referral Social History [...] AM EST Telephone call to pt using [employer] lathe operator #[id number]. Advised that MRI results showed compression fracture in the lower back which is relate to low bone density, advised him that PCP ordered DEXA scan to further evaluate bone density throughout the body. Also advised that MRI showed nerve rootcompression in his lower back so PCP made referral to neurosurgery at [facility]. Advised him that [facility] will reach out to schedule both appts in 1-2 weeks and letter will be sent out in the mail with information regarding the referrals. Pt verbalized understanding, no further questions. * Telephone Encounter - Josephine Green RN - 06/28/2024 9:12 AM EST ----- Message from [facility] sent at 06/26/2024 9:39 AM EST [...] low back as well--referral to neurosurgery at [facility] placed. Thank you! documented in this encounter Plan of Treatment Upcoming Encounters Date Type Department Care Team (Late st Contact Info) Description 07/24/2024 9:00 AM EST Office Visit [address] [address] Vasquez Farooq MD [address] [place] [phone] 08/21/2024 2:30 PM EDT Office Visit [facility] 230 [place] [address] Maricarmen Winn FNP 230 [place] [address] documented as of this encounter Goals Goal [...] documented as of this encounter Care Teams Taper Printed Circuit Layout Relationship Specialty Start Date End Date Maricarmen Winn FNP [address] [place] [address] PCP - General Family Medicine 07/13/22 documented as of this encounter
--- OUTSIDE RECORDS SUMMARY | 2024-07-11 17:23 | XMS_ITS | Encounter Summary ---
Author Organization [employer] Address 75 [facility] 7t [place] [address] Care Team Providers Care Executive Account Manager Name Role Phone Maricarmen Wnin ROBOTIC WELD TECHNICIAN Primary Care Provider [phone] Reason for Visit * Reason Comments Med Refill Encounter Details Date Type Department Care Team ([facility] st Contact Info) Description 02/07/2024 Refill [facility] 230 [place] [address] Vasquez Farooq MD 230 [place] [address] Opioid dependence, uncomplicated (CMS/HCC) Social History Tobacco [...] Description 07/24/2024 9:00 AM EST Office Visit [facility] [address] [place] [address] [phone] Vasquez Farooq MD [address] [place] [address] [phone] 08/21/2024 2:30 PM EDT Office Visit [address] [address] Maricarmen Winn FNP [address] [place] [address] documented as of this encounter Goals Goal [...] documented as of this encounter Care Teams Executive Account Manager Relationship Specialty Start Date End Date Maricarmen Winn FNP [address] [place] [address] PCP - General Family Medicine 07/13/22 documented as of this encounter
--- OUTSIDE RECORDS SUMMARY | 2024-07-11 17:23 | XMS_ITS | Encounter Summary ---
Author Organization [employer] Address 75 [facility] 7t [place] [address] Care Team Providers Care Nonprofit Fundraiser Name Role Phone Maricarmen Winn GENERAL INSPECTOR Primary Care Provider [phone] Encounter Details Date Type Department Care Team (Late st Contact Info) Description 07/09/2024 Telephone [facility] [address] [place], [place] [phone] Sherry Gaspar, RN Social History Tobacco Use Types Packs/Day Years [...] t he electric, gas, oil or water [employer] threatened to shut off services in your [...] encounter Miscellaneous Notes * Telephone Encounter - Sherry Gaspar RN - 07/09/2024 2:00 PM EST TC placed to pt via [employer] educational interpreter (Garrick ID#[id number]) to advise of PCP message, Please let patientknow that DEXA scan does confirm diagnosis of low bone density as we suspected because of the compression fractures in his back. Before determining next step since and/or treatment options I would like to check some labs. Orders were placed to lab. It would be best if he can complete the blood drawin the morning ideally before 9 AM. Once I get the lab results we will schedule a televisit to review findings and next steps. Thank you! Pt reports he has an appointment for his back on 07/11/24 to be put in a machine. Pt reports he has an appointment with Dr. Nino tomorrow morning. Pt states he will try to go and have labs drawn tomorrow morning. Pt verbalized understanding and denies questionsor concerns at this time. documented in this encounter Plan of Treatment Upcoming Encounters Date Type Department Care Team (Late st Contact Info) Description 07/24/2024 9:00 AM EST Office Visit [facility] [address] [place] [address] Vasquez Farooq MD [address] [place] [address] 08/21/2024 2:30 PM EDT Office Visit [facility] [address] [place] [address] Maricarmen Winn FNP [address] [place] [address] documented as of this encounter Goals Goal [...] documented as of this encounter Care Teams Nonprofit Fundraiser Relationship Specialty Start Date End Date Maricarmen Winn FNP 230 [place] [address] PCP - General Family Medicine 07/13/22 documented as of this encounter
--- OUTSIDE RECORDS SUMMARY | 2024-07-11 17:23 | XMS_ITS | Encounter Summary ---
Author Organization [employer] Address 75 [facility] 7t [place] [address] Care Team Providers Care Jewelry Sales Representative Name Role Phone Maricarmen Winn WASTE HAND Primary Care Provider [phone] Encounter Details Date Type Department Care Team (Latest Contact Info) Description 07/10/2024 Travel Social History Tobacco Use Types Packs/Day [...] Description 07/24/2024 9:00 AM EST Office Visit [facility] [address] [place] [address] Vasquez Farooq MD [address] [place] [address] [phone] 08/21/2024 2:30 PM EDT Office Visit [address] [address] Maricarmen Winn FNP 230 [place] [address] documented as of this encounter Goals Goal [...] documented as of this encounter Care Teams Jewelry Sales Representative Relationship Specialty Start Date End Date Maricarmen Winn FNP [address] [place] [address] PCP - General Family Medicine 07/13/22 documented as of this encounter
--- OUTSIDE RECORDS SUMMARY | 2024-07-11 17:23 | XMS_ITS | Encounter Summary ---
Author Organization [employer] Address 75 [facility] 7t [place] [address] Care Team Providers Care Technical Communicator Name Role Phone [facility] Primary Care Provider [phone] Encounter Details Date Type Department Care Team (Late st Contact Info) Description 07/09/2024 Orders Only [facility] [address] [place], [place] [phone] [facility] [address] [place] [address] Osteoporosis with current pathological fracture, unspecified osteoporosis type, initial encounter (Primary Dx); Disorder of bone density and structure, unspecified Social History Tobacco Use Types Packs/Day Years [...] 07/24/2024 9:00 AM EST Office Visit [facility] [address] [place] [address] Vasquez Farooq MD [address] [place] [address] 08/21/2024 2:30 PM EDT Office Visit [address] [address] Scheduled Orders Name Type Priority Associated Diagnoses Orde r Schedule Protein Electrophoresis and [place]/Lambda Light Chains Lab Routine Osteoporosis with current pathological fracture, unspecified osteoporosis type, initial encounter Expected: 07/09/2024 (Approximate), Expires: 07/09/2025 Testosterone, Total, males (Adult), [place] Lab Routine Osteoporosis with current pathological fracture, unspecified osteoporosis type, initial encounter Expected: 07/09/2024, Expires: 07/09/2025 documented as of this encounter Goals Goal Patient Goal Type Associated Problems Recent Progress Patient-Stated? Author Blood Pressure < 140/90 Blood Pressure 141/93( 024 1:41 PM EST) No Fallon Pizarro PharmD documented as of this encounter Procedures Procedure Name Priority Date/Time Associated Diagnosis Comments VITAMIN D,25-OH,TOTAL,IA Routine 07/10/2024 6:59 AM EST Osteoporosis with current pathological fracture, unspecified osteoporosis type, initial encounter Disorder of bone density and structure, unspecified CBC WITH AUTO DIFFERENTIAL Routine 07/10/2024 6:59 AM EST Osteoporosis with current pathological fracture, unspecified osteoporosis type, initial encounter PHOSPHATE ( PHOSPHORUS) Routine 07/10/2024 6:59 AM EST Osteoporosis with current pathological fracture, unspecified osteoporosis type, initial encounter PTH, INTACT WITHOUT CALCIUM Routine 07/10/2024 6:59 AM EST Osteoporosis with current pathological fracture, unspecified osteoporosis type, initial encounter MAGNESIUM Routine 07/10/2024 6:59 AM EST Osteoporosis with current pathological fracture, unspecified osteoporosis type, initial encounter COMPREHENSIVE METABOLIC PANEL Routine 07/10/2024 6:59 AM EST Osteoporosis with current pathological fracture, unspecified osteoporosis type, initial encounter documented in this encounter Results * (ABNORMAL) Comprehensive Metabolic Panel (07/10/2024 6:59 AM EST) Sodium 137 135 - 145 mmol/L [facility] Potassium 4.3 3.3 - 5.1 mmol/L [facility] Chloride 103 96 - 108 mmol/L [facility] Carbon Dioxide 26 22 - 29 mmol/L [facility] Anion Gap 12 12 - 20 [facility] Urea Nitrogen (BUN) 13 9 - 16 mg/dL [facility] Creatinine, Serum 0.79 0.5 - 1.4 mg/dL [facility] Estimated Glomerular Filt Rate >60 [facility] Comment:Chronic Kidney Disea se: Estimated GFR < 60 mL/min/1.17e3Sdclkp Kidney Disease: Estimated GFR < 15 mL/min/1.73m2 Glucose 160(H) 60 - 115 mg/dL [facility] Calcium 9.3 8.4 - 10.2 mg/dL [facility] Bilirubin, Total 0.8 0.0 - 1.0 mg/dL [facility] Aspartate Amino Transferase 34 5 - 37 U/L [facility] Alanine Aminotransferase 37 0 - 40 U/L [facility] Total Protein 8.2(H) 6.5 - 8.0 g/dL [facility] Albumin Level 4.3 3.5 - 5.0 g/dL [facility] Alkaline Phosphatase 91 39 - 117 U/L [facility] Blood Venous blood specimen / Unknown 07/10/2024 6:59 AM EST 07/10/2024 6:59 AM EST [facility] LAB BLOOD ORDERABLES Final Re sult [facility] [address] [place] [phone] * (ABNORMAL) Vitamin D, 25-Hydroxy, Total, Immunoassay (07/10/2024 6:59 AM EST) Vitamin D 25-OH Total 10.1(L) >30 ng/mL [facility] Comment:Health Based Referen ce Values*< 20 ng/mL Dmnwxfgse25-36 ng/mL Insufficient> 30 ng/mL Sufficient*Junito HO. N [...] 6:59 AM EST 07/10/2024 6:59 AM EST [facility] LAB BLOOD ORDERABLES Final Re sult Performing Organization Address [facility]/ZIP Co de Phone Number [facility] [address] [place] [phone] * Magnesium (07/10/2024 6:59 AM EST) Pathologist [facility] Magnesium 1.9 1.6 - 2.6 mg/dL [facility] Blood Venous blood specimen / Unknown 07/10/2024 6:59 AM EST 07/10/2024 6:59 AM EST [facility] LAB BLOOD ORDERABLES Final Re sult Performing Organization Address [facility] Co de Phone Number [facility] [address] [place] [phone] * Phosphate (As Phosphorus) (07/10/2024 6:59 AM EST) [facility] Phosphorus 3.2 2.7 - 4.5 mg/dL [facility] Blood Venous blood specimen / Unknown 07/10/2024 6:59 AM EST 07/10/2024 6:59 AM EST [facility] LAB BLOOD ORDERABLES Final Re sult Performing Organization Address [facility] Co de Phone Number [facility] [address] [place] [phone] * (ABNORMAL) CBC auto differential (07/10/2024 6:59 AM EST) [facility] White Blood Count 6.4 4.8 - 10.8 X10*3/uL [facility] Red Blood Count 4.41(L) 4.60 - 5.80 X10*6/uL [facility] Hemoglobin 13.0(L) 14.0 - 18.0 g/dl [facility] Hematocrit 39.4(L) 42.0 - 52.0 % [facility] Mean Corpuscular Volume 89.3 80.0 - 98.0 fL [facility] Mean Corpuscular Hemoglobin 29.5 27.0 - 33.0 pg [facility] Mean Corpuscular HGB Conc 33.0 31.0 - 36.0 g/dl [facility] Red Cell Distribution Width 11.9 11.0 - 16.0 % [facility] Platelet Count 186 160 - 400 X10*3/uL [facility] Mean Platelet Volume 10.1 9.4 - 12.4 fL [facility] Neutrophils Percent Auto 54.7 45 - 73 % [facility] Imm Gran Pct Auto 0.9(H) 0.0 - 0.4 % [facility] Lymphocytes Percent Auto 25.7 20 - 40 % [facility] Monocytes Percent Auto 12.8(H) 2 - 11 % [facility] Eosinophils Percent Auto 5.3(H) 0 - 4 % [facility] Basophils Percent Auto 0.6 0 - 2 % [facility] NRBC Pct Auto 0.0 0.0 - 0.2 /100WBC [facility] Neutrophils Absolute Auto 3.5 2.0 - 8.3 x10*3/uL [facility] Imm Gran Abs Auto 0.06(H) 0.00 - 0.03 X10*3/uL [facility] Lymphocytes Absolute Auto 1.7 1.2 - 4.9 X10*3/uL [facility] Monocytes Absolute Auto 0.8 0.1 - 1.2 X10*3/uL [facility] Eosinophils Absolute Auto 0.3 0.0 - 0.4 X10*3/uL [facility] Basophils Absolute Auto 0.0 0.0 - 0.2 X10*3/uL [facility] NRBC Abs Auto 0.000 0.0 - 0.012 X10*3/uL [facility] Blood Venous blood specimen / Unknown 07/10/2024 6:59 AM EST 07/10/2024 6:59 AM EST [facility] BLOOD ORDERABLES Final Re sult Performing Organization Address City/[facility]/ZIP Co de Phone Number [facility] [address] [place] [address] [phone] * (ABNORMAL) PTH, Intact Without Calcium (07/10/2024 6:59 AM EST) Parathyroid Hormone, Intact 100.9(H) 8.7 - 77.1 pg/mL [facility] Blood Venous blood specimen / Unknown 07/10/2024 6:59 AM EST 07/10/2024 6:59 AM EST [facility] LAB BLOOD ORDERABLES Final Re sult Performing Organization Address [facility] Co de Phone Number [facility] [address] [place] [address] [phone] documented in this encounter Visit Diagnoses Diagnosis Osteoporosis with current pathological fracture, unspecified osteoporosis type, initial encounter- Primary Disorder of bone density and structure, unspecified documented in this encounter Additional Health Concerns Assessment Noted Time PHQ-9 Depression Total Score: 0 03/27/20 24 2:26 PM EDT documented as of this encounter Care Teams Technical Communicator Relationship Specialty Start Date End Date Maricarmen Winn FNP [address] [place] [address] PCP - General Family Medicine 07/13/22 documented as of this encounter
--- OUTSIDE RECORDS SUMMARY | 2024-07-11 17:23 | XMS_ITS | Encounter Summary ---
Author Organization [employer] Address [address] [employer] 7t [place] [address] Care Team Providers Care Framing Machine Tender Name Role Phone Maricarmen Winn CARE ADMINISTRATIVE TECH Primary Care Provider [phone] Reason for Visit * Reason Comments RC Recovery Supports Encounter Details Date Type Department Care Team (Late st Contact Info) Description 07/10/2024 Patient Outreach [facility] [address] [place] [address] Fabian Harris Recovery Supports Social History Tobacco Use Types Packs/Day Years [...] is your housing situation today? I have mickeymichael salazar 03/19/[address] you [...] as of this encounter Progress Notes * Fabian Harris - 07/10/2024 3:38 PM EST I met with Kieran today. Setting: in person at [facility] Recovery Wellness Goals worked on: Social Stability Action taken/next steps: Attended recovery support group and Offered person centered recovery support Additional comments: NAOMIE Harris documented in this encounter Plan of Treatment Upcoming Encounters Date Type Department Care Team (Late st Contact Info) Description 07/24/2024 9:00 AM EST Office Visit [facility] [address] [place] [address] Vasquez Farooq MD [address] [place] [address] 08/21/2024 2:30 PM EDT Office Visit [facility] [address] [place] [address] [place] FNP [address] [place] [address] documented as of this encounter Goals Goal [...] documented as of this encounter Care Teams Framing Machine Tender Relationship Specialty Start Date End Date Tatum MINDY Hernadez [address] [place] [address] PCP - General Family Medicine 07/13/22 documented as of this encounter
--- OUTSIDE RECORDS SUMMARY | 2024-07-11 17:23 | XMS_ITS | Encounter Summary ---
Author Organization [employer] Address 75 [facility] 7t [place] [address] Care Team Providers Care Medtronics Technician Name Role Phone Maricarmen Winn PROGRAM RESEARCH SPECIALIST Primary Care Provider [phone] Reason for Visit * Reason Comments GBAT Encounter Details Date Type Department Care Team (Latest Contact Info) Description 06/26/2024 9:00 AM EST Office Visit [facility] [address] [place], [place] [phone] Vasquez Farooq MD [address] [place], [place] [phone] Opioid dependence, uncomplicated (CMS/HCC) (Primary Dx) Social [...] Following staff present at the visit: Physician, Hot Dip Tinning Supervisor, Clinician, Team RN, and MedicalAssistant Opportunities [...] Following staff present at the visit: Physician, Hot Dip Tinning Supervisor, Clinician, Team RN, and MedicalAssistant Opportunities [...] faced situations that may trigger use Mass PAPER CONTROL CLERK reviewed Following staff present at the visit: Physician, Team RN, Clinician, Hot Dip Tinning Supervisor and Automotive Electrical Fitter Follow up in 1 week for the [...] Description 07/24/2024 9:00 AM EST Office Visit [facility] [address] [place] [address] Vasquez Farooq MD [address] [place] [address] 08/21/2024 2:30 PM EDT Office Visit [facility] [address] [place] [address] TatmuMaricarmen carmonaMINDY [address] [place] [address] documented as of this encounter Goals Goal Patient Goal Type Associated Problems Recent Progress Patient-Stated? Author Blood Pressure < 140/90 Blood Pressure 141/93( 024 1:41 PM EST) No Fallon Pizarro, PharmD documented as of this encounter Procedures Procedure Name Priority Date/Time Associated Diagnosis Comments POCT MEA-14 URINE DRUG SCREEN Routine 06/26/2024 9:20 AM [...] documented as of this encounter Care Teams Medtronics Technician Relationship Specialty Start Date End Date Maricarmen WinnMINDY [address] [place] [address] PCP - General Family Medicine 07/13/22 documented as of this encounter
--- OUTSIDE RECORDS SUMMARY | 2024-07-11 17:23 | XMS_ITS | Encounter Summary ---
Author Organization [employer] Address 75 [facility] 7t [place] [address] Care Team Providers Care Slicing Machine Operator/Tender Name Role Phone Maricarmen Winn PUMP OILER Primary Care Provider [phone] Reason for Visit * Reason Comments GBAT Encounter Details Date Type Department Care Team (Latest Contact Info) Description 07/10/2024 9:00 AM EST Office Visit [facility] [address] [place], [place] [phone] Vasquez Farooq MD [address] [place], [place] [phone] Opioid dependence, uncomplicated (CMS/HCC) (Primary Dx) Social [...] Progress Notes * Vasquez Farooq MD - 07/10/2024 9:00 AM EST Patient on current Suboxone dose of 24mg/6mg on a 4-week schedule. Patient has been in the program for 3 years 11 months. Induction date: 08/06/2020. LFTs done 04/18/2023. Patient enrolled in behavioral health services, therapist Gayle. DANISHA BAEZA reviewed by provider. Last PCP appt 06/30/2023. LAST GBAT VISIT 07/03/2024 Patient presents for Group-Based Opioid Treatment for OUD Reviewed the group goals, expectations and policies Consented to the group treatment options Actively participated in the group discussion with the topic of: Values in Recovery Following staff present at the visit: Physician, Overhauler Bus Truck, Clinician, Team RN, and MedicalAssistant Opportunities provided to address individual medical/medication/BH concerns States doing well without cravings or relapse TODAY GBAT VISIT 07/10/2024 Patient presents for Group-Based Opioid Treatment for OUD Reviewed the group goals, expectations and policies Consented to the group treatment options Actively participated in the group discussion with the topic of: Extended Check-In Following staff present at the visit: Physician, Overhauler Bus Truck, Clinician, Team RN, and MedicalAssistant Opportunities provided [...] faced situations that may trigger use Mass CLOTH COVERED HELMET PULLER reviewed Following staff present at the visit: Physician, Team RN, Clinician, Overhauler Bus Truck and Loss Prevention Agent Follow up in 1 week for the [...] Description 07/24/2024 9:00 AM EST Office Visit [address] [address] Vasquez Farooq MD [address] [place] [address] 08/21/2024 2:30 PM EDT Office Visit [address] [address] Maricarmen Winn FNP [address] [place] [address] documented as of this encounter Goals Goal [...] documented as of this encounter Care Teams Slicing Machine Operator/Tender Relationship Specialty Start Date End Date Maricarmen Winn FNP [address] [place] [address] PCP - General Family Medicine 07/13/22 documented as of this encounter
--- OUTSIDE RECORDS SUMMARY | 2024-07-11 17:23 | XMS_ITS | Encounter Summary ---
Author Organization [employer] Address 75 [facility] 7t [place] [address] Care Team Providers Care Respiratory Scientist Name Role Phone Maricarmen Winn SPRING ASSEMBLER Primary Care Provider [phone] Encounter Details Date Type Department Care Team [...] Description 07/24/2024 9:00 AM EST Office Visit [facility] [address] [place] [address] Vasquez Farooq MD [address] [place] [address] [phone] 08/21/2024 2:30 PM EDT Office Visit [address] [address] Maricarmen Winn FNP [address] [place] [address] documented as of this encounter Goals Goal [...] documented as of this encounter Care Teams Respiratory Scientist Relationship Specialty Start Date End Date Maricarmen Winn FNP [address] [place] [address] PCP - General Family Medicine 07/13/22 documented as of this encounter
--- OUTSIDE RECORDS SUMMARY | 2024-07-11 17:23 | XMS_ITS | Encounter Summary ---
Author Organization [employer] Address 75 [facility] 7[address] [place] [address] Care Team Providers Care Scale Balancer Name Role Phone [place] [facility] Primary Care Provider [phone] Reason for Visit * Reason Comments Med Refill Encounter Details Date Type Department Care Team ([facility] st Contact Info) Description 03/01/2024 Refill [facility] [address] [place], [place] [phone] [facility] [address] [place] [address] Essential hypertension Social History Tobacco Use Types [...] with others, in a hotel, in a intermediate, living outside on the street, on a [...] Description 07/24/2024 9:00 AM EST Office Visit [address] [address] Vasquez Farooq MD [address] [place] [address] 08/21/2024 2:30 PM EDT Office Visit [address] [address] Maricarmen Winn FNP [address] [place] [address] documented as of this encounter Goals Goal [...] documented as of this encounter Care Teams Scale Balancer Relationship Specialty Start Date End Date Maricarmen Winn FNP [address] [place] [address] PCP - General Family Medicine 07/13/22 documented as of this encounter
== END 2024-07-11 14:45 | disposition home or self-care (01) ==
PROVIDERS: PCP Registered Nurse; Referring Provider Registered Nurse; Visit Provider Physician Assistant
DX: M54.9 Dorsalgia, unspecified (principal)
CPT/HCPCS: 99204

== ENCOUNTER → 2024-07-11 13:29 | Outpatient (BNVA) | payer MEDICARE, MEDICAID, SELFPAY | PROVIDERS: PCP Registered Nurse; Referring Provider Registered Nurse; Visit Provider Physician Assistant | DX: M54.9 Dorsalgia, unspecified (principal) | CPT/HCPCS: 99202 ==

== ENCOUNTER 2024-08-08 10:38 | Outpatient (RCR) | payer MEDICARE, MEDICAID, SELFPAY ==
--- NOTE | 2024-07-23 13:46 | MHC.PT.EP ---
[facility] [place] Office [place] Office [place] Office [address] Nanette [place] [address] [phone] F: [phone] F: [phone] F: [phone] F: [phone] Physical Therapy Plan of Care Date of Evaluation: 07/23/24 Date of Surgery: NA Diagnosis: DORSALGIA BACK PAIN, SEVERE DDD L3-4, L4-5, LUMBAR RADICULOPATHY FU WITH JIMMY IN SEPTEMBER Assessment: Pt IS 59 YO M [facility] WITH LUMBAR DDD. 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 PRESENTS WITH LIMITED TRUNK AND LE FLEXIBILITY AND WEAK CORE MMS. SHOULD BENEFIT FROM PT TO ADDRESS THESE ISSUES Frequency and Duration: The patient will be seen 2X/WK X 6 WKS Short Term Goals: 1. INCREASED AWARENESS BACK CARE AND POSTURE 2. CENTRALIZE SXS (LESS R LE SXS) 3. IMPROVED SLEEP Paralegal Internship Goals: 1. I HEP WITH DC EX PLAN 2. DECREASED BACK PAIN AT LEAST 50% WITH ADLS Treatment Plan: Modalities to reduce pain, spasms and effusion. Manual therapy to restore motion and function. Therapeutic exercise to improve strength and flexibility. Neuromuscular re-education for posture and balance. Therapeutic activities to return to functional activities of daily living. Electronically signed by: LORENE CASON PT Please sign and return to therapist. Thank you for your referral.
--- NOTE | 2024-08-27 11:57 | MHC.PT.DC ---
[facility] [place] Office [place] Office [place] Office [address] Nanette [place] [address] [phone] F: [phone] F: [phone] F: [phone] F: [phone] Physical Therapy Discharge Report Diagnosis: DORSALGIA BACK PAIN, SEVERE DDD L3-4, L4-5, LUMBAR RADICULOPATHY FU WITH PA IN SEPTEMBER Date of Surgery: NA Date of Evaluation: 07/23/24 Date of Discharge: 08/27/24 Treatments to Date: 3 Cancellations to Date: No Shows to Date: Discharge Status: Visit Non-compliance Discharge Summary: Pt WAS SEEN FOR INIT EVAL AND 2 VISITS, THEN NO SHOWED X 5 Electronically signed by: LORENE CASON PT Please sign and return to therapist. Thank you for your referral.
== END 2024-08-27 11:57 | disposition home or self-care (01) ==
LOC: HO.PT 10:38
PROVIDERS: PCP Registered Nurse; Visit Provider Physician Assistant
DX: M54.9 Dorsalgia, unspecified (principal); M51.16 Intervertebral disc disorders with radiculopathy, lumbar region
CPT/HCPCS: 97110; 97161; 97535

== ENCOUNTER 2024-09-10 13:08 | Outpatient (REF) | payer MEDICARE, MEDICAID, SELFPAY ==
--- OUTSIDE RECORDS SUMMARY | 2024-09-10 15:27 | XMS_ITS | Encounter Summary ---
Author Organization [employer] Address 75 [facility] [address], [place] [address] Care Team Providers Care Horse Show Judge Name Role Phone Maricarmen Winn INSTRUMENTATION AND CONTROLS TECHNICIAN Primary Care Provider [phone] Reason for Visit * Reason Comments Med Refill Encounter Details Date Type Department Care Team ([facility] st Contact Info) Description 02/07/2024 Refill [facility] [address] [place] [address] Vasquez Farooq MD [address] [place] [address] Opioid dependence, uncomplicated (CMS/HCC) Social History Tobacco [...] Care Team (Late st Contact Info) Description 09/18/2024 9:00 AM EDT Office Visit [facility] MED[facility]INE [address] [place] [address] Vasquez Farooq MD [address] [place] [address] 11/18/2024 1:45 PM EDT Office Visit [address] [address] Maricarmen Winn FNP [address] [place] [address] documented as of this encounter Goals Goal Patient Goal Type Associated Problems Recent Progress Patient-Stated? Author Blood Pressure < 140/90 Blood Pressure 132/78( 025 2:27 PM EDT) No Fallon Pizarro, PharmD documented as of this encounter Visit Diagnoses Diagnosis Opioid dependence, uncomplicated (CMS/HCC) documented in this encounter Additional Health Concerns Assessment Noted Time PHQ-9 Depression Total Score: 0 03/22/20 23 2:46 PM EDT documented as of this encounter Care Teams Horse Show Judge Relationship Specialty Start Date End Date Maricarmen Winn FNP [address] [place] [address] PCP - General Family Medicine 07/13/22 documented as of this encounter
--- OUTSIDE RECORDS SUMMARY | 2024-09-10 15:27 | XMS_ITS | Encounter Summary ---
Author Organization [employer] Address 75 [facility] [address], [place] [address] Care Team Providers Care Sheet Heater Helper Name Role Phone Maricarmen Winn [facility] Primary Care Provider Reason for Visit * Reason Comments Med Refill Encounter Details Date Type Department Care Team ([facility] st Contact Info) Description 03/01/2024 Refill [facility] [address] [place], [place] [phone] [place] [facility] [address] [place] [address] Essential hypertension Social History Tobacco Use Types [...] with others, in a hotel, in a chcf, living outside on the street, on a [...] Description 09/18/2024 9:00 AM EDT Office Visit [address] [address] Vasquez Farooq MD [address] [place] [address] 11/18/2024 1:45 PM EDT Office Visit [address] [address] Maricarmen Winn FNP [address] [place] [address] documented as of this encounter Goals Goal [...] documented as of this encounter Care Teams Sheet Heater Helper Relationship Specialty Start Date End Date Maricarmen Winn FNP [address] [place] [phone] PCP - General Family Medicine 07/13/22 documented as of this encounter
--- OUTSIDE RECORDS SUMMARY | 2024-09-10 15:27 | XMS_ITS | Encounter Summary ---
Author Organization [employer] Address [address] [facility] [facility] [address] [place] [address] Care Team Providers Care Retort Furnace Operator Name Role Phone Maricarmen Winn ASSESSMENT TECHNICIAN Primary Care Provider [phone] Encounter Details Date Type Department Care Team (Late st Contact Info) Description 04/28/2023 Abstract [facility] [address] [place] [address] Nano Sandoval Social History Tobacco Use Types [...] with others, in a hotel, in a half-way, living outside on the street, on a [...] Description 09/18/2024 9:00 AM EDT Office Visit [facility] [address] [place] [phone] Vasquez Farooq MD [address] [place] [phone] 11/18/2024 1:45 PM EDT Office Visit [facility] [address] [place] [phone] Maricarmen Winn FNP [address] [place] [address] documented as of this encounter Goals Goal [...] documented as of this encounter Care Teams Retort Furnace Operator Relationship Specialty Start Date End Date Maricarmen Winn FNP [address] [place] [phone] PCP - General Family Medicine 07/13/22 documented as of this encounter
--- OUTSIDE RECORDS SUMMARY | 2024-09-10 15:27 | XMS_ITS | Encounter Summary ---
Author Organization [employer] Address [address] [facility] [address] [address] Care Team Providers Care Family Services Coordinator Name Role Phone Maricarmen Winn [facility] Primary Care Provider [phone] Reason for Visit * Reason Comments Med Refill Encounter Details Date Type Department Care Team ([facility] Contact Info) Description 01/05/2024 Refill [facility] [address] [place], [place] [phone] MikadoMaricarmen [facility] [address] [place] [address] Essential hypertension Social History Tobacco Use Types [...] with others, in a hotel, in a snf, living outside on the street, on a [...] Description 09/18/2024 9:00 AM EDT Office Visit [address] [address] Vasquez Farooq MD [address] [place] [phone] 11/18/2024 1:45 PM EDT Office Visit [address] [address] Maricarmen Winn FNP [address] [place] [phone] documented as of this encounter Goals Goal [...] documented as of this encounter Care Teams Family Services Coordinator Relationship Specialty Start Date End Date Maricarmen Winn FNP [address] [place] [phone] PCP - General Family Medicine 07/13/22 documented as of this encounter
--- OUTSIDE RECORDS SUMMARY | 2024-09-10 15:27 | XMS_ITS | Encounter Summary ---
Author Organization [employer] Address [address] [facility] [address] [place] [address] Care Team Providers Care Stock Mover Name Role Phone Maricarmen Winn INDUSTRIAL HYGIENE MANAGER Primary Care Provider [phone] Encounter Details Date Type Department Care Team (Late st Contact Info) Description 08/01/2023 Orders Only [facility] [address] [place] [address] Shayy Baer RN Uncomplicated opioid dependence (CMS/HCC) [...] with others, in a hotel, in a correction, living outside on the street, on a [...] Description 09/18/2024 9:00 AM EDT Office Visit [facility] [address] [place] [phone] Vasquez Farooq MD [address] [place] [phone] 11/18/2024 1:45 PM EDT Office Visit [facility] [address] [place] [address] Maricarmen Winn FNP [address] [place] [phone] documented as of this encounter Goals Goal [...] documented as of this encounter Care Teams Stock Mover Relationship Specialty Start Date End Date Maricarmen Winn FNP [address] [place] [phone] PCP - General Family Medicine 07/13/22 documented as of this encounter
--- OUTSIDE RECORDS SUMMARY | 2024-09-10 15:27 | XMS_ITS | Encounter Summary ---
Author Organization [employer] Address [address] [facility] [place] [address] Care Team Providers Care Middle [employer] Assistant Principal Name Role Phone Maricarmen Winn [facility] Primary Care Provider [phone] Encounter Details Date Type Department Care Team ([facility] st Contact Info) Description 08/14/2024 Telephone [facility] [address] [place], [place] [phone] Maricarmen Winn [facility] [address] [place] [address] Social History Tobacco Use Types Packs/Day Years [...] with others, in a hotel, in a penitentiary, living outside on the street, on a beach, in a car, or in a park 08/14/[address] you li ve. Do you have problems with any of the following? None of the above 08/14/2024 Food Insecurity Answer Date Recorded Within the past 12 months, y ou worried that your food would run out before you got money to buy more: Often true 08/14/2024 Within the past 12 months,th e food you bought just didn't last and you didn't have enough money to get more: Often true 10/2024 Transportation Answer Date Recorded In the past [...] Access Answer Date Recorded Internet Access Q1 No 08/14/2024 Internet Access Q2 I do not want or need it 10/2024 Sex and Gender Information Value Date Recorded Sex Assigned at Male 04/11/2022 10:19 AM EDT Legal Sex Male 10:19 AM EDT Gender Identity Male 04/11/2022 10:19 AM EDT Sexual Orientation Straight 04/11/2022 10 :19 AM EDT documented as of this encounter Miscellaneous Notes * Telephone Encounter - MINDY Mars - 08/14/2024 4:54 PM EST ----- Message from Maricarmen Winn sent at 08/14/2024 9:56 AM EST ----- OSTEOPOROSIS documented in this encounter Plan of Treatment Upcoming Encounters Date Type Department Care Team (Late st Contact Info) Description 09/18/2024 9:00 AM EDT Office Visit [facility] [address] [place] [phone] Vasquez Farooq MD [address] [place] [phone] 11/18/2024 1:45 PM EDT Office Visit [facility] [address] [place] [phone] Maricarmen Winn FNP [address] [place] [address] documented as of this encounter Goals Goal [...] documented as of this encounter Care Teams Middle [employer] Assistant Principal Relationship Specialty Start Date End Date Maricarmen Winn FNP [address] [place] [phone] PCP - General Family Medicine 07/13/22 documented as of this encounter
--- OUTSIDE RECORDS SUMMARY | 2024-09-10 15:27 | XMS_ITS | Clinical Summary ---
Author Organization [employer] Address [address] [facility] 7[address] [place] [address] Care Team Providers Care Sample Clerk Name Role Phone Maricarmen Winn DOG CATCHER Primary Care Provider [phone] Allergies No known active allergies Medications naloxone (Narcan) 4 mg/0.1 mL nasal spray Administer 0.1 mL into affected nostril(s) if needed. Engadine 0.1 mL by intranasal route in one [...] MOUTH EVERYDAY AT NOON 90 tablet 3 06/23/2 024 Active thiamine (Vitamin B-1) 100 MG [...] if needed for mild pain. 30 tablet 024 Active omeprazole (PriLOSEC) [address] capsuleIndication [...] day. 30 tablet 11 024 2024 Active cholecalciferol (Vitamin D-3) 1.25 MG (32033 UT) capsuleIndication s:Vitamin D deficiency Take 1 capsule (50,000 Units) by mouth 1 (one) time per week. For 8 weeks 8 capsule 025 Active Suboxone 8-2 MG SL filmIndications:O pioid dependence, uncomplicated (CMS/HCC) Place 3 Film under the tongue Once per day for 28 days. Do not start before August 21, 2024. 84 Film 025 2024 Active Suboxone 8-2 MG SL filmIndications:O pioid dependence, uncomplicated (CMS/HCC) Place 3 Film under the tongue Once per day for 28 days. Do not start before July 24, 2024. 84 Film 025 2024 Discontinued(R eorder (will not trigger notification [...] ?? Followed by therapy and psychiatry at [facility] ?? Escitalopram and clonidine Essential hypertension [...] Encounters Date Type Department Care Team Description 09/04/2024 9:00 AM EDT Office Visit [facility] [address] [place] [address] Vasquez Farooq MD Opioid dependence, uncomplicated (CMS/HCC) (Primary Dx) 09/04/2024 Travel 08/21/2024 2:30 PM EDT Office Visit [facility] [address] [place] [address] Maricarmen Winn, DOG CATCHER Osteoporosis with current pathological fracture, unspecified osteoporosis type, initial encounter (Primary Dx); Vitamin D deficiency; Dietary counseling; Exercise counseling; Class 2 severe obesity due to excess calories with serious comorbidity and body mass index (BMI) of 35.0 to 35.9 in adult (CMS/HCC) 08/21/2024 9:00 AM EDT Office Visit [facility] [address] [place] [phone] Vasquez Farooq MD Opioid dependence, uncomplicated (CMS/HCC) (Primary Dx) 08/21/2024 Travel 08/15/2024 Patient Outreach [facility] [address] [place] [phone] [place] Maricarmen [facility] Care Coordination (CHW outreach for SDOH housing search-referral completed ) 08/14/2024 9:00 AM EST Office Visit [address] [address] Vasquez Farooq MD Opioid dependence, uncomplicated (CMS/HCC) (Primary Dx) 08/14/2024 Telephone [facility] [address] [place] [phone] [place] [facility] 08/14/2024 Refill [facility] [address] [place] [phone] Shayy Baer, CLAUDIA Opioid dependence, uncomplicated ([facility]/HCC) 08/14/2024 Patient Outreach [address] [address] [place] [facility] Planning ((SDOH screening positive tobacco screening positive)) 08/14/2024 Travel 07/24/2024 9:00 AM EST Office Visit [address] [address] Vasquez Farooq MD Opioid dependence, uncomplicated (CMS/HCC) (Primary Dx) 07/19/[address] [address] [place] [facility] Televisit 07/19/2024 Travel 07/17/2024 9:00 AM EST Office Visit [address] [address] Vasquez Farooq MD Opioid dependence, uncomplicated ([facility]/HCC) (Primary Dx) 07/17/[address] [address] Shayy Baer, CLAUDIA Opioid dependence, uncomplicated (CMS/HCC) 07/17/2024 Travel 07/16/[address] [address] Sho Ramos, RN Results 07/15/2024 Orders Only [facility] [address] [place] [address] [facility] Vitamin D deficiency (Primary Dx) 07/10/2024 9:00 AM EST Office Visit [address] [address] Vasquez Farooq MD Opioid dependence, uncomplicated (CMS/HCC) (Primary Dx) 07/10/2024 Patient Outreach [address] [address] Fabian Harris Recovery Supports 07/10/2024 Travel 07/09/[address] [address] Sherry Gaspar, CLAUDIA 07/09/2024 Orders Only [facility] [address] [place] [address] [facility] Osteoporosis with current pathological fracture, unspecified osteoporosis type, initial encounter (Primary Dx); Disorder of bone density and structure, unspecified 07/03/2024 9:00 AM EST Office Visit [address] [address] Vasquez Farooq MD Opioid dependence, uncomplicated (CMS/HCC) (Primary Dx) 07/03/2024 Travel 06/28/[address] [address] Josephine Cuello, RN Results; Referral 06/26/2024 9:00 AM EST Office Visit [address] [address] Vasquez Farooq MD Opioid dependence, uncomplicated (CMS/HCC) (Primary Dx) 06/26/2024 Orders Only [facility] [address] [place] [phone] [facility], DOG CATCHER Age-related osteoporosis with current pathological fracture, initial encounter (Primary Dx); Age-related osteoporosis with current pathological fracture, vertebra(e), initial encounter for fracture ([facility]); Lumbar nerve root compression 06/26/2024 Travel 06/21/2024 Refill [facility] [address] [place] [address] Shayy Baer RN Opioid dependence, uncomplicated ([facility]/HCC) 06/19/2024 9:00 AM EST Office Visit [facility] [address], [place] [phone] Vasquez Farooq MD Opioid dependence, uncomplicated ([facility]) (Primary Dx) 06/19/2024 Travel from Last 3 Months Immunizations Name [...] alcohol) beer and rum almost every day Alcohol Answer Date Recorded How often do you have a drink containing alcohol ? 3 08/21/2024 How many drinks containing a lcohol do you have on a typical day when you are drinking? 0 08/21/2024 How often do you have six or more drinks on one occasion? 2 08/21/2024 Depression Answer Date Recorded Patient Health Questionnaire-9 Score 0 03/27/2024 Patient Health Questionnaire-9 Score 0 03/27/2024 Last PHQ-9: Questionnaire Data Not on file 1 Housing Stability Answer Date Recorded What is your housing situation today? I do not have housing (Staying with others, in a hotel, in a prison, living outside on the street, on a [...] Sign Reading Time Taken Comments Blood Pressure 132/78 08/21/2024 2:27 PM EDT Pulse 85 08/21/2024 2:27 PM EDT Temperature 36.2 ??C (97.1 ??F) 08/21/2024 2:27 PM ED T Respiratory Rate 21 08/21/2024 2:27 PM EDT Oxygen Saturation 99% 08/21/2024 2:27 PM EDT Inhaled Oxygen Concentration - - Weight 119 kg (263 lb) 08/21/2024 2:27 PM EDT Height 182.9 cm (6') 08/21/2024 2:27 PM EDT Body Mass Index 35.67 08/21/2024 2:27 PM EDT Plan of Treatment Upcoming Encounters Date Type Department Care Team (Late st Contact Info) Description 09/18/2024 9:00 AM EDT Office Visit [facility] [address] [place] [address] Vasquez Farooq MD [address] [place], [place] [phone] 11/18/2024 1:45 PM EDT Office Visit [facility] [address], [place] [phone] [place], Maricarmen, DOG CATCHER [address] [place], [place] [phone] Health Maintenance Due Date Last Done Comments CT Colonography 1965 FIT DNA/Cologuard 1965 FIT 1965 FOBT 1965 Sigmoidoscopy 1965 Zoster Vaccines (1 of 2) 2015 COVID-19 Vaccine ( season) 2024 07/02/2021, 10/16/2020, 09/18/2020 SDOH Screening 03/19/2025 03/19/2024 Depression Screening 03/27/2025 03/27/2024, 03/27/20 24 Colonoscopy 08/06/2025 08/06/2015 Colorectal Cancer Screening 08/06/2025 Alcohol/Substance Use Screening 08/21/2025 08/21/2024 Tobacco Screening 08/25/2025 08/25/2024 Lipid Panel 01/02/2029 01/03/2024, 11/10, 07/15/2021, Additional [...] 132/78( 025 2:27 PM EDT) No Fallon Pizarro PharmD Procedures Procedure Name Priority Date/Time Associated Diagnosis Comments VITAMIN D,25-OH,TOTAL,IA Routine 09/10/2024 1:23 PM EDT Osteoporosis with current pathological fracture, unspecified osteoporosis type, initial encounter Vitamin D deficiency POCT EMA-14 URINE DRUG SCREEN Routine 07/24/2024 9:04 AM EST Opioid dependence, uncomplicated ([facility]) COMPREHENSIVE METABOLIC PANEL Routine 07/10/2024 6:59 AM EST Osteoporosis with current pathological fracture, unspecified osteoporosis type, initial encounter VITAMIN D,25-OH,TOTAL,IA Routine 07/10/2024 6:59 AM EST Osteoporosis with current pathological fracture, unspecified osteoporosis type, initial encounter Disorder of bone density and structure, unspecified TESTOSTERONE, TOTAL, MALES (ADULT), IA Routine 07/10/2024 6:59 AM EST Osteoporosis with current pathological fracture, unspecified osteoporosis type, initial encounter PROTEIN ELECTROPHORESIS AND KAPPA/LAMBDA LIGHT CHAINS, SERUM Routine 07/10/2024 6:59 AM EST Osteoporosis with [...] pathological fracture, vertebra(e), initial encounter for fracture ([facility]) POCT EMA-14 URINE DRUG SCREEN Routine 06/26/2024 9:20 AM EST Opioid dependence, uncomplicated (CMS/HCC) LIPID PANEL, STANDARD Routine 01/03/2024 12:08 PM EDT Essential hypertension HEPATITIS PANEL, GENERAL Routine 12/12/2022 10:09 AM EDT Mixed hyperlipidemia HIV ANTIBODY/ANTIGEN ([place] DPH) Routine 11/22/2022 8:52 AM EDT Mixed hyperlipidemia HM COLONOSCOPY Routine 08/06/2015 from Last 3 Months or Most Recently Relevant to Health Maintenance Results * Vitamin D, 25-Hydroxy, Total, Immunoassay (09/10/2024 1:23 PM EDT) Only the most recent of2 resultswithin the time period is included. Vitamin D 25-OH Total 34.0 >30 ng/mL [facility] Comment: Health Based Reference Values*< 20 ??ng/mL ??[id number] ng/mL ??Insufficient> 30 ??ng/mL ??Sufficient*Junito HO. N Engl J Med. 2007;357:266-280There is no well-established upper level of normal vitamin Dlevels. Some laboratories use 50 ng/mL as an upper limit ofnormal. However, toxicity is patient-dependent and may occurat any level. Careful correlation with the patient'spresentation is necessary and, if there is concern forvitamin D toxicity, treatment should be consideredirrespective of the serum level.Care must be taken in interpreting Vitamin D results fromdifferent laboratories and methodologies. ??Published datademonstrated that results from patients undergoinghemodialysis may show a negative bias when tested withvarious automated 25-OH vitamin D assays when compared toLC- MS/MS.When testing samples from patients whose predominant form ofVitamin D is Vitamin D2, such as patients receiving VitaminD2 supplementation, results that are subtherapeutic shouldbe confirmed with another method such as LC-MS/MS. Blood Venous blood specimen / Unknown 09/10/2024 1:23 PM EDT 09/10/2024 1:23 PM EDT [facility] LAB BLOOD ORDERABLES Final Re sult [facility] [address] [place] [phone] * POCT EMA-14 Urine Drug Screen (07/24/2024 9:04 AM EST) Only the most recent of2 resultswithin the time period is included. THC [...] obtained by clean catch procedure / Unknown 07/24/2024 9:04 AM EST Vasquez Farooq MD POINT OF CARE TEST ENTER/EDIT OR DERABLES Final Result * Protein Electrophoresis and Walnut/Lambda Light Chains (07/10/2024 6:59 AM EST) Prot Elec - Total Protein 7.8 6.1 - 8.1 g/dL [facility] Prot Elec - Albumin 4.5 3.8 - 4.8 g/dL [facility] Prot Elec - Alpha1 0.3 0.2 - 0.3 g/dL [facility] Prot Elec - Alpha2 0.7 0.5 - 0.9 g/dL [facility] Prot Elec - Beta 1 0.5 0.4 - 0.6 g/dL [facility] Prot Elec - Beta 2 0.5 0.2 - 0.5 g/dL [facility] Prot Elec - Gamma 1.3 0.8 - 1.7 g/dL [facility] PES - Abn Protein Band 1 [facility] PES-Abn Protein Band 2 [facility] PES-Abn Protein Band 3 [facility] Prot Elec - Interpretation SEE NOTE [facility] Comment:Normal Serum Protein Electrophoresis Pattern.No abnormal protein bands (M-protein) detected.THIS TEST WAS PERFORMED AT:[address] [place] [id number] ADAMES MD 07/10/2024 6:59 AM EST 07/10/2024 6:59 AM EST [facility] LAB BLOOD ORDERABLES Final Re sult [facility] [address] [place] [phone] * (ABNORMAL) CBC auto differential (07/10/2024 6:59 AM EST) White Blood Count 6.4 4.8 - 10.8 X10*3/uL [facility] Red Blood Count 4.41(L) 4.60 - 5.80 X10*6/uL [facility] Hemoglobin 13.0(L) 14.0 - 18.0 g/dl [facility] Hematocrit 39.4(L) 42.0 - 52.0 % [facility] Mean Corpuscular Volume 89.3 80.0 - 98.0 fL [facility] Mean Corpuscular Hemoglobin 29.5 27.0 - 33.0 pg [facility] Mean Corpuscular HGB Conc 33.0 31.0 - 36.0 g/dl [facility] Red Cell Distribution Width 11.9 11.0 - 16.0 % [facility] Platelet Count 186 160 - 400 X10*3/uL [facility] Mean Platelet Volume 10.1 9.4 - 12.4 fL [facility] Neutrophils Percent Auto 54.7 45 - 73 % [facility] Imm Gran Pct Auto 0.9(H) 0.0 - 0.4 % [facility] Lymphocytes Percent Auto 25.7 20 - 40 % [facility] Monocytes Percent Auto 12.8(H) 2 - 11 % [facility] Eosinophils Percent Auto 5.3(H) 0 - 4 % [facility] Basophils Percent Auto 0.6 0 - 2 % [facility] NRBC Pct Auto 0.0 0.0 - 0.2 /100WBC [facility] Neutrophils Absolute Auto 3.5 2.0 - 8.3 x10*3/uL [facility] Imm Gran Abs Auto 0.06(H) 0.00 - 0.03 X10*3/uL [facility] Lymphocytes Absolute Auto 1.7 1.2 - 4.9 X10*3/uL [facility] Monocytes Absolute Auto 0.8 0.1 - 1.2 X10*3/uL [facility] Eosinophils Absolute Auto 0.3 0.0 - 0.4 X10*3/uL [facility] Basophils Absolute Auto 0.0 0.0 - 0.2 X10*3/uL [facility] NRBC Abs Auto 0.000 0.0 - 0.012 X10*3/uL [facility] Blood Venous blood specimen / Unknown 07/10/2024 6:59 AM EST 07/10/2024 6:59 AM EST [facility] LAB BLOOD ORDERABLES Final Re sult Performing Organization Address City/[facility]/[place] Co de Phone Number [facility] [address] [place] [phone] * Testosterone, Total, males (Adult), IA (07/10/2024 6:59 AM EST) Testosterone, Total 380 250 - 1100 ng/dL [facility] Comment:For additional infor mation, please refer tohttp://education.SemiLev/faq/[email or web address](This link is being provided for informational/educational purposes only.)This test was developed and its analytical performancecharacteristics have been determined by [facility], [place]. It hasnot been cleared or approved by the U.S. Food and DrugAdministration. This assay has been validated pursuantto the CLIA regulations and is used for clinicalpurposes.THIS TEST WAS PERFORMED AT:[employer] [place] [id number] FINN MD,PHD Blood Venous blood specimen / Unknown 07/10/2024 6:59 AM EST 07/10/2024 6:59 AM EST [facility] LAB BLOOD ORDERABLES Final Re sult Performing Organization Address [facility]/[place] Co de Phone Number [facility] [address] [place] [phone] * Phosphate (As Phosphorus) (07/10/2024 6:59 AM EST) Phosphorus 3.2 2.7 - 4.5 mg/dL [facility] Blood Venous blood specimen / Unknown 07/10/2024 6:59 AM EST 07/10/2024 6:59 AM EST [facility] LAB BLOOD ORDERABLES Final Re sult Performing Organization Address [facility]/ZIP Co de Phone Number [facility] [address] [place] [phone] * (ABNORMAL) PTH, Intact Without Calcium (07/10/2024 6:59 AM EST) Parathyroid Hormone, Intact 100.9(H) 8.7 - 77.1 pg/mL [facility] Blood Venous blood specimen / Unknown 07/10/2024 6:59 AM EST 07/10/2024 6:59 AM EST [facility] LAB BLOOD ORDERABLES Final Re sult Performing Organization Address [facility]/ZIP Co de Phone Number [facility] [address] [place] [phone] * Magnesium (07/10/2024 6:59 AM EST) Pathologist [facility] Magnesium 1.9 1.6 - 2.6 mg/dL [facility] Blood Venous blood specimen / Unknown 07/10/2024 6:59 AM EST 07/10/2024 6:59 AM EST [facility] LAB BLOOD ORDERABLES Final Re sult Performing Organization Address [facility]/ZIP Co de Phone Number [facility] [address] [place] [phone] * (ABNORMAL) Comprehensive Metabolic Panel (07/10/2024 6:59 AM EST) Sodium 137 135 - 145 mmol/L [facility] Potassium 4.3 3.3 - 5.1 mmol/L [facility] Chloride 103 96 - 108 mmol/L [facility] Carbon Dioxide 26 22 - 29 mmol/L [facility] Anion Gap 12 12 - 20 [facility] Urea Nitrogen (BUN) 13 9 - 16 mg/dL [facility] Creatinine, Serum 0.79 0.5 - 1.4 mg/dL [facility] Estimated Glomerular Filt Rate >60 [facility] Comment:Chronic Kidney Disea se: Estimated GFR < 60 mL/min/1.26j5Rfizoq Kidney Disease: Estimated GFR < 15 mL/min/1.73m2 Glucose 160(H) 60 - 115 mg/dL [facility] Calcium 9.3 8.4 - 10.2 mg/dL [facility] Bilirubin, Total 0.8 0.0 - 1.0 mg/dL [facility] Aspartate Amino Transferase 34 5 - 37 U/L [facility] Alanine Aminotransferase 37 0 - 40 U/L [facility] Total Protein 8.2(H) 6.5 - 8.0 g/dL [facility] Albumin Level 4.3 3.5 - 5.0 g/dL [facility] Alkaline Phosphatase 91 39 - 117 U/L [facility] Blood Venous blood specimen / Unknown 07/10/2024 6:59 AM EST 07/10/2024 6:59 AM EST [facility] DOG CATCHER LAB BLOOD ORDERABLES Final Re sult Performing Organization Address City/State/[place] Co de Phone Number [facility] [address] [place] [phone] * BD DEXA Axial (07/04/2024 1:50 PM EST) Anatomical Region Laterality Modality Body Radiographic Doris ging 07/04/2024 1:50 PM EST Narrative 07/04/2024 3:17 PM EST ? [facility] ? [address] ?[place] [address] ? Mammography Report ? Signed ? Patient: Wells Umang,Kieran ?MR#: [id number] ?? [id number] ? : 1965 ?Acct:[id number] ? Age/Sex: 59 / M ?ADM Date: 01/23/25 ? Loc: HO.MAMMO ? Attending Dr: Maricarmen Winn DOG CATCHER ? Ordering Physician: Maricarmen Winn DOG CATCHER ?Results: ? Date of Service: 07/04/24 ?Follow Up: ? Procedure(s): XR DEXA axial skeleton ?? Accession Number(s): [id number] ? cc: Maricarmen Winn DOG CATCHER ? EXAMINATION: ??DXA BONE DENSITY AXIAL ? HISTORY: ??Estrogen deficiency ? TECHNIQUE: Clinical Data Dual energy absorptiometry (DEXA) ?? of the [...] [facility] [employer]'s ?? [place] for Metabolic Bone Disease, a World Health Organization (WHO) ?? Collaborating Center. ? Electronically signed by: ??Garrick Murry MD ??07/04/2024 03:15 PM EST ?? RP ? Dictated By: ?Garrick Murry MD ? Signed By: ?<Electronically signed by Garrick Murry MD in OV> ?07/04/24 1515 ? DD/ 1350 ? TD/TT: 07/04/24 1422 ? Food Preservation Scientist: ? Procedure Note Donarmaniter, Image - 07/04/2024 [facility] [address] [place] [address] Mammography Report Signed Patient: Kieran Palomo#: M [id number] : 1965Acct:[id number] Age/Sex: 59 / MADM Date: 07/04/24 Loc: [facility] Attending Dr: Maricarmen Winn DOG CATCHER Ordering Physician: Maricarmen Winn FNPResults: Date of Service: 07/04/24Follow Up: Procedure(s): XR DEXA axial skeleton Accession Number(s): [id number] cc: Maricarmen Winn EXAMINATION: DXA BONE DENSITY AXIAL HISTORY: Estrogen deficiency TECHNIQUE: Clinical Data Dual energy absorptiometry (DEXA) of the lumbar [...] of the [employer]'s [place] for Metabolic Bone Disease, a World Health Organization (WHO) Collaborating Center. Electronically signed by: Garrick Murry MD 07/04/2024 03:15 PM [facility] Dictated By: Garrick Murry MD Signed By: <Electronically signed by Garrick Murry MD in OV> 07/04/24 1515 DD/ 1350 TD/TT: 07/04/24 1422 Food Preservation Scientist: [facility] DXA PROCEDURES Final Resu lt * (ABNORMAL) Lipid Panel, Standard (01/03/2024 12:08 PM EDT) Triglycerides 62 <150 mg/dL [facility] Comment:Desirable Triglyceri de: less than 150 mg/dLBorderline High Triglyceride 150-199 mg/dLHigh Triglyceride: 200-499 mg/dLVery High Triglyceride: greater than or equal to 5OO mg/dL Cholesterol 226(H) <200 mg/dL [facility] Comment:Desirable Cholestero l: less than 200 mg/dLBorderline High Cholesterol: 200-239 mg/dLHigh Cholesterol: greater than 239 mg/dL LDL Cholesterol Calculated 96 <100 mg/dL [facility] Comment:Desirable LDL: less than 100 mg/dLNear Optimal/Above Optimal LDL: 110- 129 mg/dLBorderline High LDL: 130-159 mg/dLHigh LDL: 160-189 mg/dLVery High LDL: greater than or equal to 190 mg/dL HDL Cholesterol 118 >40 mg/dL [facility] Comment:Desirable HDL: great er than 40 mg/dL Note: This HDL assay may give artificially low results in patients with liver disease. Blood Venous blood specimen / Unknown 01/03/2024 12:08 PM EDT 01/03/2024 12:08 PM EDT [facility] DOG CATCHER LAB BLOOD ORDERABLES Final Re sult [facility] [address] [place] [phone] * Hepatitis Panel, General (12/12/2022 10:09 AM EDT) Hepatitis A IgM Nonreactive Nonreactive [facility] Comment:IgM antibodies to DUVAL V not detected; does not exclude earlyacute or recovered HAV infection. ~Hepatitis B Surface Antibody REACTIVE Nonreactive [facility] Comment:REACTIVE: > 11.99 mI U/mL Hepatitis B Core Antibody Nonreactive Nonreactive [facility] Hepatitis C Antibody Nonreactive Nonreactive [facility] Comment:Antibodies to HCV no t detected; does not exclude early acuteHCV infection. Hepatitis B Surface Ag Negative Negative [facility] 12/12/2022 10:0 9 AM EDT 12/12/2022 10:09 AM EDT [facility] External Provider LAB BLO OD ORDERABLES Final Result Performing Organization Address [facility]/[place] Co de Phone Number [facility] [address] [place] [phone] * HIV Ab/Ag (DANISHA HERNANDEZ) (11/22/2022 8:52 AM EDT) HIV AB/AG Nonreactive Nonreactive [facility] Comment:HIV-1 p24 Ag and/or HIV-1/HIV-2 Ab not detected.A test result that is nonreactive does not exclude thepossibility of exposure to or infection with HIV-1 and/orHIV-2. Nonreactive results in this assay for individualswith prior exposure to HIV-1 and/or HIV-2 may be due toantigen and antibody levels that are below the limit ofdetection of this assay.[employer] Therapist HIV Ag/Ab Combo assay result andsupplemental assay results should be interpreted inconjunction with the patient's clinical presentation,history and other laboratory results. If the results areinconsistent with clinical evidence, additional testing issuggested to confirm the result. 11/22/2022 8:52 AM EDT 11/22/2022 8:53 AM EDT [facility] External Provider LAB BLO OD ORDERABLES Final Result Performing Organization Address [facility]/ZIP Co de Phone Number [facility] [address] [place] [address] [phone] * Colonoscopy (08/06/2015) Colonoscopy normal Narrative Lori, Nano - 08/06/2015 Repeat in 10 years Historical Provider HEALTH MAINTENANCE Edited Result - Final from Last 3 Months or Most Recently Relevant to Health Maintenance Insurance [facility] STANDARD MEDICARE Care Teams Sample Clerk Relationship Specialty Start Date End Date Maricarmen Winn FNP [address] [place] [phone] PCP - General Family Medicine 07/13/22
[2024-09-10 18:11] LABS: Parathyroid Hormone Intact 63.7 pg/mL (8.7-77.1)
[2024-09-12 18:29] LABS: Immunoglobulin A 296 mg/dL (47-310); Transglutaminase IgA <1.0 U/mL
== END 2024-09-10 13:09 | disposition home or self-care (01) ==
LOC: HO.LAB 13:08
PROVIDERS: PCP Registered Nurse; Visit Provider Registered Nurse
DX: M80.00XA Age-related osteoporosis with current pathological fracture, unspecified site, initial encounter for fracture (principal); E55.9 Vitamin D deficiency, unspecified
CPT/HCPCS: 36415; 82306; 82784; 83970; 86364

== ENCOUNTER 2024-10-28 14:47 | Outpatient (AMB) | payer MEDICARE, MEDICAID, SELFPAY ==
--- OUTSIDE RECORDS SUMMARY | 2024-10-28 14:52 | XMS_ITS | Clinical Summary ---
Author Organization [employer] Address 75 [facility] 7t [place] [address] Care Team Providers Care Tool Checker Name Role Phone [facility] Primary Care Provider [phone] Allergies No known active allergies Medications naloxone (Narcan) 4 mg/0.1 mL nasal spray Administer 0.1 mL into affected nostril(s) if needed. [place] 0.1 mL by intranasal route in one [...] 2 times daily. 60 tablet 11 024 Active Multiple Vitamin (Multivitamin) tablet TAKE 1 TABLET BY MOUTH EVERYDAY AT NOON 90 tablet 3 024 Active thiamine (Vitamin B-1) 100 MG tablet TAKE 1 TABLET BY MOUTH EVERYDAY AT NOON 90 tablet 3 024 Active lidocaine (Lidoderm) 5 % patchIndications: Chronic bilateral low back pain with right-sided sciatica Apply topically to affected areas. Leave on for up to 12 hours 30 patch 1 024 Active ibuprofen 600 MG tabletIndications :Chronic bilateral low back pain with right-sided sciatica Take 1 tablet (600 mg) by mouth every 6 (six) hours if needed for mild pain. 30 tablet 024 Active omeprazole (PriLOSEC) [address] capsuleIndication s:Left upper quadrant abdominal pain TAKE 1 CAPSULE BY MOUTH TWICE DAILY 180 capsule 3 024 Active metFORMIN XR (Glucophage-XR) 500 MG 24 hr tabletIndications :Metabolic syndrome Take 1 tablet (500 mg) by mouth 2 times daily. Do not crush, chew, or split. 60 tablet 024 2024 Active olmesartan (Benicar) 40 MG tabletIndications :Essential hypertension Take 1 tablet (40 mg) by mouth Once per day. 30 tablet 024 2024 Active cholecalciferol (Vitamin D-3) 50 MCG (2000 UT) capsuleIndication s:Osteoporosis with current pathological fracture, unspecified osteoporosis type, initial encounter Take 1 capsule (50 mcg) by mouth Once per day. 30 capsule Active alendronate (Fosamax) 70 MG tabletIndications :Osteoporosis with current pathological fracture, unspecified osteoporosis type, initial encounter Take 1 tablet (70 mg) by mouth every 7 (seven) days. Take in the morning with a full glass of water, on an empty stomach, and do not take anything else by mouth or lie down for the next 30 min. 4 tablet 025 2025 Active calcium carbonate (Calcium 600) 600 MG tabletIndications :Osteoporosis with current pathological fracture, unspecified osteoporosis type, initial encounter Take 1 tablet (600 mg) by mouth with breakfast and with evening meal. 60 tablet 025 2025 Active Suboxone 8-2 MG SL filmIndications:O pioid dependence, uncomplicated (CMS/HCC) Place 3 Film under the tongue Once per day for 28 days. Do not start before October 16, 2024. 84 Film 025 2024 Active Suboxone 8-2 MG SL filmIndications:O pioid dependence, uncomplicated (CMS/HCC) Place 3 Film under the tongue Once per day for 28 days. Do not start before September 18, 2024. 84 Film 025 2024 Discontinued(R eorder (will not trigger notification to Pharmacy)) Active Problems Problem Noted Date Diagnosed Date Osteoporosis with current pathological fracture 07/09/2024 Overview (09/11/2024): Started alendronate 09/2024 Metabolic syndrome 05/23/2024 Elevated liver enzymes 03/31/2024 [...] ?? Followed by therapy and psychiatry at [facility] ?? Escitalopram and clonidine Essential [...] Encounters Date Type Department Care Team Description 10/16/2024 9:00 AM EDT Office Visit [address] [address] Vasquez Farooq MD Opioid dependence, uncomplicated (CMS/HCC) (Primary Dx) 10/16/2024 Travel 10/14/2024 Refill [facility] [address] [place] [address] Shayy Baer RN Opioid dependence, uncomplicated (CMS/HCC) 10/09/2024 9:00 AM EDT Office Visit [address] [address] Vasquez Farooq MD Opioid dependence, uncomplicated (CMS/HCC) (Primary Dx) 10/09/2024 Travel 09/19/2024 9:00 AM EDT Clinical Support [address] [address] Desmond Espinosa RN Opioid dependence, uncomplicated (CMS/HCC) (Primary Dx) 09/19/2024 Travel 09/12/[address] [address] Shayy Baer RN Opioid dependence, uncomplicated (CMS/HCC) 09/11/[address] [address] TatumMaricarmen carmona FNP Results 09/11/2024 Orders Only [facility] [address] [place] [address] CumberlandMaricarmen carmona [facility] Osteoporosis with current pathological fracture, unspecified osteoporosis type, initial encounter (Primary Dx) 09/04/2024 9:00 AM EDT Office Visit [address] [address] Vasquez Farooq MD Opioid dependence, uncomplicated (CMS/HCC) (Primary Dx) 09/04/2024 Travel 08/21/2024 2:30 PM EDT Office Visit [address] [address] CumberlandMaricarmen [facility] Osteoporosis with current pathological fracture, unspecified osteoporosis type, initial encounter (Primary Dx); Vitamin D deficiency; Dietary counseling; Exercise counseling; Class 2 severe obesity due to excess calories with serious comorbidity and body mass index (BMI) of 35.0 to 35.9 in adult ([facility]) 08/21/2024 9:00 AM EDT Office Visit [facility] [address] [place] [address] Vasquez Farooq MD Opioid dependence, uncomplicated ([facility]) (Primary Dx) 08/21/2024 Travel 08/15/2024 Patient Outreach [facility] [address] [place] [address] [phone] CumberlandMaricarmen [facility] Care Coordination (CHW outreach for SDOH housing search-referral completed ) 08/14/2024 9:00 AM EST Office Visit [facility] [address] [place] [phone] Vasquez Farooq MD Opioid dependence, uncomplicated ([facility]) (Primary Dx) 08/14/2024 Telephone [facility] [address] [place] [phone] CumberlandMar[place]armen [facility] 08/14/2024 Refill [facility] [address] [place] [address] Shayy Baer, CLAUDIA Opioid dependence, uncomplicated ([facility]) 08/14/2024 Patient Outreach [address] [phone] CumberlandMaricarmen [facility] Pre-visit Planning ((SDOH screening positive tobacco screening positive)) 08/14/2024 Travel from Last 3 Months Immunizations Immunization Administration Dates Next Due Hep A, Adult [...] Care Team (Late st Contact Info) Description 11/13/2024 9:00 AM EDT Office Visit [facility] [address] [place] [phone] Vasquez Farooq MD [address] [place] [address] 11/18/2024 1:45 PM EDT Office Visit [facility] [address] [place] [address] [place] [facility] [address] [place] [address] Health Maintenance Due Date Last Done Comments [...] patient's age to complete this topic Meningococcal B Vaccine Aged Out No l onger eligible based on patient's age to complete [...] Author Blood Pressure < 140/90 Blood Pressure 132/78(2024 2:27 PM EDT) No Fallon Pizarro, PharmD Improve quality of life by maintaining ongoing abstinence from all mood-altering substances General No Desmond Espinosa, forest botany instructor Procedure Name Priority Date/Time Associated Diagnosis Comments POCT EMA-14 URINE DRUG SCREEN Routine 10/16/2024 10:20 AM EDT Opioid dependence, uncomplicated (CMS/HCC) POCT EMA-14 URINE DRUG SCREEN Routine 09/19/2024 9:10 AM EDT Opioid dependence, uncomplicated (CMS/HCC) VITAMIN D,25-OH,TOTAL,IA Routine 09/10/2024 1:23 PM EDT Osteoporosis with current pathological fracture, unspecified osteoporosis type, initial encounter Vitamin D deficiency PTH, INTACT WITHOUT CALCIUM Routine 09/10/2024 1:23 PM EDT Osteoporosis with current pathological fracture, unspecified osteoporosis type, initial encounter CELIAC DISEASE COMPREHENSIVE PANEL Routine 09/10/2024 1:23 PM EDT Osteoporosis with current pathological fracture, unspecified osteoporosis type, initial encounter LIPID PANEL, STANDARD Routine 01/03/2024 12:08 PM EDT Essential hypertension HEPATITIS PANEL, GENERAL Routine 12/12/2022 10:09 AM EDT Mixed hyperlipidemia HIV ANTIBODY/ANTIGEN ([place] DPH) Routine 11/22/2022 8:52 AM EDT Mixed hyperlipidemia HM COLONOSCOPY Routine 08/06/2015 from Last 3 Months or Most Recently Relevant to Health Maintenance Results * POCT EMA-14 Urine Drug Screen (10/16/2024 10:20 AM EDT) Only the most recent of2 resultswithin the time period is included. THC Negative Cocaine Screen, Urine Negative Opiate Screen, Urine Negative Methamphetamine Screen Urine Negative Amphetamine Screen, Urine Negative Benzodiazepines Screen, Urine Negative Barbiturate Screen, Urine Negative Methadone Screen, Urine Negative Buprenophine Screen, Urine Positive TCA, Urine Negative MDMA Urine Negative ng/mL Oxycodone Screen, Urine Negative Phencyclidine (PCP), Urine Negative Fentanyl, Urine Negative Urine Urine specimen obtained by clean catch procedure / Unknown 10/16/2024 10:20 AM EDT Vasquez Farooq MD POINT OF CARE TEST ENTER/EDIT OR DERABLES Final Result * Vitamin D, 25-Hydroxy, Total, Immunoassay (09/10/2024 1:23 PM EDT) Vitamin D 25-OH Total 34.0 >30 ng/mL [facility] Comment: Health Based Reference Values*< 20 ??ng/mL ??Mxkrywpig46-04 ng/mL ??Insufficient> 30 ??ng/mL ??Sufficient*Junito HO. N [...] 1:23 PM EDT 09/10/2024 1:23 PM EDT [facility] DERRICK BOAT CAPTAIN LAB BLOOD ORDERABLES Final Re sult [facility] [address] [place] [phone] * Celiac Disease Comprehensive Panel (09/10/2024 1:23 PM EDT) Immunoglobulin A 296 47 - 310 mg/dL [facility] Comment:THIS TEST WAS PERFOR MED AT:[facility] [place] [phone] ADAMES MD Transglutaminase IgA <1.0 U/mL [facility] Comment:Value Interpretation ----- <15.0 Antibody not detected> or = 15.0 Antibody detected Interpretation SEE NOTE [facility] Comment:No serological evide nce of celiac disease.tTG IgA may normalize in individuals with celiac diseasewho maintain a gluten-free diet. Consider HLA DQ2 andDQ8 testing to rule out celiac disease. Celiac diseaseis extremely rare in the absence of DQ2 or DQ8. Blood Venous blood specimen / Unknown 09/10/2024 1:23 PM EDT 09/10/2024 1:23 PM EDT [facility] LAB BLOOD ORDERABLES Final Re sult Performing Organization Address City/[facility]/ZIP Co de Phone Number [facility] [address] [place] [address] [phone] * PTH, Intact Without Calcium (09/10/2024 1:23 PM EDT) Parathyroid Hormone, Intact 63.7 8.7 - 77.1 pg/mL [facility] Blood Venous blood specimen / Unknown 09/10/2024 1:23 PM EDT 09/10/2024 1:23 PM EDT [facility] LAB BLOOD ORDERABLES Final Re sult Performing Organization Address City/[facility]/ZIP Co de Phone Number [facility] [address] [place] [address] [phone] * (ABNORMAL) Lipid Panel, Standard (01/03/2024 12:08 PM EDT) Triglycerides 62 <150 mg/dL [facility] Comment:Desirable Triglyceri de: less than 150 mg/dLBorderline High Triglyceride 150-199 mg/dLHigh Triglyceride: 200-499 mg/dLVery High Triglyceride: greater than or equal to 5OO mg/dL Cholesterol 226(H) <200 mg/dL [facility] Comment:Desirable Cholestero l: less than 200 mg/dLBorderline High Cholesterol: 200-239 mg/dLHigh Cholesterol: greater than 239 mg/dL LDL Cholesterol Calculated 96 <100 mg/dL [facility] Comment:Desirable LDL: less than 100 mg/dLNear Optimal/Above Optimal LDL: 110- 129 mg/dLBorderline High LDL: 130-159 mg/dLHigh LDL: 160-189 mg/dLVery High LDL: greater than or equal to 190 mg/dL HDL Cholesterol 118 >40 mg/dL [facility] Comment:Desirable HDL: great er than 40 mg/dL Note: This HDL assay may give artificially low results in patients with liver disease. Blood Venous blood specimen / Unknown 01/03/2024 12:08 PM EDT 01/03/2024 12:08 PM EDT [facility] DERRICK BOAT CAPTAIN LAB BLOOD ORDERABLES Final Re sult [facility] [address] [place] [phone] * Hepatitis Panel, General (12/12/2022 10:09 AM EDT) Hepatitis A IgM Nonreactive Nonreactive [facility] Comment:IgM antibodies to DUVAL V not detected; does not exclude earlyacute or recovered HAV infection. ~Hepatitis B Surface Antibody REACTIVE Nonreactive [facility] Comment:REACTIVE: > 11.99 mI U/mL Hepatitis B Core Antibody Nonreactive Nonreactive [facility] Hepatitis C Antibody Nonreactive Nonreactive [facility] Comment:Antibodies to HCV no t detected; does not exclude early acuteHCV infection. Hepatitis B Surface Ag Negative Negative [facility] 12/12/2022 10:0 9 AM EDT 12/12/2022 10:09 AM EDT [facility] External Provider LAB BLO OD ORDERABLES Final Result Performing Organization Address [facility] Co de Phone Number [facility] [address] [place] [address] [phone] * HIV Ab/Ag (DANISHA HERNANDEZElana) (11/22/2022 8:52 AM EDT) HIV AB/AG Nonreactive Nonreactive [facility] Comment:HIV-1 p24 Ag and/or HIV-1/HIV-2 Ab not detected.A test result that is nonreactive does not exclude thepossibility of exposure to or infection with HIV-1 and/orHIV-2. Nonreactive results in this assay for individualswith prior exposure to HIV-1 and/or HIV-2 may be due toantigen and antibody levels that are below the limit ofdetection of this assay.[employer] Mus[employer] Instrumental HIV Ag/Ab Combo assay result andsupplemental assay results should be interpreted inconjunction with the patient's clinical presentation,history and other laboratory results. If the results areinconsistent with clinical evidence, additional testing issuggested to confirm the result. 11/22/2022 8:52 AM EDT 11/22/2022 8:53 AM EDT [facility] External Provider LAB BLO OD ORDERABLES Final Result Performing Organization Address [facility] Co de Phone Number [facility] [address] [place] [address] [phone] * Colonoscopy (08/06/2015) Colonoscopy normal Narrative Lori Nano - 08/06/2015 Repeat in 10 years Historical Provider HEALTH MAINTENANCE Edited Result - Final from Last 3 Months or Most Recently Relevant to Health Maintenance Insurance [facility] STANDARD MEDICARE Care Teams Tool Checker Relationship Specialty Start Date End Date Maricarmen Winn FNP [address] [place] [phone] PCP - General Family Medicine 07/13/22
--- OUTSIDE RECORDS SUMMARY | 2024-10-28 14:52 | XMS_ITS | Encounter Summary ---
Author Organization [employer] Address [address] [facility] [address] [place] [address] Care Team Providers Care Crisis Specialist Name Role Phone [place] [facility] Primary Care Provider [phone] Encounter Details Date Type Department Care Team (Late st Contact Info) Description 04/28/2023 Abstract [facility]INE [address] [place] [address] Nano Sandoval Social History Tobacco Use Types [...] Description 11/13/2024 9:00 AM EDT Office Visit [facility] [address] [place] [address] Vasquez Farooq MD [address] [place] [address] [phone] 11/18/2024 1:45 PM EDT Office Visit [facility] [address] [place] [address] Maricarmen Winn FNP [address] [place] [address] documented as of this encounter Goals Goal [...] documented as of this encounter Care Teams Crisis Specialist Relationship Specialty Start Date End Date Maricarmen Winn FNP [address] [place] [phone] PCP - General Family Medicine 07/13/22 documented as of this encounter
--- OUTSIDE RECORDS SUMMARY | 2024-10-28 14:52 | XMS_ITS | Encounter Summary ---
Author Organization [employer] Address 75 [facility] [address] [address] Care Team Providers Care Advertising Associate Name Role Phone [facility] Primary Care Provider [phone] Reason for Visit * Reason Comments Med Refill Encounter Details Date Type Department Care Team ([facility] st Contact Info) Description 02/07/2024 Refill [facility] [address] [place], [place] [phone] Vasquez Farooq MD [address] [place], [place] [phone] Opioid dependence, uncomplicated (CMS/HCC) Social History Tobacco [...] enough money to get more: Never True 10/ Transportation Answer Date Recorded In the past [...] Description 11/13/2024 9:00 AM EDT Office Visit [facility] [address] [place] [address] Vasquez Farooq MD [address] [place] [phone] 11/18/2024 1:45 PM EDT Office Visit [facility] [address] [place] [address] Maricarmen Winn FNP [address] [place] [phone] documented as of this encounter Goals Goal [...] documented as of this encounter Care Teams Advertising Associate Relationship Specialty Start Date End Date Maricarmen Winn FNP [address] [place] [phone] PCP - General Family Medicine 07/13/22 documented as of this encounter
--- OUTSIDE RECORDS SUMMARY | 2024-10-28 14:52 | XMS_ITS | Encounter Summary ---
Author Organization [employer] Address 75 [facility] [address], [place] [address] Care Team Providers Care Junior Staff Accountant Name Role Phone [place] [facility] Primary Care Provider [phone] Reason for Visit * Reason Comments Med Refill Encounter Details Date Type Department Care Team ([facility] st Contact Info) Description 03/01/2024 Refill [facility] [address] [place], [place] [phone] [place] [facility] [address] [place] [address] Essential hypertension Social History Tobacco Use Types [...] Description 11/13/2024 9:00 AM EDT Office Visit [address] [address] Vasquez Farooq MD [address] [place] [phone] 11/18/2024 1:45 PM EDT Office Visit [address] [address] Maricarmen Winn FNP [address] [place] [address] documented as of this encounter Goals Goal [...] documented as of this encounter Care Teams Junior Staff Accountant Relationship Specialty Start Date End Date Maricarmen Winn FNP [address] [place] [phone] PCP - General Family Medicine 07/13/22 documented as of this encounter
--- OUTSIDE RECORDS SUMMARY | 2024-10-28 14:52 | XMS_ITS | Encounter Summary ---
Author Organization [employer] Address 75 [facility] [address], [place] [address] Care Team Providers Care Bench Lay Out Technician Name Role Phone [place] [facility] Primary Care Provider [phone] Reason for Visit * Reason Comments Med Refill Encounter Details Date Type Department Care Team ([facility] st Contact Info) Description 01/05/2024 Refill [facility] MED[facility] [address] [place], [place] [phone] [place] [facility] [address] [place] [address] Essential hypertension Social History Tobacco Use Types [...] with others, in a hotel, in a assisted, living outside on the street, on a [...] Description 11/13/2024 9:00 AM EDT Office Visit [address] [address] Vasquez Farooq MD [address] [place] [phone] 11/18/2024 1:45 PM EDT Office Visit [address] [address] Maricarmen Winn FNP [address] [place] [phone] documented as of this encounter Goals Goal [...] documented as of this encounter Care Teams Bench Lay Out Technician Relationship Specialty Start Date End Date Maricarmen Winn FNP [address] [place] [phone] PCP - General Family Medicine 07/13/22 documented as of this encounter
--- OUTSIDE RECORDS SUMMARY | 2024-10-28 14:52 | XMS_ITS | Encounter Summary ---
Author Organization [employer] Address [address] [facility] [address] [place] [address] Care Team Providers Care Office Professionals Name Role Phone [facility] Primary Care Provider [phone] Encounter Details Date Type Department Care Team (Late st Contact Info) Description 08/01/2023 Orders Only [facility] [address] [place] [address] Shayy Baer RN Uncomplicated opioid dependence (CMS/HCC) [...] with others, in a hotel, in a custodial, living outside on the street, on a [...] Description 11/13/2024 9:00 AM EDT Office Visit [facility] [address] [place] [address] [phone] Vasquez Farooq MD [address] [place] [address] [phone] 11/18/2024 1:45 PM EDT Office Visit [facility] [address] [place] [phone] Maricarmen Winn FNP [address] [place] [phone] documented as of this encounter Goals Goal [...] documented as of this encounter Care Teams Office Professionals Relationship Specialty Start Date End Date Maricarmen Winn FNP [address] [place] [phone] PCP - General Family Medicine 07/13/22 documented as of this encounter
--- OUTSIDE RECORDS SUMMARY | 2024-10-28 14:52 | XMS_ITS | Encounter Summary ---
Author Organization [facility] Address [address], [place] [address] Care Team Providers Care Bilingual Legal Assistant Name Role Phone Maricarmen Winn [facility] Primary Care Provider [phone] Encounter Details Date Type Department Care Team ([facility] st Contact Info) Description 08/14/2024 Telephone [facility] [address] [place], [place] [phone] [facility] [address] [place] [address] Social History Tobacco Use Types Packs/Day Years [...] Description 11/13/2024 9:00 AM EDT Office Visit [facility] [address] [place] [phone] Vasquez Farooq MD [address] [place] [phone] 11/18/2024 1:45 PM EDT Office Visit [facility] [address] [place] [address] [phone] Maricarmen Winn FNP [address] [place] [address] documented as of this encounter Goals Goal Patient Goal Type Associated Problems Recent Progress Patient-Stated? Author Blood Pressure < 140/90 Blood Pressure 132/78( 025 2:27 PM EDT) No Fallon Pizarro, Alexa documented as of this encounter Visit Diagnoses Not on filedocumented in this encounter Additional Health Concerns Assessment Noted Time PHQ-9 Depression Total Score: 0 03/27/20 24 2:26 PM EDT documented as of this encounter Care Teams Bilingual Legal Assistant Relationship Specialty Start Date End Date Maricarmen Winn FNP [address] [place] [phone] PCP - General Family Medicine 07/13/22 documented as of this encounter
--- NOTE | 2024-10-28 15:14 | A.SPINEOV_ITS ---
Intake Visit Reasons: F/up after PT Intake Note: Mr. Russell Heck is here today to follow up after PT. Cable Repairer Required: Yes Cable Repairer Services: Cable Repairer Present Cable Repairer Name: Prema Fernandez LM Allergies No Known Allergies Allergy (Verified 07/11/24 14:01) Assessment & Plan Assessment & Plan (1) Back pain: Code(s): M54.9 - Dorsalgia, unspecified Category: Medical Plan Mr Russell Heck is following up in the office today. He continues to have severe back pain shooting down his right leg into his tibial region. I used my internship coordinator Prema as certified it business analyst for this visit. The pain is particularly bad when he stands and walks. His MRI done here at [place] again shows severe degenerative disc disease with right L4 foraminal stenosis. Right now he is not anticipating doing surgery or any injections because the pain is not that bad, but he will call us if the pain intensifies. He did undergo physical therapy for number of sessions a few months back but it just gave him too much pain so he discontinued it. Of note, I did see he had a bone scan done showing osteopenia. He does have a history of alcohol abuse as well as narcotic abuse. He has been drug free from street drugs for the last 2 years, but continues to drink about 5-6 beers a day. I did discuss with him the fact that with his history of substance abuse hanging over the picture, that his chances for success are lower than someone who does not have previous substance abuse issues. He understands, and that is why he wants to wait to have surgery until it becomes absolutely intolerable. I agree with him 100% on this. If he does come back at some point, I will review his imaging with Dr. Brannon to see what we can do for him surgically as the best approach. Total amount of time spent in this visit was 20 minutes in discussion of symptoms, lumbar imaging results and subsequent plan of care Oswald Brannon MD,PhD [facility] Coding Level of Care Code Est Pt Level 3 (82266) Diagnoses Back pain M54.9
== END 2024-10-28 15:52 | disposition home or self-care (01) ==
LOC: HO.HNS 14:48
PROVIDERS: PCP Registered Nurse; Visit Provider Physician Assistant
DX: M54.9 Dorsalgia, unspecified (principal)
CPT/HCPCS: 99213

== ENCOUNTER → 2024-10-28 14:47 | Outpatient (BNVA) | payer MEDICARE, MEDICAID, SELFPAY | PROVIDERS: PCP Registered Nurse; Visit Provider Physician Assistant | DX: M54.9 Dorsalgia, unspecified (principal) | CPT/HCPCS: 99212 ==

== ENCOUNTER 2025-01-22 06:57 | Outpatient (REF) | payer MEDICARE, MEDICAID, SELFPAY ==
[2025-01-22 07:47] LABS: Hemoglobin A1C 141.6040 umol/L; Total Hemoglobin (HGBA1C) 3295.0327 umol/L
[2025-01-22 08:14] LABS: Anion Gap 14 (12-20); Blood Urea Nitrogen 16 mg/dL (9-16); Calcium 8.7 mg/dL (8.4-10.2); Carbon Dioxide 24 mmol/L (22-29); Chloride 104 mmol/L (96-108); Cholesterol 224 mg/dL (<200); Estimated Glomerular Filt Rate > 60; HDL Cholesterol 98 mg/dL (>40); Potassium 4.0 mmol/L (3.3-5.1); Sodium 138 mmol/L (135-145); Triglycerides 46 mg/dL (<150)
== END 2025-01-22 06:58 | disposition home or self-care (01) ==
LOC: HO.LAB 06:57
PROVIDERS: PCP Registered Nurse; Visit Provider Registered Nurse
DX: E88.810 Metabolic syndrome (principal); R73.9 Hyperglycemia, unspecified
CPT/HCPCS: 36415; 80048; 80061; 83036